=== PATIENT | female | born 1970 | race Caucasian/White ===

== ENCOUNTER 2016-03-29 16:42 | Inpatient (IN) | payer OTHER ==
[~2016-03-29] VITALS: Ht 162.6 cm; Wt 54.4 kg
[2016-03-29] VITALS (9 sets, daily range): BP systolic 96–125; BP diastolic 60–85; PULSE 116–122; RESP 16–22; O2SAT 97–100
--- NOTE | 2016-03-29 16:43 | ED.REPORT ---
HPI-Chest Pain 40 and Over Date of Service Mar 29, 2016 ED Provider: Nursing Notes Stated Complaint: INTUBATED General Time Seen by MD: 16:43 Discharge & Departure Referrals: Carlton Villarreal MD (PCP/Family) Des Munoz MD Mar 29, 2016 16:43
[2016-03-29] MEDS ORDERED: 0.9% Sodium Chloride 1,000 ML IV ONE ×2 (16:46→22:15)
[2016-03-29] MEDS ORDERED: Albuterol 0.5% (5mg/mL) 20 mL Inhalation Solution ONE (16:46)
--- NOTE | 2016-03-29 16:46 | ED.REPORT ---
HPI-General Illness Date of Service Mar 29, 2016 ED Provider: Bryn Wilson MD The patient is a 45 year old female who was brought to the emergency department by EMS for respiratory distress. The patient has been sick for the last few weeks with a cough and worsening shortness of breath. The patient also mentioned chest pain and diaphoresis. She has been trying to treat herself with albuterol, steroids, and Atrovent. There was also a mention of recently using cocaine, timeframe is unclear. When medics arrived the patient was tripoding, short of breath and very anxious. They attempted a DuoNeb and 1 mg Versed with no improvement. The patient continued to decline and was subsequently intubated. Medics have given a total of 5 mg Versed, 20 etomidate, 140 succinylcholine, and 400 ketamine. Nursing Notes Stated Complaint: INTUBATED Nursing Notes Reviewed: Yes Allergies: Coded Allergies: No Known Allergies (Unverified , 03/29/16) Unable to Obtain Active Prescriptions or Reported Meds General Time Seen by MD: 16:45 Chief Complaint Other (respiratory distress) Hx Obtained From: Other family..., EMS Unable to Obtain Hx: Patient condition Arrived By: Ambulance Sudden in Onset?: Yes Onset Occurred: 1 - 4 hours ago Symptom Duration: Since onset Recent Healthcare: No recent hospitalization Similar Sx Previous: No Past Medical History Smoking History Unknown if Ever Smoker Social History Other Social History: , Local resident Ambulatory Status Independent Unable to Obtain History Past medical history, Past surgical history Review of Systems Unable to Obtain ROS Patient condition, Intubated Full Review of Systems Respiratory: Reports: Non-productive cough, Shortness of breath Cardiovascular: Reports: Chest pain Skin: Reports Diaphoresis Physical Exam Vital Signs Vital Signs Date Time Temp Pulse Resp B/P Pulse Ox O2 Delivery O2 Flow Rate FiO2 03/29/16 17:17 125 03/29/16 16:49 118 19 96/64 100 ET Tube Initial VS: Reviewed Head / Eyes: Atraumatic, Normocephalic, PERRL Neck: Supple, Non-tender, Full range of motion Abdomen / GI: Soft, Non-tender, No guarding, No rebound, No distention Extremities: No swelling Skin: Warm, Dry Alertness: Positive: Sedated, Unresponsive Intubated Head / Eyes: Atraumatic, Normocephalic No sign of trauma. Pupils equal and reactive. ENT: Mucous membranes moist Respiratory / Chest: Breath sounds = bilat Resp Distress / Stridor: Positive: Intubated Diminished Breath Sounds: Positive: Decreased bilateral Wheezing / Retractions: Positive: Wheezing moderate Cardiovascular: Regular rhythm, Heart sounds NL Heart Rate / Rhythm: Positive: Tachycardia Upper Extremities Upper Extremity / MS: Neurologic intact, Vascular intact Injection site about her right AC fossa Mental Status: Positive: Pharmacologically sedated, Unresponsive PSYCHIATRIC: Unable due to the patient's condition Interpretation & Diagnostics Lab Results Interpretation Result Diagram: 03/29/16 1657 03/29/16 1657 Test 03/29/16 16:57 03/29/16 17:48 White Blood Count 10.7th/mm3 (3.8-10.1) Red Blood Count 5.43mil/mm3 (3.90-5.20) Hemoglobin 14.9g/dL (12.0-15.6) Hematocrit 45.2% (35.0-46.0) Mean Corpuscular Volume 83.2fL (81-100) Mean Corpuscular Hemoglobin 27.4pg (27.0-35.0) Mean Corpuscular Hemoglobin Concent 33.0% (32.0-37.0) Red Cell Distribution Width 14.8% (12.3-15.4) Platelet Count 316bil/L (150-400) Neutrophils (%) (Auto) 76.9% (40-74) Lymphocytes (%) (Auto) 11.7% (14-46) Monocytes (%) (Auto) 7.8% (4-12) Eosinophils (%) (Auto) 2.9% (0-5) Basophils (%) (Auto) 0.4% (0-3) Sodium Level 140mEq/L (134-144) Potassium Level 5.2mEq/L (3.5-5.2) Chloride Level 105mEq/L (97-108) Carbon Dioxide Level 18mmol/L (18-29) Blood Urea Nitrogen 6mg/dL (6-24) Creatinine 0.74mg/dL (0.57-1.00) Estimat Glomerular Filtration Rate 121mL/min (>59) Glucose Level 185mg/dL (60-99) Lactic Acid Level 2.6mmol/L (0.4-2.0) Calcium Level 7.9mg/dL (8.5-10.1) Magnesium Level 2.4mg/dL (1.6-2.6) Total Bilirubin 0.2mg/dL (0.0-1.2) Aspartate Amino Transf (AST/SGOT) 26U/L (0-50) Alanine Aminotransferase (ALT/SGPT) 13U/L (0-32) Alkaline Phosphatase 71U/L (25-150) Troponin T 0.053ug/L (0.0-0.011) Pro-B-Type Natriuretic Peptide 105.5pg/mL (0-249) Total Protein 7.9g/dL (6.4-8.4) Albumin 3.9g/dL (3.4-5.0) Procalcitonin < 0.05ng/mL (See Comment) Urine Color Yellow (YELLOW) Urine Appearance Clear (CLEAR,HAZY) Urine pH 6.0 (5.0-8.0) Urine Specific [place] 1.028 (1.003-1.035) Urine Protein 30mg/dL (NEG,TRACE) Urine Glucose (UA) Negativemg/dL (NEGATIVE) Urine Ketones Negativemg/dL (NEGATIVE) Urine Occult Blood Negative (NEGATIVE) Urine Nitrite Negative (NEGATIVE) Urine Bilirubin Negative (NEGATIVE) Urine Urobilinogen Normalmg/dL (NORMAL) Urine Leukocyte Esterase Negative (NEGATIVE) Urine RBC 0-2/hpf (0-2) Urine WBC 0-5/hpf (0-5) Urine Epithelial Cells Occasional/hpf (NONE-MOD) Urine Crystals None seen (NONE SEEN) Urine Bacteria Few/hpf (NONE-FEW) Urine Hyaline Casts None/lpf (NONE) Urine Granular Casts Rare (NONE SEEN) Urine Waxy Casts None seen (NONE SEEN) Urine Red Blood Cell Casts None seen (NONE SEEN) Urine White Blood Cell Casts None seen (NONE SEEN) Urine Mucus None seen (None Seen) Urine Trichomonas None seen (NONE SEEN) Urine Yeast None (NONE SEEN) Urinalysis Comment None Urine Culture Reflexed Not indicated ECG Interpretation ECG Interpretation: Sinus rhythm with a rate of 119 bpm Normal axis Normal intervals No ST segment changes Anterior Q waves No priors for comparison Time: 17:20 Interpreted by: ED physician X-Ray Chest Interpretation Chest Xray Interpretation: IMPRESSION: No acute process. Dictated by: Karan Ramsey M.D. on 03/29/2016 at 17:07 Interpretation / Wet Read by: Interpret - Radiologist Re-Eval/Medical Decision Med Decision/Clinical Course The patient is a 45 year old female who was brought to the emergency department by EMS for respiratory distress. The patient has been sick for the last few weeks with a cough and worsening shortness of breath. The patient also mentioned chest pain and diaphoresis. She has been trying to treat herself with albuterol, steroids, and Atrovent. There was also a mention of recently using cocaine, timeframe is unclear. When medics arrived the patient was tripoding, short of breath and very anxious. They attempted a DuoNeb and 1 mg Versed with no improvement. The patient continued to decline and was subsequently intubated. Medics have given a total of 5 mg Versed, 20 etomidate, 140 succinylcholine, and 400 ketamine. Upon arrival the patient was intubated and mechanically ventilated with very poor air movement throughout both lung galdamez and diffuse wheezing. She had good oxygen saturation and ventilator settings were appropriately modified in the setting of her obstructive pulmonary disease. Chest x-ray verified endotracheal tube placement and there was no focal pneumonia or pneumothorax. Given the severity of the patient's presentation I administered IV magnesium, terbutaline and methylprednisolone. She was placed on continuous albuterol through her endotracheal tube. She was initially borderline hypotensive and sedation was achieved with IV fentanyl and Versed. Her blood pressure improved with IV fluids and she remained hemodynamically stable. Laboratory studies were notable as below: CBC: leukocytosis of 10.7, hematocrit 45.2, CMP: BUN 6, creatinine 0.74, glucose 185, lactate 2.6, troponin 0.053, UDS Positive for benzodiazepines, methamphetamine, tricyclic antidepressants, ecstasy, and amphetamines negative I suspect that the patient's polysubstance abuse may be a continuing factor to her severe acute onset of respiratory distress though history is extremely limited because she is intubated. Of note she had a somewhat elevated troponin though her EKG was reassuring. I suspect that her elevated troponin may be stress induced and in the setting of multiple sympathomimetic drugs. We will trend her troponin. The patient was discussed with the admitting ICU physician accepted for further management. She remained in the emergency department for a prolonged period of time due to lack of immediate availability of ICU beds. Source of Hx: Old records, EMS, Family Time of Eval: 17:00 Re-Evaluation/Progress Note: Rechecked the patient. Time of Eval: 17:20 Re-Evaluation/Progress Note: The ET tube is in good placement. Time of Eval: 17:39 Re-Evaluation/Progress Note: Rechecked the patient. Her is at bedside. Discussed her current condition and plan for admission with her . Time of Eval: 18:04 Re-Evaluation/Progress Note: Rechecked the patient. Her vital signs are stable. Consultation : Referral / Consult Name: Kiran Whitman MD Consulted With: Hospitalist Call Returned at: 16:55 Education Consultant: Will see patient, Agrees with eval, Agrees with plan, Accepts admit Counseled Regarding: Diagnosis, Lab results, Need for admission Discharge & Departure Primary Impression: Acute respiratory failure Respiratory failure complication: hypoxia Qualified Code: J96.01 - Acute respiratory failure with hypoxia Additional Impressions: Polysubstance abuse Hypoxia Asthma Asthma severity: unspecified severity Asthma complication type: with status asthmaticus Qualified Code: J45.902 - Unspecified asthma with status asthmaticus Elevated troponin Leukocytosis Leukocytosis type: unspecified Qualified Code: D72.829 - Elevated white blood cell count, unspecified Dehydration Elevated lactic acid level Disposition: ADMITTED TO HOSPITAL Discharge Condition All VS Reviewed: Yes Condition: Stable Referrals: Carlton Villarreal MD (PCP/Family) Crit Care Except Billable Proc Time Spent: 165-194 minutes Services Performed: Patient management by me, Time spent at bedside, Reviewing test results, Reviewing imaging, Discussing patient care, Documentation in record, Time with fam/surrogate Scribe Attestation Portions of this note were transcribed by Monika Tomas. I, Dr. Wilson personally performed the history, physical exam and medical decision-making; I reviewed and confirmed the accuracy of the information in the transcribed note. Signed by: Jose Luis Cui, 03/29/2016 and 7235. copies to: Carlton Villarreal MD, Beck O MD Mar 29, 2016 16:46 Monika Tomas Mar 29, 2016 16:54
[2016-03-29] MEDS ORDERED: Magnesium Sulf 2 Gm/50mL Water 2 GM in IV Premix 1 EACH IV ONE (16:50)
[2016-03-29] MEDS ORDERED: Albuterol 2.5 mg/3 mL Inhalation Solution NEB ONE ×2 (16:50)
[2016-03-29] MEDS ORDERED: Albuterol-Ipratropium 3 mL Inhalation Solution NEB ONE ×2 (16:50)
[2016-03-29] MEDS ORDERED: MethylprednisoLONE Sodium Succinate 62.5 mg/mL 2 mL Inj IVPUSH ONE (16:50)
[2016-03-29] MEDS: Propofol Inj 1,000,000 MCG in IV Premix 1 EACH IV SCH (16:56)
[2016-03-29] MEDS ORDERED: Alum-Mag Hydrox-Simeth 30 mL Suspension PO PRN (17:00)
[2016-03-29] MEDS ORDERED: Midazolam 5 mg/mL 10 mL Inj IV PRN (17:00)
[2016-03-29] MEDS ORDERED: Ondansetron 2 mg/mL 2 mL Inj IVPUSH PRN (17:00)
[2016-03-29] MEDS ORDERED: Senna-Docusate 8.6-50 mg Tablet PO PRN (17:00)
[2016-03-29] MEDS ORDERED: fentaNYL 2,500 mCg/250 mL 2,500 MCG in IV Premix 1 EACH IV SCH (17:00)
[2016-03-29 17:06] LABS: BASOPHILS % (AUTO) 0.4 % (0-3); EOSINOPHILS % (AUTO) 2.9 % (0-5); MONOCYTES % (AUTO) 7.8 % (4-12); Mean Corpuscular Hemoglobin 27.4 pg (27.0-35.0); Mean Corpuscular Volume 83.2 fL (81-100); NEUTROPHILS % (AUTO) 76.9 % (40-74); Platelet Count 316 bil/L (150-400)
--- NOTE | 2016-03-29 17:11 | DRSVH ---
PROCEDURE: X-RAY CHEST ONE VIEW, PORTABLE ([id number]) INDICATIONS: intubated TECHNIQUE: One view of the chest was acquired. COMPARISON: None. FINDINGS: Surgical changes and devices: An ETT is present, tip of which is in expected location. Lungs and pleura: No pleural effusions or pneumothorax. Lungs are clear. Mediastinum: Mediastinal contours appear normal. Heart size is normal. Bones and chest wall: No suspicious bony lesions. Overlying soft tissues appear unremarkable. IMPRESSION: No acute process. Dictated by: Karan Ramsey M.D. on 03/29/2016 at 17:07 Approved by: Karan Ramsey M.D. on 03/29/2016 at 17:07
[2016-03-29 17:47] LABS: Magnesium 2.4 mg/dL (1.6-2.6)
[2016-03-29 17:48] LABS: TROPONIN T 0.053 ug/L (0.0-0.011)
[2016-03-29] MEDS: 0.9% Sodium Chloride 1,000 ML IV SCH (17:49)
[2016-03-29] MEDS: fentaNYL 2,500 mCg/250 mL 2,500 MCG in IV Premix 1 EACH IV PRN (17:50)
[2016-03-29 17:59] LABS: APPEARANCE,URINE CLEAR (CLEAR,HAZY); COLOR,URINE YELLOW (YELLOW)
[2016-03-29 18:00] LABS: OCCULT BLOOD,URINE NEGATIVE (NEGATIVE); UROBILINOGEN,URINE NORMAL (NORMAL)
[2016-03-29] MEDS: Vancomycin Dose per Pharmacist XX SCH (19:10)
--- NOTE | 2016-03-29 19:31 | ABG ---
DateTimeAnalyzed 19:27:00 -_ pH ____7.189 - 7.350 7.450 pCO2 ___53.6__ -mmHg 35.0 45.0 pO2 176 -mmHg 69.0 116 HCO3- ___19.6__ -mmol/L 22.0 26.0 ABE ___-8.7__ -mmol/L -2.0 2.0 tHb ___13.5__ -g/dL O2Hb ___97.6__ -% COHb ____0.1__ -% MetHb ____1.0__ -% sO2 ___98.7__ -% FIO2 ___50.0__ -% PEEP ____5.0__ -cmH2O Set_RR ___16.0__ -b/min Vt __460.0__ -L Drawn By MK - Date/Time Notified____ 19:31:00 -_ Oxygen Device 1 VENTILATOR - Notified By MK - B 767 -mmHg tO2 ___18.9__ -Vol% Jamir test _Positive -
[2016-03-29] MEDS ORDERED: Vancomycin Inj 1,750 MG in Dextrose 5% 500 ML IV ONE (19:45)
[2016-03-29] MEDS: Chlorhexidine 0.12% 15 mL Oral Solution MT SCH (20:23)
--- NOTE | 2016-03-29 22:26 | PCM.HPMED ---
Subjective Date of Service Mar 29, 2016 Primary Provider: Admitting Physician: Kiran Whitman MD Primary Care Physician: Carlton Villarreal MD Attending Physician: Kiran Whitman MD Admit Status: From the Emergency Department, Full Admit, Critical Care Chief Complaint: Acute Respiratory failure History of Present Illness: Leanna Samano is a 45 year old female who was brought to the emergency department by EMS for respiratory distress. History from as patient was intubated on arrival. Patient has been sick for the last few weeks with a cough and worsening shortness of breath. The patient also mentioned chest pain and diaphoresis. She has been trying to treat herself with albuterol, steroids, and Atrovent but without any relief. There was also a mention of recently using cocaine, timeframe is unclear. denies any new carpeting or pets. Patient is a smoker with prior history of Meth abuse but states she has been clean for years. No sick contacts or travels reported When medics arrived the patient was tripoding, short of breath and very anxious. They attempted a DuoNeb and 1 mg Versed with no improvement. The patient continued to decline and was subsequently intubated. Medics have given a total of 5 mg Versed, 20 etomidate, 140 succinylcholine, and 400 ketamine. Review of Systems: Unable to be obtained Allergies Coded Allergies: No Known Allergies (Unverified , 03/29/16) Home Medications Unclear of what patient takes ( thinks its just inhalers) PMH Asthma Surgical History Not known ( does not know) Family History Both parents are healthy Social History Hx Alcohol Use: No Hx Substance Use: Yes ( states she previously used Meth) Hx Tobacco Use: Yes Smoking Status: Current Every Day Smoker Living Arrangement: with Family (with her ) Exam Vital Signs Vital Sign - Last Date Time Temp Pulse Resp B/P Pulse Ox O2 Delivery O2 Flow Rate FiO2 03/29/16 18:01 120 19 121/85 98 ET Tube Exam General: Sedated on the Ventilator Eyes: PERRLA, Scleral Anicteric Mouth: Mouth Normal, Mucous Membranes Moist/[place] Neck: Supple, no Thyromegaly, trachea central. Chest & Lungs: diffuse wheeze with crackles Cardiovascular: Normal S1, Normal S2, No Murmurs/Rubs/Gallops, Regular Rate/ Rhythm, (No JVD, no peripheral edema) Pulses: Radial (present and equal), Dorsalis Pedi (present and equal) Abdomen: Soft, Non-tender, Non-distended, Normoactive bowel tones. Musculoskeletal: Unremarkable. Normal range of motion, no swollen or erythematous joints Extremities: No edema, no cyanosis, no clubbing. Skin: No rashes. Warm and dry, no erythematous areas Neurological: Moving all extremity Lymphatic: Lymph nodes Cervical and Axillary not palpable. Lab and Diagnostics Labs Laboratory Tests Test 03/29/16 16:57 03/29/16 17:48 White Blood Count 10.7th/mm3 (3.8-10.1) Red Blood Count 5.43mil/mm3 (3.90-5.20) Hemoglobin 14.9g/dL (12.0-15.6) Hematocrit 45.2% (35.0-46.0) Mean Corpuscular Volume 83.2fL (81-100) Mean Corpuscular Hemoglobin 27.4pg (27.0-35.0) Mean Corpuscular Hemoglobin Concent 33.0% (32.0-37.0) Red Cell Distribution Width 14.8% (12.3-15.4) Platelet Count 316bil/L (150-400) Neutrophils (%) (Auto) 76.9% (40-74) Lymphocytes (%) (Auto) 11.7% (14-46) Monocytes (%) (Auto) 7.8% (4-12) Eosinophils (%) (Auto) 2.9% (0-5) Basophils (%) (Auto) 0.4% (0-3) Sodium Level 140mEq/L (134-144) Potassium Level 5.2mEq/L (3.5-5.2) Chloride Level 105mEq/L (97-108) Carbon Dioxide Level 18mmol/L (18-29) Blood Urea Nitrogen 6mg/dL (6-24) Creatinine 0.74mg/dL (0.57-1.00) Estimat Glomerular Filtration Rate 121mL/min (>59) Glucose Level 185mg/dL (60-99) Lactic Acid Level 2.6mmol/L (0.4-2.0) Calcium Level 7.9mg/dL (8.5-10.1) Magnesium Level 2.4mg/dL (1.6-2.6) Total Bilirubin 0.2mg/dL (0.0-1.2) Aspartate Amino Transf (AST/SGOT) 26U/L (0-50) Alanine Aminotransferase (ALT/SGPT) 13U/L (0-32) Alkaline Phosphatase 71U/L (25-150) Troponin T 0.053ug/L (0.0-0.011) Pro-B-Type Natriuretic Peptide 105.5pg/mL (0-249) Total Protein 7.9g/dL (6.4-8.4) Albumin 3.9g/dL (3.4-5.0) Procalcitonin < 0.05ng/mL (See Comment) Urine Color Yellow (YELLOW) Urine Appearance Clear (CLEAR,HAZY) Urine pH 6.0 (5.0-8.0) Urine Specific [place] 1.028 (1.003-1.035) Urine Protein 30mg/dL (NEG,TRACE) Urine Glucose (UA) Negativemg/dL (NEGATIVE) Urine Ketones Negativemg/dL (NEGATIVE) Urine Occult Blood Negative (NEGATIVE) Urine Nitrite Negative (NEGATIVE) Urine Bilirubin Negative (NEGATIVE) Urine Urobilinogen Normalmg/dL (NORMAL) Urine Leukocyte Esterase Negative (NEGATIVE) Urine RBC 0-2/hpf (0-2) Urine WBC 0-5/hpf (0-5) Urine Epithelial Cells Occasional/hpf (NONE-MOD) Urine Crystals None seen (NONE SEEN) Urine Bacteria Few/hpf (NONE-FEW) Urine Hyaline Casts None/lpf (NONE) Urine Granular Casts Rare (NONE SEEN) Urine Waxy Casts None seen (NONE SEEN) Urine Red Blood Cell Casts None seen (NONE SEEN) Urine White Blood Cell Casts None seen (NONE SEEN) Urine Mucus None seen (None Seen) Urine Trichomonas None seen (NONE SEEN) Urine Yeast None (NONE SEEN) Urinalysis Comment None Urine Culture Reflexed Not indicated Microbiology 03/29/16 Blood Culture, Received Pending Result Diagram: 03/29/167 03/29/161656 X-Rays, CTs and MRIs X-RAY CHEST ONE VIEW, PORTABLE 03/29 IMPRESSION: No acute process. Dictated by: Karan Ramsey M.D. on 03/29/2016 at 17:07 Approved by: Karan Ramsey M.D. on 03/29/2016 at 17:07 Assessment & Plan Leanna Samano is a 45 year old female who was brought to the emergency department by EMS for respiratory distress 1. Acute Hypoxic Respiratory Failure due to Asthma exacerbation. Present on admission Possible Viral infection triggering Asthma exacerbation. Possible she patient may be taking illegal drugs that may be contributing to her current demise. - continue Ventilator support, currently stable with current setting - Bronchodilators ordered - systemic steroids: Solu-Medrol 80 mg IV q 8 hours - Propofol and Fentanyl drips - will consult Pulmonology in the morning for ventilator management 2. Lactic acidosis. Present on admission Due to tissue hypoxia - trending levels till normal 3. Elevated troponin due to demand ischemia. Present on admission NO prior history of Coronary disease. - trending Troponin overnight - consider echo in the morning if troponin continues to elevate 4. Polysubstance Abuse Urine drug screen positive for amphetamine and cannabinoids. May be at risk for endocarditis. Nurse reporting possible track phillip on arms - Blood cultures send. if positive then echo will be pursued - Vancomycin IV, empirically 5. Nicotine Dependence - will discuss cessation when patient is extubated - Acetaminophen as needed for mild pain/fever/headache - Bowel regimen as needed - Antiemetic as needed Patient admitted under inpatient status with expected length of stay > 2 midnights for severity of present symptoms, complexities of treatment plan and risk for adverse event . Resuscitation Status: CPR: Attempt Resuscitation Time spent 1 hour critical care time spend Kiran Whitman MD Mar 29, 2016 18:07
--- NOTE | 2016-03-29 22:35 | ABG ---
DateTimeAnalyzed 22:30:00 -_ pH ____7.208 - 7.350 7.450 pCO2 ___50.5__ -mmHg 35.0 45.0 pO2 222 -mmHg 69.0 116 HCO3- ___19.3__ -mmol/L 22.0 26.0 ABE ___-8.3__ -mmol/L -2.0 2.0 tHb ___12.5__ -g/dL O2Hb ___97.9__ -% COHb ____0.1__ -% MetHb ____1.1__ -% sO2 ___99.1__ -% FIO2 ___50.0__ -% PEEP ____5.0__ -cmH2O Set_RR ___22.0__ -b/min Vt __380.0__ -L Drawn By blf - Date/Time Notified____ 22:35:00 -_ Spontaneous_RR ___24.0__ -b/min Oxygen Device 1 VENTILATOR - Notified By blf - Not[facility] -_ B 765 -mmHg tO2 ___17.7__ -Vol% OrderingPhysicianInitials mf - Jamir test N/A -
[2016-03-29] MEDS: Albuterol 0.5% (5mg/mL) 20 mL Inhalation Solution NEB SCH (22:49)
[2016-03-29] MEDS ORDERED: Ipratropium 0.02% 0.5 mg/2.5 mL Inhalation Solution NEB PRN (23:10)
[2016-03-29] MEDS: Albuterol 0.5% (5mg/mL) 20 mL Inhalation Solution NEB PRN (23:41)
[2016-03-30] VITALS (11 sets, daily range): BP systolic 97–126; BP diastolic 45–63; PULSE 110–119; RESP 14–24; O2SAT 96–100
[2016-03-30] MEDS: Chlorhexidine 0.12% 15 mL Oral Solution MT SCH ×6 (00:08→20:19)
[2016-03-30] MEDS: Heparin 5,000 Unit/mL Inj SUBQ SCH ×3 (00:08→17:26)
[2016-03-30] MEDS: MethylprednisoLONE Sodium Succinate 62.5 mg/mL 2 mL Inj IVPUSH SCH ×3 (00:08→17:26)
[2016-03-30] MEDS: Albuterol 0.5% (5mg/mL) 20 mL Inhalation Solution NEB PRN ×3 (00:17→05:33)
[2016-03-30] MEDS: Ipratropium 0.02% 0.5 mg/2.5 mL Inhalation Solution NEB SCH ×6 (00:17→20:11)
[2016-03-30] MEDS: Albuterol 2.5 mg/3 mL Inhalation Solution NEB SCH (00:30)
[2016-03-30] MEDS: Albuterol 0.5% (5mg/mL) 20 mL Inhalation Solution NEB SCH ×11 (00:30→20:11)
--- NOTE | 2016-03-30 00:36 | ABG ---
DateTimeAnalyzed 00:31:38 -_ pH ____7.199 - 7.350 7.450 pCO2 ___51.4__ -mmHg 35.0 45.0 pO2 111 -mmHg 70.0 100 HCO3- ___20.0__ -mmol/L 22.0 26.0 ABE ___-7.6__ -mmol/L -2.0 2.0 tHb ___12.7__ -g/dL 12.0 18.0 O2Hb ___96.9__ -% 95.0 COHb ____0.4__ -% 1.5 MetHb ____0.4__ -% 0.4 1.5 sO2 ___97.7__ -% FIO2 ___21.0__ -% PEEP ____5.0__ -cmH2O Set_RR 24 -b/min Vt __330.0__ -L Drawn By MD - Date/Time Notified____ 00:36:00 -_ Spontaneous_RR 26 -b/min Oxygen Device 1 VENTILATOR - Notified By MD - Notified Whom RN K.HERLICKSON - B 763 -mmHg K+ ____3.8__ -mmol/L tO2 ___17.4__ -Vol% Jamir test N/A -
[2016-03-30] MEDS: 0.9% Sodium Chloride 1,000 ML IV SCH ×2 (01:21→05:44)
[2016-03-30] MEDS: Propofol Inj 1,000,000 MCG in IV Premix 1 EACH IV SCH ×5 (01:22→19:55)
--- NOTE | 2016-03-30 02:13 | ABG ---
DateTimeAnalyzed 02:09:07 -_ pH ____7.205 - 7.350 7.450 pCO2 ___50.1__ -mmHg 35.0 45.0 pO2 116 -mmHg 70.0 100 HCO3- ___19.8__ -mmol/L 22.0 26.0 ABE ___-7.8__ -mmol/L -2.0 2.0 tHb ___12.4__ -g/dL 12.0 18.0 O2Hb ___97.1__ -% 95.0 COHb ____0.5__ -% 1.5 MetHb ____0.5__ -% 0.4 1.5 sO2 ___98.1__ -% FIO2 ___21.0__ -% PEEP ___10.0__ -cmH2O Set_RR 14 -b/min Vt __500.0__ -L Drawn By MD - Date/Time Notified____ 02:13:00 -_ Spontaneous_RR 14 -b/min Oxygen Device 1 VENTILATOR - Notified By MD - Notified Whom RN K. HERLICKSON -____ B 762 -mmHg K+ ____3.9__ -mmol/L tO2 ___17.1__ -Vol% Jamir test N/A -
[2016-03-30] MEDS ORDERED: 0.9% Sodium Chloride 500 ML IV ONE (02:30)
[2016-03-30] MEDS: Insulin Human REGular 300 Unit/3 mL Inj - Low SUBQ SCH ×4 (02:54→20:30)
--- NOTE | 2016-03-30 03:28 | PCM.CONPHA ---
Subjective Date of Service: Mar 29, 2016 Requesting Provider: Kiran Whitman MD Acute Respiratory failure Reason for Pharmacy Consult: Vancomycin Dosing Objective Vital Signs Date Time Temp Pulse Resp B/P Pulse Ox O2 Delivery O2 Flow Rate FiO2 03/30/16 00:05 Ventilator 03/30/16 00:05 36.4 111 24 104/62 99 Mechanical Ventilator 40 03/29/16 23:40 40 03/29/16 22:50 100 40 03/29/16 22:00 100 40 03/29/16 21:30 40 03/29/16 21:00 100 40 03/29/16 20:30 100 40 03/29/16 20:15 36.5 122 22 120/66 99 Mechanical Ventilator 50 03/29/16 20:15 Ventilator 03/29/16 20:07 36.9 121 16 105/60 97 Mechanical Ventilator 03/29/16 18:24 116 16 125/74 100 ET Tube 03/29/16 18:01 120 19 121/85 98 ET Tube 03/29/16 17:17 125 03/29/16 16:49 118 19 96/64 100 ET Tube Intake and Output 03/28/16 03/29/16 03/30/16 00:00 00:00 00:00 Intake Total 1050 ml Balance 1050 ml Weight (Kilograms): 61.100 Height (Feet): 5 Height (Inches): 4.00 Test 03/29/16 16:57 03/29/16 17:48 03/29/16 23:42 03/30/16 02:30 White Blood Count 10.7th/mm3 (3.8-10.1) Red Blood Count 5.43mil/mm3 (3.90-5.20) Hemoglobin 14.9g/dL (12.0-15.6) Hematocrit 45.2% (35.0-46.0) Mean Corpuscular Volume 83.2fL (81-100) Mean Corpuscular Hemoglobin 27.4pg (27.0-35.0) Mean Corpuscular Hemoglobin Concent 33.0% (32.0-37.0) Red Cell Distribution Width 14.8% (12.3-15.4) Platelet Count 316bil/L (150-400) Neutrophils (%) (Auto) 76.9% (40-74) Lymphocytes (%) (Auto) 11.7% (14-46) Monocytes (%) (Auto) 7.8% (4-12) Eosinophils (%) (Auto) 2.9% (0-5) Basophils (%) (Auto) 0.4% (0-3) Sodium Level 140mEq/L (134-144) Potassium Level 5.2mEq/L (3.5-5.2) Chloride Level 105mEq/L (97-108) Carbon Dioxide Level 18mmol/L (18-29) Blood Urea Nitrogen 6mg/dL (6-24) Creatinine 0.74mg/dL (0.57-1.00) Estimat Glomerular Filtration Rate 121mL/min (>59) Glucose Level 185mg/dL (60-99) Calcium Level 7.9mg/dL (8.5-10.1) Magnesium Level 2.4mg/dL (1.6-2.6) Total Bilirubin 0.2mg/dL (0.0-1.2) Aspartate Amino Transf (AST/SGOT) 26U/L (0-50) Alanine Aminotransferase (ALT/SGPT) 13U/L (0-32) Alkaline Phosphatase 71U/L (25-150) Pro-B-Type Natriuretic Peptide 105.5pg/mL (0-249) Total Protein 7.9g/dL (6.4-8.4) Albumin 3.9g/dL (3.4-5.0) Procalcitonin < 0.05ng/mL (See Comment) Urine Color Yellow (YELLOW) Urine Appearance Clear (CLEAR,HAZY) Urine pH 6.0 (5.0-8.0) Urine Specific [place] 1.028 (1.003-1.035) Urine Protein 30mg/dL (NEG,TRACE) Urine Glucose (UA) Negativemg/dL (NEGATIVE) Urine Ketones Negativemg/dL (NEGATIVE) Urine Occult Blood Negative (NEGATIVE) Urine Nitrite Negative (NEGATIVE) Urine Bilirubin Negative (NEGATIVE) Urine Urobilinogen Normalmg/dL (NORMAL) Urine Leukocyte Esterase Negative (NEGATIVE) Urine RBC 0-2/hpf (0-2) Urine WBC 0-5/hpf (0-5) Urine Epithelial Cells Occasional/hpf (NONE-MOD) Urine Crystals None seen (NONE SEEN) Urine Bacteria Few/hpf (NONE-FEW) Urine Hyaline Casts None/lpf (NONE) Urine Granular Casts Rare (NONE SEEN) Urine Waxy Casts None seen (NONE SEEN) Urine Red Blood Cell Casts None seen (NONE SEEN) Urine White Blood Cell Casts None seen (NONE SEEN) Urine Mucus None seen (None Seen) Urine Trichomonas None seen (NONE SEEN) Urine Yeast None (NONE SEEN) Urinalysis Comment None Urine Culture Reflexed Not indicated Urine Opiates Screen Negative Urine Methadone Screen Negative Urine Barbiturates Screen Negative Urine Amphetamines Screen Positive Urine Benzodiazepines Screen Positive Urine Cocaine Metabolite Screen Negative Urine Cannabinoids Screen Positive Lactic Acid Level 4.0mmol/L (0.4-2.0) Assessment/Plan Assessment/Plan A/ - 45 y/o female patient brought in ED by EMS, intubated on route for acute respiratory distress. Vancomycin was ordered to empirically covered - WBC: 10.7, afebrile. Flu, MRSA, sputum, and blood cultures: pending - wt: 61.1 kg, ht: 162.6 cm, SCr: 0.74 mg/dL, estimated clearance (ABW) ~ 92 mls/min, t1/2 ~ 9hrs - Target trough: 15-20 - Received Vancomycin 1.75G iv loading dose. The dose was calculated based on wrong weight entered at that time 81.1kg (20kg difference) P/ - Give Vancomycin 1G iv q12h. Trough level ordered before 4th dose @0800 on 03/31. This regimen would yield a trough around 17-18 Pharmacy will continue to follow and make necessary adjustment according to patient's clinical status and labs results Thank you. Cali Delacruz, PharmD, [facility] Ulysses Delacruz Mar 30, 2016 03:28
--- NOTE | 2016-03-30 04:22 | ABG ---
DateTimeAnalyzed 04:17:42 -_ pH ____7.247 - 7.350 7.450 pCO2 ___47.9__ -mmHg 35.0 45.0 pO2 125 -mmHg 70.0 100 HCO3- ___20.8__ -mmol/L 22.0 26.0 ABE ___-6.1__ -mmol/L -2.0 2.0 tHb ___12.6__ -g/dL 12.0 18.0 O2Hb ___97.4__ -% 95.0 COHb ____0.5__ -% 1.5 MetHb ____0.8__ -% 0.4 1.5 sO2 ___98.7__ -% FIO2 ___21.0__ -% PEEP ___10.0__ -cmH2O Set_RR 14 -b/min Vt __500.0__ -L Drawn By MD - Date/Time Notified____ 04:21:00 -_ Spontaneous_RR 14 -b/min Oxygen Device 1 VENTILATOR - Notified By MD - Notified Whom RN K.HERLICKSON - B 761 -mmHg K+ ____4.0__ -mmol/L tO2 ___17.4__ -Vol% Jamir test N/A -
--- NOTE | 2016-03-30 05:10 | NUR ---
admit note/resp status admit info done per info given per pt's parents, pt intubated prior to coming to ccu per moises from er, pt sedated on propofol and fentanyl gtts, hob up, ls- decreased and insp and exp wheezes, q30min to q1hr nebs given per rt--see orders, pt ls still wheezy but sounds like lung sounds are less tight, sml amount of whitish thin sputum per ett, oral care done, hospitalist aware of abg results and vent changes made post abg results per rt, medical staff services manager called by hospitalist and involved in pt's resp care, vent changes done per medical staff services manager orders, abg's improving, cxr done and hospitalist spoke with radiologist about having cxr read during the night, md aware pt's parents stated pt had moved a while ago to get out of a living area that had mold, propofol up to 45mcg/kg/min and fentanyl gtt up to 200mcg/hr per md order to help pt work with vent, appears to be helpful, nimbex use discussed then place on hold per pulmonology, scd'd on , turn q2hrs, hospitalist aware of pt's lab results, especially troponin and lactic acid, ivf given per orders with boluses, priscilla uop per f/c, am lab results pending, ogt placement wnl, ogt to lis, bt present, no bm, abd snt, tele- st, hr 105-120, bp low normal, see ccu flow sheet, for vital signs and vent settings, plan:nebs, resp support,
[2016-03-30 05:12] LABS: Mean Corpuscular Hemoglobin 26.7 pg (27.0-35.0); Mean Corpuscular Volume 85.2 fL (81-100)
[2016-03-30 05:39] LABS: Magnesium 2.2 mg/dL (1.6-2.6); Phosphorus 2.5 mg/dL (2.5-4.9)
[2016-03-30] MEDS: fentaNYL 2,500 mCg/250 mL 2,500 MCG in IV Premix 1 EACH IV PRN ×2 (06:40→19:54)
[2016-03-30] MEDS ORDERED: Vancomycin Inj 1,000 MG in IV Premix 1 EACH IV SCH ×2 (08:30→22:00)
[2016-03-30] MEDS: Vancomycin Dose per Pharmacist XX SCH (09:22)
--- NOTE | 2016-03-30 09:33 | DRSVH ---
PROCEDURE: X-RAY CHEST ONE VIEW, PORTABLE ([id number]) INDICATIONS: intubated TECHNIQUE: One view of the chest was acquired. COMPARISON: [facility], CR, XR CHEST 1VW (PORTABLE), 03/29/2016, 16:40. FINDINGS: Surgical changes and devices: Stable position of ETT and nasogastric tubes. Lungs and pleura: No pleural effusions or pneumothorax. Lungs are clear. Mediastinum: Mediastinal contours appear normal. Heart size is normal. Bones and chest wall: No suspicious bony lesions. Overlying soft tissues appear unremarkable. IMPRESSION: No acute cardiopulmonary disease. Dictated by: Tristan Grimaldo RRA Interpreted: Valorie Torres MD on 03/30/2016 at 9:33 Transcribed by: USMAN on 03/30/2016 at 9:33 Approved by: Valorie Torres MD, PhD on 03/30/2016 at 16:43
--- NOTE | 2016-03-30 11:34 | NUR ---
NUTRITION ASSESSMENT: ASSESS: Pt is a 45yo F admitted to CCU for respiratory distress. She is currently intubated and NPO. PMHX: Asthma, polysubstance abuse LABS: Reviewed. Glu 183, Ca 7.4, Alb 3.4, A1C pending MEDS: Reviewed. Solu Medrol, fentanyl, propofol currently running at ~10ml/hr to provide 264kcal/day GI: 0 BM SKIN: chalo 10, wound consult pending CURRENT WTS: 61.1kg, BMI 23.1kg/m2 DIET: NPO EST. NEEDS: vent Kcals: 1225-1530kcal/day (20-25kcal/kg) Pro: 95-110g/day (1.5-1.8g/kg) Fluid: 1530-1835ml/day (25-30cc/kg) NUTRITION DIAGNOSIS: 1.) Inadequate oral intake related to decreased ability to consume sufficient energy as evidenced by current NPO status. NUTRITION INTERVENTION: 1.) Will continue to monitor NPO/vent status. If pt continues to be NPO, recommend start nutrition support 2.) Recommend start TF of Vital 1.5 @ 10ml/hr and monitor tolerance. Once tolerated, advance by 10ml q 4 hrs until reach goal rate of 40ml/hr to provide 1320kcal (1584kcal w/propofol) and 59g/day (100% kcal and 62% pro needs). Flush 40ml q 4 hrs. If IVF stopped, flush 130ml q 3 hrs. 3.) Once at goal rate, recommend add 1 packet prosource TID to better meet pro needs. 4.) Adjust goal rate based on proprofol rate MONITOR / EVAL: NPO/vent, TF?, labs, wt, GI, POC, nutrition status. Will continue to monitor per high nutrition risk guidelines.
[2016-03-30] MEDS: Lactated Ringer's 1,000 ML IV SCH (11:45)
--- NOTE | 2016-03-30 12:53 | DRSVH ---
[facility] [address] [place] [address] Echocardiogram Report Name: OSMANY MARSHALL JStudy Date: 03/30/2016 Height: 64 in Hospital Exam Location: [facility] Weight: 135 lb Gender: Female BSA: 1.7 m2 : 1970 Age: 45 yrs BP: 102/63 mmHg Reason For Study: Respiratory Arrest Ordering Physician: Performed By: Evelyn Genao Referring Physician: Dr. Lucero Villarreal Interpretation Summary Left ventricular systolic function is moderately reduced with the ejection fraction estimated to be 40-45% with moderate global hypokinesis with severe hypokinesis in the mid septal and mid inferior and inferoposterior segments. This could be an appearance consistent with an atypical stress related cardiomyopathy but clinical correlation is needed. Diastolic function could not be accurately assessed due to tachycardia. The right ventricle grossly appears normal in size with probable normal systolic function. Pulmonary artery pressures cannot be estimated because of the lack of a measurable TR jet velocity but the IVC suggests a high right atrial pressure of 15 mm Hg. Both atria are grossly normal in size. There is no obvious significant valvular heart disease. The patient was in sinus tachycardia with heart rates between 115-120 bpm during the exam. Procedure: A two-dimensional transthoracic echocardiogram with color flow and Doppler was performed. The study quality was technically good. There is no prior echocardiogram noted for this patient. The patient was in sinus tachycardia with heart rates between 115-120 bpm during the exam. Left Ventricle: The left ventricle is normal in size. There is normal left ventricular wall thickness. Left ventricular systolic function is moderately reduced. The ejection fraction is estimated to be 40-45%. There is moderate global hypokinesis of the left ventricle. This is worse in the mid septal and mid inferior and inferoposterior segments. Diastolic function could not be accurately assessed due to tachycardia. Right Ventricle: The right ventricle grossly appears normal in size with probable normal systolic function. Atria: Both atria are normal in size. The interatrial septum is intact with no evidence for an atrial septal defect. Mitral Valve: The mitral valve is grossly normal. There is no mitral regurgitation. Aortic Valve: The aortic valve is not well visualized. The aortic valve is grossly normal. The aortic valve opens well. There is no hemodynamically significant valvular aortic stenosis. No aortic regurgitation is present. Tricuspid Valve: The tricuspid valve is normal in structure and function. No tricuspid regurgitation. Pulmonary artery pressures cannot be estimated because of the lack of a measurable TR jet velocity. Pulmonic Valve: The pulmonic valve is not well visualized. There is no significant valvular heart disease. Great Vessels: The aortic root is normal size. The ascending aorta is normal in size. The IVC is dilated (diameter is greater than 2.1 cm) and it collapses less than 50% with a sniff. This suggests a high right atrial pressure of 15 mm Hg. Pericardium/ Pleura There is no pericardial effusion. There is no pleural effusion. MMode/2D Measurements & Calculations LVIDd: 4.6 cm LA dimension: 2.6 cm Aortic Jxn EDV(MOD-sp2) LVIDs: 3.4 cm IVC diam: 2.2 cm : 47.6 ml FS: 26.9 % asc Aorta IVSd: 0.73 cm Diam: 3.0 cm LVPWd: 0.77 cm LV allen. diameter/BSA LV sys. diameter/BSA (cm/m^2): 2.8 (cm/m^2): 2.0 Doppler Measurements & Calculations Ao V2 max MV E max constantin MV E/A: 0.59 MV dec time : 119.6 cm/sec : 52.9 cm/sec Med Peak E' Constantin : 0.10 sec Ao max P.7 mmHg MV A max constantin Ao mean P.3 mmHg : 89.0 cm/sec E/E' med: 10.1 MV P1/2t: 30.5 msecLat Peak E' Constantin E/E' lat: 5.8 MV P1/2t max constantin Ao V2 mean : 87.2 cm/sec Ao V2 VTI: 18.0 cm MVA(P1/2t): 7.2 cm2 Reading Physician:12:52 PM
--- NOTE | 2016-03-30 13:20 | NUR ---
Respiratory/Cardiac Pt LS diminished with inspiratory wheeze, and long expiratory phase with wheeze. Vent settings: FiO2 40%, PEEP 10, Vt 500, Rate 14; SpO2 high 90s. Solu-Medrol IVP scheduled. in to visit pt, pt became very aggitated, increased propofol from 45mcg/kg/min to 50mcg/kg/min, Fent at 200mcg/hr. RASS -[address] 1-teens, BPs 90s-100s/50s. Turned Q2H.
--- NOTE | 2016-03-30 14:04 | PCM.PNMED ---
Subjective Date of Service Mar 30, 2016 Subjective pt was vented, had possible autopeep, vent management discussed with overnight increased the rate, respiratory acidosis improved. AM Ppeak 40, Pplat20 40%, 14, 500, peep10 Exam Vital Signs Vital Sign - Last Date Time Temp Pulse Resp B/P Pulse Ox O2 Delivery O2 Flow Rate FiO2 03/30/16 11:30 Ventilator 03/30/16 11:30 37.0 115 14 101/56 98 40 Intake and Output 03/29/16 03/29/16 03/30/16 Cumulative From/Thru 15:00 23:00 07:00 03/29/16 16:49 - 03/30/16 06:15 Intake Total 1050 ml 3550 ml 4600 ml Output Total 750 ml 750 ml Balance 1050 ml 2800 ml 3850 ml Intake Oral 0 ml 0 ml IV Total 1050 ml 3550 ml 4600 ml Output Urine Total 700 ml 700 ml Gastric Drainage Total 50 ml 50 ml # Bowel Movements 0 0 Exam vented, sedated, no JVD, MMM, no LAD RRR, nl s1, s2 no mrg CTAB, no w,c S,ND,NT,normoactive BS+ warm, no edema, pulses 2/2 IVs and Medications Medications Reviewed: Medications were reviewed in detail Lab and Diagnostics Result Diagram: 03/30/16 0450 03/30/16 0450 X-Rays, CTs and MRIs X-RAY CHEST ONE VIEW, PORTABLE 03/29 IMPRESSION: No acute process. Dictated by: Karan Ramsey M.D. on 03/29/2016 at 17:07 Approved by: Karan Ramsey M.D. on 03/29/2016 at 17:07 Assessment & Plan Leanna Samano is a 45 year old female who was brought to the emergency department by EMS for respiratory distress 1. Acute Hypoxic Respiratory Failure due to Asthma exacerbation. Present on admission Possible Viral infection triggering Asthma exacerbation. Possible she patient may be taking illegal drugs that may be contributing to her current demise. -appreciate Pulmonology management - continue Ventilator support - continue Bronchodilators - systemic steroids: Solu-Medrol 80 mg IV q 8 hours - Propofol and Fentanyl drips 2. Lactic acidosis. Present on admission Due to tissue hypoxia - trending levels till normal 3. Elevated troponin due to demand ischemia. Present on admission, NO prior history of Coronary disease. - FU TTE 4. Polysubstance Abuse Urine drug screen positive for amphetamine and cannabinoids. May be at risk for endocarditis. Nurse reporting possible track phillip on arms - Blood cultures send. if positive then echo will be pursued - Vancomycin IV, empirically 5. Nicotine Dependence - will discuss cessation when patient is extubated - Acetaminophen as needed for mild pain/fever/headache - Bowel regimen as needed - Antiemetic as needed dispo: pending CCU course, vented tube feed dvt ppx HSQ FC . VTE Mechanical Devices: Intermittant Pneumatic CD Resuscitation Status: CPR: Attempt Resuscitation Time spent 35min Yo Chun MD Mar 30, 2016 14:04
--- NOTE | 2016-03-30 17:12 | NUR ---
Social Work: Screen D: Per EMR review, pt is a 45 year old female admitted for acute respiratory failure. Pt is Blake GRIFFITHS. PCP is Carlton Villarreal MD. NOK is Ney and Izaiah Montilla, snow. Readmit score is not entered at this time. Advanced directives not on file. Pt lives in [place] with her spouse. She has a history of meth and cocaine use. Spouse states there is recent cocaine use but not meth. Pt will require CD assessment when appropriate. Pt continues to be intubated and sedated. A: Pt who was previously I. P: FIELD ENGINEER to continue to follow and complete CD assessment when appropriate; DCP pending clinical course. HEBER Langford
[2016-03-30] MEDS ORDERED: LORazepam 100 mg/100 mL NS 100 MG in IV Premix 100 EACH IV SCH (18:22)
--- NOTE | 2016-03-30 19:16 | DRSVH ---
PROCEDURE: CT ANGIO CHEST PULMONARY EMBOLISM ([id number]) INDICATIONS: SOB, VENT TECHNIQUE: After the administration of intravenous contrast, 2 mm thick sections acquired from the pulmonary api bridgette to the posterior costophrenic angles. 3-dimensional maximum intensity projection (MIP) coronal a nd sagittal reformats were then acquired through the thorax. For radiation dose reduction, the follo wing was used: automated exposure control, adjustment of mA and/or kV according to patient size. COMPARISON: [facility], CR, XR CHEST 1VW (PORTABLE), 03/30/2016, 1:45. FINDINGS: Image quality: Excellent. Pulmonary arteries: Pulmonary arteries are normal in size, and demonstrate no intraluminal filling d efects to suggest central pulmonary embolism. Lungs and pleura: Lungs are clear. No pleural effusions or pneumothorax. Central and peripheral ai rways are patent. Mediastinum: There is an endotracheal tube above latasha. A nasogastric tube is noted with the tip in stomach. Heart size is normal, without pericardial effusion. No mediastinal or hilar adenopathy. T horacic aorta is normal in caliber and enhancement. Esophagus is normal in caliber, without hiatal h ernia. Bones and chest wall: No suspicious bony lesions. Ribs and thoracic spine appear intact throughout. Thyroid gland is normal. No axillary or supraclavicular adenopathy. Abdomen: Visualized upper abdominal solid organs appear normal in the early arterial phase of enhanc ement. IMPRESSION: No evidence for acute pulmonary embolism. Dictated by: Jerrell Lake M.D. on 03/30/2016 at 19:14 Approved by: Jerrell Lake M.D. on 03/30/2016 at 19:15
--- NOTE | 2016-03-30 19:45 | PCM.CHPMED ---
Subjective Date of Service: Mar 30, 2016 Primary Physician: Admitting Physician: Kiran Whitman MD Primary Care Physician: Carlton Villarreal MD Attending Physician: Kiran Whitman MD Chief Complaint: Chief Complaint: ICU/Pulmonary consult: This is a 45 year old female with history significant for asthma, tobacco abuse , and polysubstance abuse who presented to [facility] on 03/29/2016 via EMS in respiratory distress after being intubated in the field. Patient is unable to answer questions as she is currently intubated and sedated. The provided the history. The patient has had progressively worsening shortness of breath over the last month which acutely worsened 24 hours ago. Her states that the illness began 1 month ago when her daughter became ill with similar symptoms. The daughter recovered after several days of URI symptoms. The reports that his had increased congestion, cough that was nonproductive, and wheezing. She was treating herself with her husbands albuterol, Atrovent, and steroids (as he is also an asthmatic). He stated on the morning of 03/29 she began to feel better but then suddenly became very short of breath. There was some complaint of chest pain as well. The patient has a long history of methamphetamine, cocaine, and alcohol abuse and the patients states she has not used illegal substances in over two years. Her urine tox screen was positive for methamphetamine, benzodiazpines, and cannabinoids. The patient currently smokes one pack of cigarettes per day. She previously worked in a [employer] but no longer is employed. No recent travel reported by the . Today she is intubated and sedated and therefore ROS is not available. PMH Past Medical History Asthma Bedside Blood Glucose: 119 Surgical History Unknown Home Medications Atrovent, albuterol, steroids (unknown type) Allergies: Coded Allergies: No Known Allergies (Unverified , 03/29/16) Family History Family History Unknown Social History Hx Alcohol Use: NoAlcoholic Drinks Per Day: hard liquor historyHx Substance Use: Yes ( states she previously used Meth)Hx Tobacco Use: Yes Smoking Status: Current Every Day Smoker Living Arrangement: with Family (with her ) Exam Vital Signs Vital Sign - Last Date Time Temp Pulse Resp B/P Pulse Ox O2 Delivery O2 Flow Rate FiO2 03/30/16 07:39 37.6 117 14 107/56 99 Mechanical Ventilator 40 Intake and Output 12/28/16 12/28/16 12/29/16 Cumulative From/Thru 15:00 23:00 07:00 03/29/16 16:49 - 03/30/16 06:15 Intake Total 1050 ml 3550 ml 4600 ml Output Total 750 ml 750 ml Balance 1050 ml 2800 ml 3850 ml Intake Oral 0 ml 0 ml IV Total 1050 ml 3550 ml 4600 ml Output Urine Total 700 ml 700 ml Gastric Drainage Total 50 ml 50 ml # Bowel Movements 0 0 Additional Information: General: intubated and sedated HEENT: Normocephalic, atraumatic. External ears without defect. Neck: No lymphadenopathy or thyromegaly. Cardiovascular: Regular rate and rhythm with no murmurs, rubs, or gallops appreciated Pulmonary: Coarse breath sounds, wheezing bilaterally. Abdomen: Bowel tones present. Soft, nondistended. No hepatosplenomegaly or masses appreciated. Extremities: No clubbing, cyanosis, edema, or lymphadenopathy appreciated. Skin: Normal temperature, turgor, and texture; no rash or subcutaneous nodules appreciated. Minor wounds noted on lower extremities Neurological: Patient is sedated. She is not responding to commands currently. Psychiatric: Intubated and sedated. Lab and Diagnostics Result Diagram: 03/30/16 0450 03/30/16 0450 X-Rays, CTs and MRIs Chest x-ray 03/30/2016: IMPRESSION: No acute cardiopulmonary disease. Dictated by: Tristan FATIMA Interpreted: Valorie Torres MD on 03/30/2016 at 9:33 Assessment & Plan Assessment This is a 45 year old female with history of asthma and polysubstance abuse who presented in acute respiratory failure: Acute respiratory distress likely secondary to asthma exacerbation and rhinovirus infection: -Current vent stettings: FiO2 40, PEEP 10, RR 15, Vt 500. -Positive for rhinovirus. -Sedation with fentnayl and proprofol. -History of severe asthma and currently using husbands inhalers as she has no PCP. -Albuterol and ipratropium ordered. -Solu-medrol 125mg q8h. Lactic acidosis: -Currently lactic acid is 1.2. This is after 3.5 liters of NS. -Continue fluids with lactated ringers. Elevated troponin: -.Troponins: 053 --> .234 --> .122 -Echocardiogram ordered. -EKG ordered. Polysubstance abuse: -Tox screen positive for methamphetamine, benzodiazepines, and cannabinoids. -Continue to watch for signs of withdrawal. DVT prophylaxis with subq heparin Problems: VTE Mechanical Devices: Intermittant Pneumatic CD Resuscitation Status: CPR: Attempt Resuscitation Attending Statement The patient was seen and examined together with Dr. Lara on 03/30/2017 and I agree with the history, exam and plan as outlined in the note above. Yuri Lara DO Mar 30, 2016 12:10 Eh Mehta MD Apr 27, 2016 10:32
[2016-03-30] MEDS: LORazepam Inj 100 MG in 0.9% Sodium Chloride 100 ML IV SCH (19:54)
[2016-03-31] VITALS (11 sets, daily range): BP systolic 96–116; BP diastolic 54–64; PULSE 97–115; RESP 14; O2SAT 96–98
[2016-03-31] MEDS: MethylprednisoLONE Sodium Succinate 62.5 mg/mL 2 mL Inj IVPUSH SCH ×3 (00:53→17:22)
[2016-03-31] MEDS: Chlorhexidine 0.12% 15 mL Oral Solution MT SCH ×6 (00:53→20:17)
[2016-03-31] MEDS: Lactated Ringer's 1,000 ML IV SCH (00:53)
[2016-03-31] MEDS: Heparin 5,000 Unit/mL Inj SUBQ SCH ×3 (00:53→17:22)
[2016-03-31] MEDS ORDERED: 0.9% Sodium Chloride 500 ML IV ONE (01:10)
[2016-03-31] MEDS ORDERED: Heparin 25K Unit/500mL 0.45 NS 25,000 UNIT in IV Premix 1 EACH IV SCH (01:10)
[2016-03-31] MEDS ORDERED: Heparin Protocol Boluses IVPUSH PRN (01:15)
[2016-03-31] MEDS: Insulin Human REGular 300 Unit/3 mL Inj - Low SUBQ SCH ×4 (02:30→20:18)
[2016-03-31 04:05] LABS: BASOPHILS % (AUTO) 0 % (0-3); EOSINOPHILS % (AUTO) 0 % (0-5); MONOCYTES % (AUTO) 3.6 % (4-12); Mean Corpuscular Hemoglobin 26.9 pg (27.0-35.0); Mean Corpuscular Volume 86.7 fL (81-100); NEUTROPHILS % (AUTO) 94.1 % (40-74); Platelet Count 269 bil/L (150-400)
[2016-03-31 04:24] LABS: Magnesium 2.2 mg/dL (1.6-2.6); Phosphorus 2.8 mg/dL (2.5-4.9)
[2016-03-31] MEDS: Ipratropium 0.02% 0.5 mg/2.5 mL Inhalation Solution NEB SCH ×2 (05:00→07:46)
[2016-03-31] MEDS: Albuterol 2.5 mg/3 mL Inhalation Solution NEB SCH ×3 (05:00→11:10)
--- NOTE | 2016-03-31 05:47 | ABG ---
DateTimeAnalyzed 05:42:00 -_ pH ____7.365 - 7.350 7.450 pCO2 ___47.9__ -mmHg 35.0 45.0 pO2 125 -mmHg 69.0 116 HCO3- ___26.7__ -mmol/L 22.0 26.0 ABE ____1.4__ -mmol/L -2.0 2.0 tHb ___11.9__ -g/dL O2Hb ___97.0__ -% COHb ____0.5__ -% MetHb ____1.0__ -% sO2 ___98.5__ -% FIO2 ___40.0__ -% PEEP ___10.0__ -cmH2O Set_RR ___14.0__ -b/min Vt __500.0__ -L Drawn By MK - Date/Time Notified____ 05:47:00 -_ Oxygen Device 1 VENTILATOR - Notified By MK - B 763 -mmHg tO2 ___16.5__ -Vol% Jamir test _Positive -
[2016-03-31] MEDS: Albuterol 0.5% (5mg/mL) 20 mL Inhalation Solution NEB PRN (07:49)
[2016-03-31] MEDS ORDERED: Vancomycin Serum Trough XX ONE ×2 (08:00→09:30)
[2016-03-31] MEDS: Propofol Inj 1,000,000 MCG in IV Premix 1 EACH IV SCH (08:00)
[2016-03-31] MEDS ORDERED: Vancomycin Dose per Pharmacist XX SCH (08:30)
--- NOTE | 2016-03-31 10:13 | DRSVH ---
PROCEDURE: X-RAY CHEST ONE VIEW, PORTABLE ([id number]) INDICATIONS: Vent TECHNIQUE: One view of the chest was acquired. COMPARISON: None. FINDINGS: Surgical changes and devices: Stable position endotracheal and nasogastric tubes. Lungs and pleura: No pleural effusions or pneumothorax. Lungs are clear. Mediastinum: Mediastinal contours appear normal. Heart size is normal. Bones and chest wall: No suspicious bony lesions. Overlying soft tissues appear unremarkable. IMPRESSION: Stable chest. Dictated by: Tristan Grimaldo [facility] Interpreted: Valorie Torres MD on 03/31/2016 at 10:12 Transcribed by: USMAN on 03/31/2016 at 10:12 Approved by: Valorie Torres MD, PhD on 03/31/2016 at 16:12
[2016-03-31] MEDS ORDERED: Albuterol-Ipratropium 3 mL Inhalation Solution NEB PRN (11:15)
--- NOTE | 2016-03-31 13:51 | NUR ---
NUTRITION FOLLOW-UP: ASSESS: Pt is a 45 YO female admitted to CCU with respiratory distress, status post intubation in the field, likely secondary to asthma exacerbation and rhinovirus infection. She remains intubated in CCU. Orders received to initiate trophic enteral feeding. PMHX: Severe asthma, polysubstance abuse, smoking. LABS: Reviewed. Cr 0.51, Glu 131, A1c 5.7, Alb 3.3. MEDS: Reviewed. Solu-medrol, insulin, ativan, fentanyl. Propofol currently running at ~4 ml/hr to provide 106 kcal/day. GI: 0 BM SKIN: Alireza 10. Wound consult initiated; evaluation pending. WT: 61.1 kg, BMI 23.1kg/m2. Admit weight: 61.1 kg. DIET: NPO EST. NEEDS: vent Kcals: 1225-1530kcal/day (20-25kcal/kg) Pro: 95-110g/day (1.5-1.8g/kg) Fluid: 1530-1835ml/day (25-30cc/kg) NUTRITION DIAGNOSIS: 1) Inadequate oral intake related to decreased ability to consume sufficient energy as evidenced by current NPO status - PERSISTS. NUTRITION INTERVENTION: 1) Recommend Vital 1.5 @ 10ml/hr and monitor tolerance. Once tolerated, advance by 5 ml q 4 hrs until reach goal rate of 40ml/hr to provide 1320kcal (1426 kcal w/propofol) and 59 g protein/day (100% kcal and 62% pro needs). Flush 40ml q 4 hrs. If IVF stopped, flush 130ml q 3 hrs. 3) Once at goal rate, recommend add 1 packet prosource TID to better meet pro needs. 4) Adjust goal rate based on proprofol rate MONITOR / EVAL: NPO/vent status, enteral feeding tolerance, labs, wt, GI, POC, nutrition status. Will continue to monitor per high nutrition risk guidelines.
--- NOTE | 2016-03-31 15:43 | PCM.PNMED ---
Subjective Date of Service Mar 31, 2016 Subjective Patient is intubated and sedated. No subjective or ROS obtainable. Exam Vital Signs Vital Sign - Last Date Time Temp Pulse Resp B/P Pulse Ox O2 Delivery O2 Flow Rate FiO2 03/31/16 12:30 101 110/57 97 40 03/31/16 12:30 36.6 14 Mechanical Ventilator Intake and Output 03/30/16 03/30/16 03/31/16 Cumulative From/Thru 15:01 23:01 07:01 03/29/16 16:49 - 03/31/16 06:03 Intake Total 1585 ml 1286 ml 7471 ml Output Total 910 ml 810 ml 2470 ml Balance 675 ml 476 ml 5001 ml Intake Oral 0 ml IV Total 1585 ml 1286 ml 7471 ml Output Urine Total 720 ml 650 ml 2070 ml Gastric Drainage Total 190 ml 160 ml 400 ml # Bowel Movements 0 0 0 Exam Intubated. Sedated. Normal skull. Anicteric sclera, conjugate gaze. Lungs clear\ CV RRR, No murmur Abdomen soft, ND No edema. IVs and Medications Medications Reviewed: Medications were reviewed in detail Lab and Diagnostics Result Diagram: 03/31/16 0335 03/31/16 0335 X-Rays, CTs and MRIs X-RAY CHEST ONE VIEW, PORTABLE 03/29 IMPRESSION: No acute process. Dictated by: Karan Ramsey M.D. on 03/29/2016 at 17:07 Approved by: Karan Ramsey M.D. on 03/29/2016 at 17:07 Assessment & Plan Leanna Samano is a 45 year old female who was brought to the emergency department by EMS for respiratory distress 1. Acute Hypoxic Respiratory Failure due to Asthma exacerbation. Present on admission Possible Viral infection triggering Asthma exacerbation. Possible she patient may be taking illegal drugs that may be contributing to her current demise. -appreciate Pulmonology management - continue Ventilator support - continue Bronchodilators - systemic steroids: Solu-Medrol 80 mg IV q 8 hours - Propofol and Fentanyl drips. Will lighten up on sedation over next 24 hours and pursue BT. 2. Lactic acidosis. Present on admission, resolved. Due to tissue hypoxia - trending levels till normal 3. Elevated troponin due to demand ischemia. Present on admission, NO prior history of Coronary disease. No further work up. - FU Tele 4. Polysubstance Abuse, POA Urine drug screen positive for amphetamine and cannabinoids. May be at risk for endocarditis. Nurse reporting possible track phillip on arms - Blood cultures send. if positive then echo will be pursued - Vancomycin IV, empirically 5. Nicotine Dependence, POA - will discuss cessation when patient is extubated - Acetaminophen as needed for mild pain/fever/headache - Bowel regimen as needed - Antiemetic as needed dispo: pending CCU course, vented tube feed dvt ppx HSQ FC . Pain Evaluation: Adequate Pain Control VTE Mechanical Devices: Intermittant Pneumatic CD Resuscitation Status: CPR: Attempt Resuscitation Time spent 35 minutes Jamir Rodrigues MD Mar 31, 2016 15:43
[2016-03-31] MEDS ORDERED: 0.9% Sodium Chloride 250 ML ONE (15:46)
[2016-03-31] MEDS: Albuterol-Ipratropium 3 mL Inhalation Solution NEB SCH ×2 (15:52→20:26)
[2016-03-31] MEDS: Dextrose 5% 0.45% NaCl 1,000 ML IV SCH (17:20)
--- NOTE | 2016-03-31 17:58 | PCM.PNMED ---
Subjective Date of Service Mar 31, 2016 Subjective This is a 45 year old female with history of polysubstance abuse and asthma who presented to the hospital after being intubated in the field due to acute respiratory failure. She had initially developed URI symptoms for several weeks. She is positive for rhinovirus. Urine tox positive for methamphetamines , benzodiazepines, and cannabinoids. History of recent cocaine use and distant alcoholism. The patient remains intubated and sedated. No overnight events. ROS was not able to be obtained due to intubation and sedation. Exam Vital Signs Vital Sign - Last Date Time Temp Pulse Resp B/P Pulse Ox O2 Delivery O2 Flow Rate FiO2 03/31/16 08:43 Ventilator 03/31/16 08:43 36.4 105 14 98/56 98 40 Intake and Output 03/30/16 03/30/16 03/31/16 Cumulative From/Thru 15:00 23:00 07:00 03/29/16 16:49 - 03/31/16 06:03 Intake Total 1585 ml 1286 ml 7471 ml Output Total 910 ml 810 ml 2470 ml Balance 675 ml 476 ml 5001 ml Intake Oral 0 ml IV Total 1585 ml 1286 ml 7471 ml Output Urine Total 720 ml 650 ml 2070 ml Gastric Drainage Total 190 ml 160 ml 400 ml # Bowel Movements 0 0 0 Exam General: intubated and sedated HEENT: Normocephalic, atraumatic. External ears without defect. Neck: No lymphadenopathy or thyromegaly. Cardiovascular: Regular rate and rhythm with no murmurs, rubs, or gallops appreciated Pulmonary: Coarse breath sounds, wheezing bilaterally (this is improved since yesterday).. Abdomen: Bowel tones present. Soft, nondistended. No hepatosplenomegaly or masses appreciated. Extremities: No clubbing, cyanosis, edema, or lymphadenopathy appreciated. Skin: Normal temperature, turgor, and texture; no rash or subcutaneous nodules appreciated. Minor wounds noted on lower extremities Neurological: Patient is sedated. She is not responding to commands currently. Psychiatric: Intubated and sedated. Lab and Diagnostics Result Diagram: 03/31/1633403/31/16334 X-Rays, CTs and MRIs X-RAY CHEST ONE VIEW, PORTABLE 03/29 IMPRESSION: No acute process. Dictated by: Karan Ramsey M.D. on 03/29/2016 at 17:07 Approved by: Karan Ramsey M.D. on 03/29/2016 at 17:07 03/30/2016 CT chest PE protocol: IMPRESSION: No evidence for acute pulmonary embolism. Dictated by: Jerrell Lake M.D. on 03/30/2016 at 19:14 Assessment & Plan This is a 45 year old female with history of asthma and polysubstance abuse who presented in acute respiratory failure: Acute respiratory distress likely secondary to asthma exacerbation and rhinovirus infection: -Current vent stettings: FiO2 40, PEEP 10, RR 15, Vt 500. -Positive for rhinovirus. -Sedation with fentnayl and proprofol. -History of severe asthma and currently using husbands inhalers as she has no PCP. -Duonebs q4h scheduled. -Solu-medrol 60mg q8h. -Tube feeds started. Positive blood culture, probable coag negative staph: -Vancomycin has been discontinued. Lactic acidosis, resolved: -Lactic acid is 1.2. -Lactated ringers discontinued as patient is 5 liters up. Elevated troponin: -.Troponins: 053 --> .234 --> .122 -Echocardiogram showed EF of 40-45% and severe hypokinesis globally. Polysubstance abuse: -Tox screen positive for methamphetamine, benzodiazepines, and cannabinoids. -Continue to watch for signs of withdrawal. DVT prophylaxis with subq heparin GI prophylaxis with famotidine. VTE Mechanical Devices: Intermittant Pneumatic CD Resuscitation Status: CPR: Attempt Resuscitation Attending Statement The patient was seen and examined together with Dr. Lara on 03/31/2017 and I agree with the history, exam and plan as outlined in the note above. Yuri Lara DO Mar 31, 2016 10:46 Eh Mehta MD Apr 27, 2016 10:50
--- NOTE | 2016-03-31 18:19 | NUR ---
Wound Care Pt sen with RN no skin issues at this time.
--- NOTE | 2016-03-31 19:06 | NUR ---
Respiratory/Cardiac/Sedation Pt LS improved from yesterday, diminished with BUL squeek and, diffuse wheeze, but more audible air movement. Vent settings: FiO2 40%, PEEP 10, Vt 500, Rate 14; SpO2 high 90s. Solu-Medrol IVP scheduled. Tele SR 90s to ST low 100s. Pt RASS -2 to -3 with propofol 5mcg/kg/min, Ativan 2mg/hr, Fent 100mcg/hr. TF initiated at 10cc/h at 1615, no residual noted.
[2016-03-31] MEDS: fentaNYL 2,500 mCg/250 mL 2,500 MCG in IV Premix 1 EACH IV PRN (19:23)
[2016-03-31] MEDS: Famotidine Inj 20 MG in IV Premix 1 EACH IV SCH (20:17)
[2016-03-31] MEDS: LORazepam Inj 100 MG in 0.9% Sodium Chloride 100 ML IV SCH (20:17)
[2016-04-01] VITALS (15 sets, daily range): BP systolic 103–138; BP diastolic 6–78; PULSE 86–100; RESP 12–14; O2SAT 94–98
[2016-04-01] MEDS: Albuterol-Ipratropium 3 mL Inhalation Solution NEB SCH ×7 (00:40→23:43)
[2016-04-01] MEDS: Chlorhexidine 0.12% 15 mL Oral Solution MT SCH ×6 (01:06→20:08)
[2016-04-01] MEDS: MethylprednisoLONE Sodium Succinate 62.5 mg/mL 2 mL Inj IVPUSH SCH ×4 (01:06→16:40)
[2016-04-01] MEDS: Heparin 5,000 Unit/mL Inj SUBQ SCH ×3 (01:06→16:43)
[2016-04-01] MEDS: Propofol Inj 1,000,000 MCG in IV Premix 1 EACH IV SCH ×2 (02:21→16:56)
[2016-04-01] MEDS: Insulin Human REGular 300 Unit/3 mL Inj - Low SUBQ SCH ×4 (02:30→20:08)
[2016-04-01 04:03] LABS: BASOPHILS % (AUTO) 0 % (0-3); EOSINOPHILS % (AUTO) 0 % (0-5); MONOCYTES % (AUTO) 5.6 % (4-12); Mean Corpuscular Volume 85.4 fL (81-100); NEUTROPHILS % (AUTO) 90.4 % (40-74); Platelet Count 271 bil/L (150-400)
[2016-04-01 04:26] LABS: Magnesium 2.2 mg/dL (1.6-2.6); Phosphorus 3.3 mg/dL (2.5-4.9)
[2016-04-01] MEDS: Dextrose 5% 0.45% NaCl 1,000 ML IV SCH (04:30)
[2016-04-01] MEDS: Polyethylene Glycol (PEG) 17 Gm Powder PO PRN (08:08)
[2016-04-01] MEDS: Famotidine Inj 20 MG in IV Premix 1 EACH IV SCH ×2 (08:08→20:08)
--- NOTE | 2016-04-01 08:52 | DRSVH ---
PROCEDURE: X-RAY CHEST ONE VIEW, PORTABLE ([id number]) INDICATIONS: 45-year-old female on ventilator. TECHNIQUE: One view of the chest was acquired. COMPARISON: [facility], CR, XR CHEST 1VW (PORTABLE), 03/31/2016, 5:04. [facility], CR, XR CHEST 1VW (PORTABLE), 03/30/2016, 1:45. [facility], CR, XR CHEST 1VW (POR TABLE), 03/29/2016, 16:40. FINDINGS: Surgical changes and devices: Endotracheal tube and nasogastric tube remain in expected positions. Lungs and pleura: No pleural effusions or pneumothorax. Lungs are clear. Mediastinum: Mediastinal contours appear normal. Heart size is normal. Bones and chest wall: No suspicious bony lesions. Overlying soft tissues appear unremarkable. IMPRESSION: No acute cardiopulmonary disease. Endotracheal tube is in expected position. Dictated by: Kristopher Iglesias M.D. on 04/01/2016 at 8:51 Approved by: Kristopher Iglesias M.D. on 04/01/2016 at 8:51
--- NOTE | 2016-04-01 10:24 | NUR ---
NUTRITION FOLLOW-UP: ASSESS: 45 YO female admitted to CCU with respiratory distress, status post intubation in the field, likely secondary to asthma exacerbation and rhinovirus infection. She remains intubated in CCU. Trophic enteral feeding well tolerated with no residuals. Plan for today is to move toward extubation, per Yellow Team. PMHX: Severe asthma, polysubstance abuse, smoking. LABS: Reviewed. Cr 0.50, Glu 123, A1c 5.7, Ca 8.2, AST 51, PAB 20. MEDS: Reviewed. Solu-medrol, insulin, ativan, fentanyl. Propofol currently running at ~2 ml/hr to provide 53 kcal/day. GI: No BM reported since admit x 3 D. SKIN: Alireza 10. Per Master Carpenter, there are no wound issues at this time. WT: 61.1 kg, BMI 23.1kg/m2. Admit weight: 61.1 kg. DIET: NPO x 3 D. ENTERAL FEEDING: Vital 1.5 @ 10 ml/hr. EST. NEEDS: vent Kcals: 1225-1530kcal/day (20-25kcal/kg) Pro: 95-110g/day (1.5-1.8g/kg) Fluid: 1530-1835ml/day (25-30cc/kg) NUTRITION DIAGNOSIS: 1) Inadequate oral intake related to decreased ability to consume sufficient energy as evidenced by current NPO status - PERSISTS. NUTRITION INTERVENTION: 1) Unless patient extubated today, recommend advance enteral feeding 5 ml every 4 hr. to goal 40 ml/hr, which would provide 1320kcal (1373 kcal w/propofol) and 59 g protein/day (100% kcal and 62% pro needs). Flush 40ml q 4 hrs. If IVF stopped, flush 130ml q 3 hrs. 3) Once at goal rate, recommend add 1 packet prosource TID to better meet pro needs. 4) Adjust goal rate based on proprofol rate MONITOR / EVAL: NPO/vent status, enteral feeding advance / tolerance, labs, wt, GI, POC, nutrition status. Will continue to monitor per high nutrition risk guidelines.
--- NOTE | 2016-04-01 11:03 | ABG ---
DateTimeAnalyzed 04:29:00 -_ pH ____7.393 - 7.350 7.450 pCO2 ___48.0__ -mmHg 35.0 45.0 pO2 ___91.9__ -mmHg 69.0 116 HCO3- ___28.6__ -mmol/L 22.0 26.0 ABE ____3.5__ -mmol/L -2.0 2.0 tHb ___12.2__ -g/dL O2Hb ___95.8__ -% COHb ____0.5__ -% MetHb ____0.9__ -% sO2 ___97.2__ -% FIO2 ___40.0__ -% PEEP ____8.0__ -cmH2O Set_RR ___14.0__ -b/min Vt __500.0__ -L Drawn By blf - Spontaneous_RR ___14.0__ -b/min Oxygen Device 1 VENTILATOR - B 763 -mmHg tO2 ___16.5__ -Vol% Jamir test _Positive -
[2016-04-01] MEDS ORDERED: Methylnaltrexone 12 mg/0.6 mL Inj SUBQ ONE (11:55)
--- NOTE | 2016-04-01 13:34 | PROG NOTE ---
[address] [address] PROGRESS NOTE PATIENT: OSMANY MARSHALL : 1970 MR#: [id number] ADMIT: 03/29/2016 JOB ID: [id number] DATE: 04/01/2016 PROBLEM LIST: 1. Status asthmaticus. 2. Hypoxemic hypercarbic respiratory failure, acute. 3. Polysubstance abuse. 4. Rhinovirus respiratory tract infection. SUBJECTIVE: None. OBJECTIVE: Temperature 36.3, pulse 78-90, respiratory rate 14 with ventilator set at 14, blood pressure 119/64, O2 sat on FiO2 of 40%, PEEP of 8, is 97%. I and O shows 2.2 L in, 1.6 L out. General appearance: Sedated on the ventilator. Chest: Fair breath sounds bilaterally. There is expiratory wheezes continuous throughout the entire phase of exhalation. There are some low-pitched crackles on the left. A little more discontinuous crackles on the right with tidal volume of 500, rate of 14, PEEP of 8, FiO2 of 0.4, peak inspiratory pressure 44, plateau 25. PEEP is set at 8, measured at 17. Heart: Regular rhythm. Heart tones seem normal. Abdomen soft. Nondistended. Quiet. Extremities: SCD in place. LABORATORY DATA: Shows a white count of 21,400 which is stable. Differential shows marked neutrophilia. Hemoglobin stable at 12.2. Platelet count 271,000. Sodium 141, potassium 5.2, chloride 104, CO2 is 27, BUN 17, creatinine 0.5. Lactic acid is 1.3, calcium 8.2 with an albumin of 3.1. Phosphorus 3.3, magnesium 2.2. Total bilirubin 0.2. AST mildly elevated at 51. ALT normal at 17. Alkaline phos normal at 60. ASSESSMENT: 1. The patient auto peeping secondary to significant worsening of her bronchospasm. Yesterday we were able to decrease the frequency of the nebulized bronchodilators as well as steroids. Will need to push the albuterol back up, continue using the antimuscarinic medications. Will also need to raise the steroids. Ventilator changes made by Respiratory Therapy. Ultimately settled on FiO2 of 0.4, tidal volume of 410, rate of 12, PEEP set at 10 to allow the patient to trigger the ventilator. Will need to obtain arterial blood gases to assess our degree of hypoventilation which I am sure is present at this point. 2. Lessening urine output. Having some increased problems with secretions. Will increase the fluids to not only help with kidney perfusion but also help to thin secretions which are increasing today. Somewhat peguero in color. Will send samples to the lab to get a handle on any superinfection the patient may be developing. 3. Sedation. Currently on fentanyl, low-dose of propofol as well as Ativan. The Ativan has been increased somewhat. Concern is over benzodiazepine withdrawal. Suspect that she will need increased sedation as we drop her tidal volume as this may give her the sensation of air hunger but the auto PEEP options are limited to the current settings. PLAN: 1. Morning bloods to consist of a CBC with diff, CMP, magnesium, phosphorus, and a procalcitonin. 2. Check a potassium later today given that we will be administering increasing doses of beta agonists. 3. Discontinue D5 half normal saline. 4. D5 normal saline at 125 mL an hour. 5. Albuterol 5 mg vial alternating with DuoNeb 1 vial by nebulizer q.2 h. 6. Increase methylprednisolone to 125 mg slow IV push q.8. Discussed the current findings with the patient's . Explained the worsening of bronchospasm and effects on lung, heart function and requiring her to remain intubated for the next few days. Time spent on critical care is 1 hour 20 minutes.
--- NOTE | 2016-04-01 14:10 | PCM.PNMED ---
Subjective Date of Service Apr 01, 2016 Subjective The patient is intubated and sedated. ROS and subjective are not obtainable. Exam Vital Signs Vital Sign - Last Date Time Temp Pulse Resp B/P Pulse Ox O2 Delivery O2 Flow Rate FiO2 04/01/16 08:30 36.3 90 14 119/64 97 Mechanical Ventilator 40 Intake and Output 03/31/16 03/31/16 04/01/16 Cumulative From/Thru 14:59 22:59 06:59 03/29/16 16:49 - 04/01/16 05:38 Intake Total 942 ml 1230 ml 9643 ml Output Total 800 ml 825 ml 4095 ml Balance 142 ml 405 ml 5548 ml Intake Oral 0 ml IV Total 901 ml 1115 ml 9487 ml Tube Feeding 11 ml 115 ml 126 ml Tube Irrigant 30 ml 30 ml Output Urine Total 525 ml 550 ml 3145 ml Gastric Drainage Total 275 ml 275 ml 950 ml # Bowel Movements 0 0 0 Exam Patient is intubated and sedated. Normal skull. Anicteric sclera. Oropharynx notable for endotracheal tube in place Lungs normal for expiratory and inspiratory wheezing. She has a fairly prolonged expiratory phase. She has been auto peaking overnight. Heart is regular without murmur Abdomen is soft nondistended. Extremities are free of edema Good pedal and radial pulses. Skin is free of rash or lesions IVs and Medications Medications Reviewed: Medications were reviewed in detail Lab and Diagnostics Result Diagram: 04/01/1632604/01/16326 X-Rays, CTs and MRIs X-RAY CHEST ONE VIEW, PORTABLE 03/29 IMPRESSION: No acute process. Dictated by: Karan Ramsey M.D. on 03/29/2016 at 17:07 Approved by: Karan Ramsey M.D. on 03/29/2016 at 17:07 03/30/2016 CT chest PE protocol: IMPRESSION: No evidence for acute pulmonary embolism. Dictated by: Jerrell Lake M.D. on 03/30/2016 at 19:14 Assessment & Plan This is a 45 year old female with history of asthma and polysubstance abuse who presented in acute respiratory failure: 1. Acute toxic respiratory failure, POA. Patient remains on the ventilator. He still struggles with her ongoing asthma which would prohibit her from weaning in the next day or 2. Pulmonology is following. Ventilation changes have been made today. We will keep her sedated and try to minimize auto PEEP with a higher level of PEEP. 2. Status asthmaticus. POA. We will continue methylprednisolone as well as her bronchodilators and a more frequent basis today. 3. Rhinovirus, URI. POA. Supportive care. 4. Positive blood culture, probable coag negative staph: This is felt to be a contaminant. -Vancomycin has been discontinued. 5. Lactic acidosis, airway. Resolved: -Lactic acid is 1.2. -Lactated ringers discontinued as patient is 5 liters up. 6. Elevated troponin on the POA.: -.Troponins: 053 --> .234 --> .122 -Echocardiogram showed EF of 40-45% (possible chronic systolic heart failure) and severe hypokinesis globally. No further workup at this time until she stabilizes. 7. Polysubstance abuse on the POA: -Tox screen positive for methamphetamine, benzodiazepines, and cannabinoids. -Continue to watch for signs of withdrawal, the Ativan has been titrated up as a drip to cover for possible benzodiazepine withdrawal symptoms.. DVT prophylaxis with subq heparin GI prophylaxis with famotidine. Pain Evaluation: Adequate Pain Control VTE Mechanical Devices: Intermittant Pneumatic CD Resuscitation Status: CPR: Attempt Resuscitation Time spent 35 minutes Jamir Rodrigues MD Apr 01, 2016 14:10
[2016-04-01] MEDS ORDERED: Albuterol-Ipratropium 3 mL Inhalation Solution NEB SCH (14:30)
[2016-04-01] MEDS: Dextrose 5% 0.9% NaCl 1,000 ML IV SCH (16:40)
[2016-04-01] MEDS: fentaNYL 2,500 mCg/250 mL 2,500 MCG in IV Premix 1 EACH IV PRN (16:41)
[2016-04-01] MEDS: Albuterol 0.5% (5mg/mL) 20 mL Inhalation Solution NEB SCH ×2 (17:25→22:17)
--- NOTE | 2016-04-01 17:48 | ABG ---
DateTimeAnalyzed 17:42:00 -_ pH ____7.381 - 7.350 7.450 pCO2 ___50.2__ -mmHg 35.0 45.0 pO2 ___89.7__ -mmHg 69.0 116 HCO3- ___29.1__ -mmol/L 22.0 26.0 ABE ____3.7__ -mmol/L -2.0 2.0 tHb ___11.9__ -g/dL O2Hb ___95.1__ -% COHb ____0.7__ -% MetHb ____1.0__ -% sO2 ___96.7__ -% FIO2 ___40.0__ -% PEEP ___10.0__ -cmH2O Vt __410.0__ -L Drawn By NB - Date/Time Notified____ 17:47:00 -_ Spontaneous_RR ___12.0__ -b/min Oxygen Device 1 VENTILATOR - Notified By NB - Notified Whom kENDREGAN - B 752 -mmHg tO2 ___16.0__ -Vol% Jamir test N/A -
--- NOTE | 2016-04-01 18:20 | NUR ---
Resp/sedation/Cardiac/GI Pt LS significantly worse than yesterday, very wheezy and tight, coarse. Vent settings adjusted: FiO2 40%, PEEP 10, Vt 380, Rate 12. Continuous capnography initiated late this afternoon. See MAR for neb changes. Moderate creamy peguero/white secretions from ETT, increased in amount from yesterday. Dr. Talavera increased Solu-Medrol to 125mg Q8H. Pt requiring increased sedation with lower Vt. Current sedation: Fentanyl 125mcg/hr, Propofol 5mcg/kg/min, Lorazepam 4mg/hr. MIVF changed to D5N at 120cc/hr. BG WNL. Tele SR 90s to ST low 100s, occasional PVCs. BP stable. TF residuals >60cc; TF rate 10cc/h with no scheduled flushes. Per Dr. Mehta, TF stopped and OGT placed to continuous wall suction. 120cc out OGT from [id number]. BT absent. Started on Relistor SQ this afternoon, and miralax was given this morning.
[2016-04-01] MEDS: LORazepam Inj 100 MG in 0.9% Sodium Chloride 50 ML IV SCH (19:29)
[2016-04-02] VITALS (11 sets, daily range): BP systolic 117–145; BP diastolic 60–80; PULSE 95–114; RESP 12–14; O2SAT 93–97
[2016-04-02] MEDS: Chlorhexidine 0.12% 15 mL Oral Solution MT SCH ×6 (00:09→20:23)
[2016-04-02] MEDS: Heparin 5,000 Unit/mL Inj SUBQ SCH ×3 (00:09→16:35)
[2016-04-02] MEDS: MethylprednisoLONE Sodium Succinate 62.5 mg/mL 2 mL Inj IVPUSH SCH ×3 (00:09→16:35)
[2016-04-02] MEDS: Dextrose 5% 0.9% NaCl 1,000 ML IV SCH ×4 (01:09→19:38)
[2016-04-02] MEDS: Albuterol 0.5% (5mg/mL) 20 mL Inhalation Solution NEB SCH ×6 (01:36→20:30)
[2016-04-02] MEDS: Insulin Human REGular 300 Unit/3 mL Inj - Low SUBQ SCH ×4 (03:18→20:25)
[2016-04-02] MEDS: Propofol Inj 1,000,000 MCG in IV Premix 1 EACH IV SCH ×2 (03:41→16:35)
[2016-04-02 03:54] LABS: BASOPHILS % (AUTO) 0.1 % (0-3); EOSINOPHILS % (AUTO) 0.1 % (0-5); MONOCYTES % (AUTO) 4.2 % (4-12); Mean Corpuscular Hemoglobin 26.6 pg (27.0-35.0); Mean Corpuscular Volume 86.1 fL (81-100); NEUTROPHILS % (AUTO) 89.9 % (40-74); Platelet Count 256 bil/L (150-400)
[2016-04-02] MEDS: Albuterol-Ipratropium 3 mL Inhalation Solution NEB SCH ×5 (04:14→21:53)
[2016-04-02 04:32] LABS: Magnesium 2.1 mg/dL (1.6-2.6); Phosphorus 3.3 mg/dL (2.5-4.9)
[2016-04-02] MEDS: Famotidine Inj 20 MG in IV Premix 1 EACH IV SCH ×2 (07:44→20:23)
[2016-04-02] MEDS: Polyethylene Glycol (PEG) 17 Gm Powder PO PRN (07:47)
--- NOTE | 2016-04-02 09:14 | PCM.PNMED ---
Subjective Date of Service Apr 02, 2016 Subjective patient is intubated and sedated. Review of systems and subjective are not obtainable Exam Vital Signs Vital Sign - Last Date Time Temp Pulse Resp B/P Pulse Ox O2 Delivery O2 Flow Rate FiO2 04/02/16 08:34 104 125/62 97 40 04/02/16 08:25 36.5 14 Mechanical Ventilator Intake and Output 04/01/16 04/01/16 04/02/16 Cumulative From/Thru 14:59 22:59 06:59 03/29/16 16:49 - 04/02/16 06:20 Intake Total 1782 ml 69520 ml Output Total 780 ml 4875 ml Balance 1002 ml 6550 ml Intake Oral 0 ml IV Total 1782 ml 96166 ml Tube Feeding 126 ml Tube Irrigant 30 ml Output Urine Total 700 ml 3845 ml Gastric Drainage Total 80 ml 1030 ml # Bowel Movements 0 0 Exam Sedated. The patient is intubated. Endotracheal tube is in place. She has 2 peripheral lines in the right arm. An NG tube is in place to suction. Head is normal. Symmetric pupils. Neck is supple Lungs are clear patient does have expiratory greater than inspiratory wheezing. There is no evidence of stacking. No extra breathing is noted over the vent Heart is regular without murmur gallop or rub Abdomen soft nondistended. Extremities with 1+ edema. Good pedal and radial pulses. No skin rash or lesions. IVs and Medications Medications Reviewed: Medications were reviewed in detail Lab and Diagnostics Result Diagram: 04/02/16 0330 04/02/16 0330 X-Rays, CTs and MRIs Chest x-ray pending Assessment & Plan This is a 45 year old female with history of asthma and polysubstance abuse who presented in acute respiratory failure: 1. Acute hypoxic respiratory failure, POA. She was having problems with stacking yesterday. She has a smaller tidal volume and a sore respiratory rate. She appears to be doing better with this. She is still requiring deep sedation. No anticipated changes with her today. Vent settings. FiO2 of 40, PEEP of 10, rate 1212 I am 380. Pressures at 31 with mean pressures of 14. MAP is 86. 2. Status asthmaticus. POA. We will continue methylprednisolone as well as her bronchodilators and a more frequent basis today. She remains relatively bronchospastic. 3. Rhinovirus, URI. POA. Supportive care. 4. Positive blood culture, probable coag negative staph: This is felt to be a contaminant. -Vancomycin has been discontinued. 5. Lactic acidosis, airway. Resolved: -Lactic acid is 1.2. -Lactated ringers discontinued as patient is 5 liters up. 6. Elevated troponin on the POA.: -.Troponins: 053 --> .234 --> .122 -Echocardiogram showed EF of 40-45% (possible chronic systolic heart failure) and severe hypokinesis globally. No further workup at this time until she stabilizes. 7. Polysubstance abuse on the POA: -Tox screen positive for methamphetamine, benzodiazepines, and cannabinoids. -Continue to watch for signs of withdrawal, the Ativan has been titrated up as a drip to cover for possible benzodiazepine withdrawal symptoms.. DVT prophylaxis with subq heparin GI prophylaxis with famotidine. VTE Mechanical Devices: Intermittant Pneumatic CD Resuscitation Status: CPR: Attempt Resuscitation Time spent 30 minutes Jamir Rodrigues MD Apr 02, 2016 09:14
--- NOTE | 2016-04-02 09:17 | DRSVH ---
PROCEDURE: X-RAY CHEST ONE VIEW, PORTABLE ([id number]) INDICATIONS: status asthmaticus TECHNIQUE: One view of the chest was acquired. COMPARISON: [facility], CR, XR CHEST 1VW (PORTABLE), 04/01/2016, 4:06. FINDINGS: Surgical changes and devices: ET and NG tubes are stable in appearance. Lungs and pleura: No pleural effusions or pneumothorax. Lungs are clear. Mediastinum: Mediastinal contours appear normal. Heart size is normal. Bones and chest wall: No suspicious bony lesions. Overlying soft tissues appear unremarkable. IMPRESSION: No acute cardiopulmonary disease process. Dictated by: Valorie Torres MD, PhD on 04/02/2016 at 9:15 Approved by: Valorie Torres MD, PhD on 04/02/2016 at 9:15
[2016-04-02] MEDS ORDERED: LORazepam 100 mg/100 mL NS 100 MG in IV Premix 1 EACH IV SCH (11:25)
[2016-04-02] MEDS: fentaNYL 2,500 mCg/250 mL 2,500 MCG in IV Premix 1 EACH IV PRN (11:59)
--- NOTE | 2016-04-02 16:05 | PROG NOTE ---
[address] [address] PROGRESS NOTE PATIENT: OSMANY MARSHALL : 1970 MR#: [id number] ADMIT: 03/29/2016 JOB ID: [id number] DATE: 04/02/2016 PULMONARY CRITICAL CARE FOLLOWUP NOTE: PROBLEM LIST: 1. Status asthmaticus. 2. Hypoxemic hypercarbic respiratory failure, acute. 3. Polysubstance abuse. 4. Rhinovirus respiratory tract infection. SUBJECTIVE: None. OBJECTIVE: Temperature 36.5, pulse 100-110, respiratory rate 14 with ventilator set at 12, blood pressure 127/63. O2 sat on FiO2 of 40%, PEEP of 10, is 94% to 97%. I and O shows 1.2 L in, 0.8 liters out. The patient is about 4.5 L positive in the past three days. Sedated on the ventilator. Chest: Diffuse inspiratory and expiratory wheezes. Patient with stacking of her respirations. Peak inspiratory pressure 29, plateau 21, with a tidal volume of 380, at a rate of 12. PEEP is set at 10, measured at 12 to 13. Capnography shows no evidence of plateauing. Heart: Regular rhythm. Heart tones normal. Abdomen: Soft. Relatively quiet; 275 mL of hutchison bile in NG suction. Extremities: No pretibial edema. LABORATORY: Shows a white count of 17,300 down from a white count of 21,400 yesterday. Significant neutrophilia. Hemoglobin 11.7 and stable. Platelet count 256,000 and stable. Lytes are normal. Creatinine stable at 0.46. BUN stable at 12. Glucose mildly elevated at 164. Calcium is 8, with an albumin of 3.3. Phosphorus normal at 3.3. Magnesium normal at 2.1. Slight elevation of AST and ALT to 68 and 54, respectively. IMAGING: Chest x-ray shows clear lungs. ASSESSMENT: 1. Status asthmaticus. The patient remains quite bronchospastic. Has some mild auto-peeping with measured PEEP at 12-13 with a set PEEP at 10. In addition, capnography shows no plateauing of a tidal volume CO2 curve. Stacking some breaths. Waveforms suggest that she prefers a larger tidal volume, though we will be unable to do this because of the air trapping. Will have to continue with the relatively heavy sedation, though it actually is not too too bad at this point. Will need to continue the current regimen of bronchodilators with aggressive beta agonists, antimuscarinics, and steroids. 2. The patient is about 4.5 liters positive in fluid. Suspect she was relatively dry when she came in. No evidence of hypovolemia on admission. Even though she appear somewhat dry, would suspect that a trial of Lasix might be in order as she might have some fluid retention in the lung causing us some of our problems. Will discuss with primary. PLAN: 1. Continue aggressive bronchodilators. 2. Unfortunately we need to continue the IV sedation as we are ventilating her at a low tidal volume. 3. Consider furosemide IV 20 mg a day. TIME: Time spent on critical care 40 minutes.
--- NOTE | 2016-04-02 17:47 | NUR ---
Vent/Resp Vent settings remained the same today as yesterday, as well as medications. Pt LS slightly less wheezy and coarse then yesterday. Small to moderate amt thick, pale yellow secretions from ETT. Sedation unchanged from overnight houseperson: Ativan 5mg/hr, Fentanyl 150mcg/hr, Propofol 5mcg/kg/min. RASS -3.
[2016-04-02] MEDS: LORazepam Inj 100 MG in 0.9% Sodium Chloride 50 ML IV SCH (19:50)
[2016-04-03] VITALS (12 sets, daily range): BP systolic 133–159; BP diastolic 74–93; PULSE 92–103; RESP 12; O2SAT 93–97
[2016-04-03] MEDS: Chlorhexidine 0.12% 15 mL Oral Solution MT SCH ×6 (00:30→20:28)
[2016-04-03] MEDS: MethylprednisoLONE Sodium Succinate 62.5 mg/mL 2 mL Inj IVPUSH SCH ×3 (01:53→17:18)
[2016-04-03] MEDS: Heparin 5,000 Unit/mL Inj SUBQ SCH ×3 (01:53→17:18)
[2016-04-03] MEDS: Insulin Human REGular 300 Unit/3 mL Inj - Low SUBQ SCH ×4 (01:54→20:30)
[2016-04-03] MEDS: Albuterol-Ipratropium 3 mL Inhalation Solution NEB SCH ×5 (02:43→20:06)
[2016-04-03] MEDS: Propofol Inj 1,000,000 MCG in IV Premix 1 EACH IV SCH ×2 (03:25→17:37)
[2016-04-03] MEDS: fentaNYL 2,500 mCg/250 mL 2,500 MCG in IV Premix 1 EACH IV PRN ×2 (03:25→20:25)
[2016-04-03] MEDS: Dextrose 5% 0.9% NaCl 1,000 ML IV SCH ×3 (03:52→21:00)
[2016-04-03] MEDS: Albuterol 0.5% (5mg/mL) 20 mL Inhalation Solution NEB SCH ×5 (04:08→22:32)
--- NOTE | 2016-04-03 06:00 | NUR ---
Resp/activity: Pt not tolerating manual turns Spo2 drops and takes awhile to recover. Pt was placed in modified continuous rotation with 40% turn to Rt/5min,lt/5min,back/5min. pt has tolerated bed rotation spo2 has been stable.
[2016-04-03] MEDS: Famotidine Inj 20 MG in IV Premix 1 EACH IV SCH ×2 (08:45→21:00)
[2016-04-03 10:31] LABS: Mean Corpuscular Hemoglobin 26.4 pg (27.0-35.0); Mean Corpuscular Volume 87.5 fL (81-100)
[2016-04-03] MEDS ORDERED: NACL IV ONE (12:22)
[2016-04-03] MEDS ORDERED: DEXTROSE IV ONE (12:22)
--- NOTE | 2016-04-03 14:17 | PCM.PNMED ---
Subjective Date of Service Apr 03, 2016 Subjective The patient is sedated and intubated. Review of systems and subjective is not obtainable Exam Vital Signs Vital Sign - Last Date Time Temp Pulse Resp B/P Pulse Ox O2 Delivery O2 Flow Rate FiO2 04/03/16 12:30 37.0 97 12 154/88 94 Mechanical Ventilator 40 Intake and Output 04/02/16 04/02/16 04/03/16 Cumulative From/Thru 15:00 23:00 07:00 03/29/16 16:49 - 04/03/16 05:46 Intake Total 1535 ml 1804 ml 24323 ml Output Total 860 ml 750 ml 6485 ml Balance 675 ml 1054 ml 8279 ml Intake Oral 0 ml IV Total 1535 ml 1804 ml 43204 ml Tube Feeding 126 ml Tube Irrigant 30 ml Output Urine Total 585 ml 700 ml 5130 ml Gastric Drainage Total 275 ml 50 ml 1355 ml # Bowel Movements 0 0 Exam She is sedated and intubated. Normal head. Symmetric pupils. Oropharynx notable for endotracheal tube in place. Prograf lungs patient is inspiratory and expiratory wheezing. This seems to be slightly increased compared to yesterday. Heart is regular without murmur gallop or rub Abdomen is nondistended. Extremities are notable for 1+ edema. Good pedal pulses. IVs and Medications Medications Reviewed: Medications were reviewed in detail Lab and Diagnostics Result Diagram: 04/03/16 1005 04/03/16 1005 X-Rays, CTs and MRIs Chest x-ray pending Assessment & Plan This is a 45 year old female with history of asthma and polysubstance abuse who presented in acute respiratory failure: 1. Acute hypoxic respiratory failure, POA. She was having problems with stacking yesterday. She has a smaller tidal volume and a sore respiratory rate. She appears to be doing better with this. She is still requiring deep sedation. No anticipated changes with her today. With regard to vent settings and sedation. 2. Status asthmaticus. POA. We will continue methylprednisolone as well as her bronchodilators and a more frequent basis today. She remains relatively bronchospastic. She continues to be quite tight. There is a concern with the lock corner machine operator regarding volume overload. I will follow his suggestion of Lasix starting 40 IV once a day today to treat 5 Amaryl as a possible contributor to her wheezing and general pulmonary status. 3. Rhinovirus, URI. POA. Supportive care. 4. Positive blood culture, probable coag negative staph: This is felt to be a contaminant. -Vancomycin has been discontinued. 5. Lactic acidosis, airway. Resolved: -Lactic acid is 1.2. -Lactated ringers discontinued as patient is 5 liters up. 6. Elevated troponin on the POA.: -.Troponins: 053 --> .234 --> .122 -Echocardiogram showed EF of 40-45% (possible chronic systolic heart failure) and severe hypokinesis globally. No further workup at this time until she stabilizes. 7. Polysubstance abuse on the POA: -Tox screen positive for methamphetamine, benzodiazepines, and cannabinoids. -Continue to watch for signs of withdrawal, the Ativan has been titrated up as a drip to cover for possible benzodiazepine withdrawal symptoms.. DVT prophylaxis with subq heparin GI prophylaxis with famotidine. Pain Evaluation: Adequate Pain Control VTE Mechanical Devices: Intermittant Pneumatic CD Resuscitation Status: CPR: Attempt Resuscitation Time spent 40 minutes Jamir Rodrigues MD Apr 03, 2016 14:17
[2016-04-03] MEDS: LORazepam Inj 100 MG in 0.9% Sodium Chloride 50 ML IV SCH ×2 (15:00→17:38)
--- NOTE | 2016-04-03 17:48 | NUR ---
SECRETIONS/ACTIVITY TOLERANCE Respiratory status remains unchanged this shift, continue to suction PRN via ETT and orally. Returning creamy, greenish sputum w/ foul odor. MD notified in case sputum culture desired. Patient continues to not tolerate manual turns Q2H, becomes tachypneic w/ decreased SpO2 that requires nearly 5 minutes to recover. Bed remains on continuous lateral rotation therapy at 40% and 5 minutes at each setting: L/R/Sup. Will continue to monitor respiratory status and attempt manual turns.
--- NOTE | 2016-04-03 17:49 | NUR ---
Social Work Note: Continued Discharge Planning Data& Assessment: Pt is intubated and remains on tube feeds. SW to continue to follow for medical progression. SW to follow up with pt regarding CD assessment when appropriate. SW to continue to follow. Plan: SW to follow up with pt regarding CD assessment and discharge planning post extubation and when appropriate. SW to continue to follow. HEBER Dixon
[2016-04-04] VITALS (14 sets, daily range): BP systolic 136–148; BP diastolic 75–89; PULSE 95–108; RESP 11–15; O2SAT 92–97
--- NOTE | 2016-04-04 00:33 | NUR ---
nasal/oral drainage: Pt has thick greenish/yellow drainage from mouth and nares with foul odor. Sample was collected from bilateral nares with mucus trap and sterile suction catheter and sent to lab for culture.
[2016-04-04] MEDS: Chlorhexidine 0.12% 15 mL Oral Solution MT SCH ×7 (00:39→23:47)
[2016-04-04] MEDS: MethylprednisoLONE Sodium Succinate 62.5 mg/mL 2 mL Inj IVPUSH SCH ×4 (00:42→23:47)
[2016-04-04] MEDS: Heparin 5,000 Unit/mL Inj SUBQ SCH ×4 (00:43→23:48)
[2016-04-04] MEDS: Albuterol-Ipratropium 3 mL Inhalation Solution NEB SCH ×7 (01:01→22:57)
[2016-04-04] MEDS: Insulin Human REGular 300 Unit/3 mL Inj - Low SUBQ SCH ×4 (02:30→20:28)
[2016-04-04] MEDS: Albuterol 0.5% (5mg/mL) 20 mL Inhalation Solution NEB SCH ×5 (03:04→20:30)
[2016-04-04] MEDS: Propofol Inj 1,000,000 MCG in IV Premix 1 EACH IV SCH ×3 (04:30→22:16)
--- NOTE | 2016-04-04 07:48 | PCM.PNMED ---
Subjective Date of Service Apr 04, 2016 Subjective Patient is intubated and sedated. ROS subjective not obtainable Exam Vital Signs Vital Sign - Last Date Time Temp Pulse Resp B/P Pulse Ox O2 Delivery O2 Flow Rate FiO2 04/04/16 07:21 95 147/82 94 40 04/04/16 04:30 Ventilator 04/04/16 04:30 37.1 12 Intake and Output 04/03/16 04/03/16 04/04/16 Cumulative From/Thru 15:00 23:00 07:00 03/29/16 16:49 - 04/04/16 06:39 Intake Total 1661 ml 1240 ml 90536 ml Output Total 575 ml 1150 ml 8210 ml Balance 1086 ml 90 ml 9455 ml Intake Oral 0 ml IV Total 1661 ml 1240 ml 43090 ml Tube Feeding 126 ml Tube Irrigant 30 ml Output Urine Total 550 ml 1050 ml 6730 ml Gastric Drainage Total 25 ml 100 ml 1480 ml # Bowel Movements 0 0 Exam Intubated and sedated. Normal scalp. Endotracheal tube in place. Lungs with respiratory wheezes and a x-ray wheeze and outflow phase. Heart is regular without murmur Abdomen soft. Extremities are normal for 1+ edema Good radial and pedal pulses Skin is free of rash or lesions. IVs and Medications Medications Reviewed: Medications were reviewed in detail Lab and Diagnostics Result Diagram: 04/03/16 1005 04/03/16 1005 X-Rays, CTs and MRIs Chest x-ray pending Assessment & Plan This is a 45 year old female with history of asthma and polysubstance abuse who presented in acute respiratory failure: 1. Acute hypoxic respiratory failure, POA. She was having problems with stacking yesterday. She has a smaller tidal volume and a sore respiratory rate. She appears to be doing better with this. She is still requiring deep sedation. No anticipated changes with her today. With regard to vent settings and sedation. 2. Status asthmaticus. POA. We will continue methylprednisolone as well as her bronchodilators and a more frequent basis today. She remains relatively bronchospastic. She continues to be quite tight. Situation was revealed with sweat box attendant today. The patient continues to have a very poor flow curve with regards to her expiratory obstruction. He also notes that she is feeling to reach and tidal on her CO2 monitor. At this point she is maximized on all of the standard treatment. We will continue to support her on the current medical regimen and ventilator. 3. Rhinovirus, URI. POA. Supportive care. 4. Positive blood culture, probable coag negative staph: This is felt to be a contaminant. -Vancomycin has been discontinued. No further fevers. 5. Lactic acidosis, airway. Resolved: -Lactic acid is 1.2. -Lactated ringers discontinued as patient is 5 liters up. 6. Elevated troponin on the POA.: -.Troponins: 053 --> .234 --> .122 -Echocardiogram showed EF of 40-45% (possible chronic systolic heart failure) and severe hypokinesis globally. No further workup at this time until she stabilizes. 7. Polysubstance abuse on the POA: -Tox screen positive for methamphetamine, benzodiazepines, and cannabinoids. -Continue to watch for signs of withdrawal, the Ativan has been titrated up as a drip to cover for possible benzodiazepine withdrawal symptoms.. DVT prophylaxis with subq heparin GI prophylaxis with famotidine. Addendum. This afternoon the PICC team was placed in the right arm PICC. The PICC line became knotted inside the vein. The line was retrieved over the wire and snapped leaving the wire and the distal aspect of the PICC line intravenous. There is no clinical Decompensation. For fluoroscopy revealed that this is in the basilic vein. A sterile dressing was placed over the wire entry site of the arm. Gentle pressure was placed on it. The case was reviewed with interventional radiologist who did not feel that she would be able to retrieve this percutaneously. Cases and reviewed with general surgery who felt that they would build obtain this either with a direct approach toward the very worst case do a proximal basilic vein ligation and retrieval. The patient's family given consent for the PICC they were not able to be reached. I discussed the situation with Dr. Groves we felt that that consent would cover any associated issues such as the PICC line retrieval. We will proceed with a retrieval this afternoon. Pain Evaluation: Adequate Pain Control VTE Mechanical Devices: Intermittant Pneumatic CD Resuscitation Status: CPR: Attempt Resuscitation Time spent 40 minutes Jamir Rodrigues MD Apr 04, 2016 07:48
[2016-04-04 08:07] LABS: EOSINOPHILS % (AUTO) 0 % (0-5); Mean Corpuscular Hemoglobin 26.8 pg (27.0-35.0); Mean Corpuscular Volume 86.3 fL (81-100); Platelet Count 275 bil/L (150-400)
[2016-04-04 08:26] LABS: Magnesium 1.9 mg/dL (1.6-2.6); Phosphorus 3.8 mg/dL (2.5-4.9)
--- NOTE | 2016-04-04 08:49 | PROG NOTE ---
[address] [address] PROGRESS NOTE PATIENT: OSMANY MARSHALL : 1970 MR#: [id number] ADMIT: 03/29/2016 JOB ID: [id number] DATE: 04/04/2016 PULMONARY CRITICAL CARE FOLLOW UP NOTE: PROBLEMS: 1. Status asthmaticus. 2. Hypoxemic hypercarbic respiratory failure, acute. 3. Rhino virus respiratory tract infection. 4. Polysubstance abuse. SUBJECTIVE: None. OBJECTIVE: Temperature 37.1, pulse 91-108, though mostly in the mid 90s. Respiratory rate 12 with ventilator set at 12, blood pressure 148/83. O2 sat on FiO2 of 40%, PEEP of 10 is 94%. I and O shows 3.4 liters in, 1.3 liters out. I and O shows the patient to be about 8 L positive in the past five days. General appearance: Sedated on the ventilator. Chest: Moderately decreased breath sounds on inspiration. Expiration almost inaudible except for pulmonary adventitial sounds of wheezing. A few crackles on inspiration as well as wheezing on inspiration as well. With a tidal volume of 380, PEEP of 10, FiO2 of 40%, rate at 12, shows a peak inspiratory pressure of 32, a plateau which I believe is about 18 though hard to accurately measure. PEEP is set at 10. Seems to be measured at 10. Flow volume loop shows severe restriction of expiration with early inspiratory airway collapse. Capnography shows a measured tidal CO2 of 43 though there is no evidence of plateau indicating that this likely is a unreliable measurement. Heart: Somewhat distant tones. Heart tones seem normal. Abdomen is soft. Nondistended. Quiet. Extremities: No pretibial edema. Lab pending. ASSESSMENT: 1. Status asthmaticus. The patient continues to have a severe bronchospasm with marked narrowing of the airways. He has some early collapse of the airways. She continues to receive high doses of albuterol along with goodly doses of ipratropium and high doses of steroids. Only culture positivity is rhino virus. Recent pro calcitonin showed some rise and yesterday the patient was noted to have some rather foul smelling oral secretions. 2. Sedation. The patient currently on lorazepam, propofol and fentanyl. Will try to simplify the regimen preferring fentanyl and lorazepam due to her use of opiates and benzodiazepines to see if we can discontinue the propofol. Will see how that works out. 3. Malnutrition. Initial attempts at feeding were totally unsuccessful. Will need to reevaluate the situation and decide whether feeding can be started or whether we need to consider parental nutrition. PLAN: 1. Awaiting lab values. 2. Consider discontinuing capnography. Time spent in critical care 45 minutes.
[2016-04-04 09:09] LABS: BASOPHILS % (AUTO) 0 % (0-3); MONOCYTES % (AUTO) 4 % (4-12); NEUTROPHILS % (AUTO) 87 % (40-74)
[2016-04-04] MEDS ORDERED: Sodium Chloride LOK Flush 10 mL Syringe IVFLUSH PRN ×2 (09:30)
[2016-04-04] MEDS: Senna-Docusate 8.6-50 mg Tablet PO SCH ×2 (09:47→20:28)
[2016-04-04] MEDS ORDERED: Methylnaltrexone 12 mg/0.6 mL Inj SUBQ ONE (09:50)
--- NOTE | 2016-04-04 10:00 | DRSVH ---
PROCEDURE: X-RAY CHEST ONE VIEW, PORTABLE ([id number]) INDICATIONS: On vent TECHNIQUE: One view of the chest was acquired. COMPARISON: [facility], CR, XR CHEST 1VW (PORTABLE), 04/02/2016, 4:16. FINDINGS: Surgical changes and devices: The NG tube and endotracheal tube are unchanged. Lungs and pleura: No pleural effusions or pneumothorax. Lungs are clear. Mediastinum: Mediastinal contours appear normal. Heart size is normal. Bones and chest wall: No suspicious bony lesions. Overlying soft tissues appear unremarkable. IMPRESSION: No acute cardiopulmonary findings. Tubes and lines as above. Dictated by: Marisa Anguiano M.D. on 04/04/2016 at 9:58 Approved by: Marisa Anguiano M.D. on 04/04/2016 at 9:58
--- NOTE | 2016-04-04 10:32 | NUR ---
NUTRITION FOLLOW-UP: ASSESS: 45 YO female admitted to CCU with respiratory distress, status post intubation in the field, likely secondary to asthma exacerbation and rhinovirus infection. She remains intubated in CCU. TF stopped due to bile coming out of the pt's mouth per CCU rounds. PMHX: Severe asthma, polysubstance abuse, smoking. LABS: Reviewed. Cr 0.39, Glu 120, Ca 8.4, ALT 84, Alb 3.2 MEDS: Reviewed. Solu-medrol, Lasix, Fentanyl. Propofol currently running at ~14 ml/hr to provide 370 kcal/day. GI: No BM reported since admit SKIN: Alireza 10. Per Solvent Process Extractor Operator, there are no wound issues at this time. WT: 67.6 kg, BMI 25.6 kg/m2. Admit weight: 61.1 kg. DIET: NPO x 6 D. ENTERAL FEEDING: (ON HOLD) Vital 1.5 @ 10 ml/hr. ESTIMATED NEEDS: vent Calories: 6035-9040 kcal/day (20-25 kcal/kg BW) Protein: 95-110 g/day (1.5-1.8 g/kg BW) Fluid: 1605-1811 ml/day (25-30 cc/kg BW) NUTRITION DIAGNOSIS: 1) Inadequate oral intake related to decreased ability to consume sufficient energy as evidenced by current NPO status - PERSISTS. NUTRITION INTERVENTION: 1) If enteral feeding unable to be restarted, recommend initial TPN of 100 g Dex, 60 g AA, 10 g lipids providing 680 (TPN + Propofol = 1050 kcal), 60 g protein per day; meeting 86% calorie, 63% protein needs. Recommend starting at reduced rate due to prolonged NPO status with possible refeeding syndrome risk. 2) Once TPN tolerance established and propofol off, advance to goal TPN of 200 g Dex, 100 g AA, 35 g lipids providing 1430 kcal, 100 g protein; meeting 100% of calorie/protein needs. Adjust goal based on Propofol rate 3) Recommend TF of Vital 1.5 starting at 10 ml/hr, once tolerance established advance enteral feeding 5 ml every 4 hr. to goal 45 ml/hr, which would provide 1485 kcal and 67 g protein/day (100% kcal and 71% pro needs). Flush 40ml q 4 hrs. If IVF stopped, flush 130ml q 3 hrs. 4) Once at goal rate, recommend add 1 packet prosource TID to better meet protein needs. 5) Adjust goal rate based on propofol rate MONITOR/EVALUATE: NPO/vent status, TF vs TPN, labs, wt, GI, POC, nutrition status. Follow per high nutrition risk guidelines.
[2016-04-04] MEDS: Famotidine Inj 20 MG in IV Premix 1 EACH IV SCH ×2 (10:53→20:28)
[2016-04-04] MEDS: Furosemide 10 mg/mL 4 mL Inj IVPUSH SCH (10:54)
[2016-04-04] MEDS ORDERED: Senna Leaf Extract 528 mg/15 mL Syrup PO PRN (11:00)
[2016-04-04] MEDS ORDERED: fentaNYL-PF 50 mCg/mL 2 mL Inj ONE (11:18)
--- NOTE | 2016-04-04 13:54 | DRSVH ---
PROCEDURE: X-RAY PICC LINE PLACEMENT BY NURSE ([id number]) INDICATIONS: Resp failure. COMPARISON: None. FINDINGS: PICC was placed by the intravenous therapy team from the right side. A not is present wit hin the distal aspect of the catheter. Final image demonstrates fractured catheter fragment with wire in the upper arm. IMPRESSION: 1. Not within the distal aspect of the catheter. 2. Residual catheter/wire fragment within the medial aspect of the right upper arm. Dictated by: Karan Ramsey M.D. on 04/04/2016 at 13:52 Approved by: Karan Ramsey M.D. on 04/04/2016 at 13:52
--- NOTE | 2016-04-04 14:33 | NUR ---
Unsuccessful PICC Picc threaded easily looped into IJ when imaged pulled back to remove loop slight resistance met. Catheter broke off in pt arm. 11cm of catheter and wire remain in arm imaging show tied in knot at skin level Dr. Jamir Anguiano, Dr. Ireland and Dr. Murillo notifed and came to pts bedside
--- NOTE | 2016-04-04 14:54 | PCM.HPANE ---
Patient Data Surgeon Admitting Provider:Kiran Whitman MD Attending Provider:Kiran Whitman MD Primary Care Physician:Carlton Villarreal MD Other Provider: Reason for Visit Acute Respiratory Failure,Intubated Stuck picc line wire Ht/WT & BMI Height (Feet): 5 Height (Inches): 4.00 Weight (Kilograms): 67.600 Body Mass Index 23.00 Allergies Coded Allergies: No Known Allergies (Unverified , 03/29/16) Past Anesthesia History Anesthesia History: Denies:: Anesthesia Reactions Diabetes History Hx Diabetes?: No Current Bedside Blood Glucose: 108 MRSA MRSA: No Medications Unable to Obtain Active Prescriptions or Reported Meds History History of ENT Problems?: No Hx of Heart Problems?: No Hx of Respiratory Problem?: Yes (Patient intubated and sedated on vent.) Respiratory History: Positive for:: Asthma Dyspnea Denies:: Tuberculosis Hx Neurologic Problems?: Yes Neurological History: Positive for:: Headaches (2016) Hx of GI Problems?: Yes Other GI Pertinent History: hx colitis-info per pt's parents Hx of Problems?: Yes Genitourinary History: Positive for:: Urinary Tract Infection Denies:: HX of Hemodialysis Kidney Stones HX of Peritoneal Dialysis: No Female Hx: Denies:: Currently Endometriosis Pelvic Inflammatory Problems with Breasts? Hx Musculoskeletal Problems?: Yes Hx Surgeries?: No Hx Any Other Health Problems?: Yes Other History: Positive for:: Hospitalization Denies:: Cancer Thyroid Disease History Blood Transfusions: Positive for:: Accept Blood Products? Denies:: Blood Transfuse Reaction Blood Transfusions Hx Diabetes: NoBedside Blood Glucose: 108 Hx Alcohol Use: NoAlcoholic Drinks Per Day: hard liquor history Hx Substance Use: Yes ( states she previously used Meth) Smoking Status: Current Every Day Smoker Have You Smoked inLast 12 mo: YesApprox How Many Cigarettes/day: unknown Stop/Bang Treated for Sleep Apnea?: No Do You Have a CPAP Machine?: No S-Snoring: Do You Snore Loudly: No T-Tired: feel tired, fatigued: No O-Obsered: Observed not breath: No P-Blood Pressure: treated: No B- Body Mass Index > 35 kg/m2: No A- Age over 50: No N- Neck Large Circumference: No G- Gender Male: No MODESTA Total Score: 0 Risk Assessment Category Category 1A: Patient has history of documented sleep apnea, and HAS NOT received any narcotic, sedative or anesthesia administration during this stay. Category 1B: Patient has history of documented sleep apnea, and HAS received any narcotic , sedative or anesthesia administration during this stay Category 2: Patient has SUSPECTED Obstructive Sleep Apnea, and HAS received any narcotic , sedative or anesthesia administration during this stay. Category 3: Patient has SUSPECTED Obstructive Sleep Apnea and HAS NOT received narcotic, sedative or anesthesia administration during this stay. Category 4: Outpatient in Procedural Areas with known sleep apnea or who screen positive for High Risk via the STOP/BANG questionnaire. Exam Exam Vital Signs Vital Signs Date Time Temp Pulse Resp B/P Pulse Ox O2 Delivery O2 Flow Rate FiO2 04/04/16 11:00 98 147/82 94 40 04/04/16 09:28 95 142/82 04/04/16 08:13 Ventilator 04/04/16 08:13 36.9 100 15 148/88 95 Mechanical Ventilator 40 04/04/16 07:21 95 147/82 94 40 General Appearance: Other (intubated /sedated on vent) HEENT/AIRWAY: Other (intubated) Lungs: Normal Air Movement Heart: Exam Unremarkable Meds/Labs/Diagnostics Admission Meds Current Medications Furosemide (Lasix Inj) 40 mg DAILY IVPUSH Last administered on 04/04/16 10:54; Start 04/04/16 at 08:30 Methylnaltrexone [place] (Relistor Inj) 12 mg ONCE ONCE SUBQ Last administered on 04/04/16 10:56; Start 04/04/16 at 09:50; Stop 04/04/16 at 09:51; Status DC Bedside Blood Glucose: 108 Labs Test 03/29/16 16:57 03/29/16 17:48 03/30/16 04:50 03/30/16 08:20 Pro-B-Type Natriuretic Peptide 105.5pg/mL (0-249) Urine Color Yellow (YELLOW) Urine Appearance Clear (CLEAR,HAZY) Urine pH 6.0 (5.0-8.0) Urine Specific [place] 1.028 (1.003-1.035) Urine Protein 30mg/dL (NEG,TRACE) Urine Glucose (UA) Negativemg/dL (NEGATIVE) Urine Ketones Negativemg/dL (NEGATIVE) Urine Occult Blood Negative (NEGATIVE) Urine Nitrite Negative (NEGATIVE) Urine Bilirubin Negative (NEGATIVE) Urine Urobilinogen Normalmg/dL (NORMAL) Urine Leukocyte Esterase Negative (NEGATIVE) Urine RBC 0-2/hpf (0-2) Urine WBC 0-5/hpf (0-5) Urine Epithelial Cells Occasional/hpf (NONE-MOD) Urine Crystals None seen (NONE SEEN) Urine Bacteria Few/hpf (NONE-FEW) Urine Hyaline Casts None/lpf (NONE) Urine Granular Casts Rare (NONE SEEN) Urine Waxy Casts None seen (NONE SEEN) Urine Red Blood Cell Casts None seen (NONE SEEN) Urine White Blood Cell Casts None seen (NONE SEEN) Urine Mucus None seen (None Seen) Urine Trichomonas None seen (NONE SEEN) Urine Yeast None (NONE SEEN) Urinalysis Comment None Urine Culture Reflexed Not indicated Urine Opiates Screen Negative Urine Methadone Screen Negative Urine Barbiturates Screen Negative Urine Amphetamines Screen Positive Urine Benzodiazepines Screen Positive Urine Cocaine Metabolite Screen Negative Urine Cannabinoids Screen Positive Hemoglobin A1c 5.7% (4.8-5.6) Troponin T 0.122ug/L (0.0-0.011) Test 03/31/16 08:15 03/31/16 10:05 04/01/16 03:27 04/02/16 03:30 Lactic Acid Level 1.3mmol/L (0.4-2.0) Vancomycin Level Trough 3.8mcg/mL Prealbumin 20mg/dL (20-40) Procalcitonin 0.15ng/mL (See Comment) Test 04/04/16 07:35 04/04/16 07:45 White Blood Count 21.1th/mm3 (3.8-10.1) Red Blood Count 4.37mil/mm3 (3.90-5.20) Hemoglobin 11.7g/dL (12.0-15.6) Hematocrit 37.7% (35.0-46.0) Mean Corpuscular Volume 86.3fL (81-100) Mean Corpuscular Hemoglobin 26.8pg (27.0-35.0) Mean Corpuscular Hemoglobin Concent 31.0% (32.0-37.0) Red Cell Distribution Width 15.1% (12.3-15.4) Platelet Count 275bil/L (150-400) Neutrophils (%) (Auto) 87% (40-74) Lymphocytes (%) (Auto) 2% (14-46) Monocytes (%) (Auto) 4% (4-12) Eosinophils (%) (Auto) 0% (0-5) Basophils (%) (Auto) 0% (0-3) Band Neutrophils % 4% (1-5) Metamyelocytes % 2% (0-0) Myelocytes % 1% (0-0) Nucleated Red Blood Cells 1/100 WBC (0-24) Sodium Level 143mEq/L (134-144) Potassium Level 4.4mEq/L (3.5-5.2) Chloride Level 104mEq/L (97-108) Carbon Dioxide Level 30mmol/L (18-29) Blood Urea Nitrogen 13mg/dL (6-24) Creatinine 0.39mg/dL (0.57-1.00) Estimat Glomerular Filtration Rate 253mL/min (>59) Glucose Level 120mg/dL (60-99) Calcium Level 8.4mg/dL (8.5-10.1) Phosphorus Level 3.8mg/dL (2.5-4.9) Magnesium Level 1.9mg/dL (1.6-2.6) Total Bilirubin 0.2mg/dL (0.0-1.2) Aspartate Amino Transf (AST/SGOT) 33U/L (0-50) Alanine Aminotransferase (ALT/SGPT) 84U/L (0-32) Alkaline Phosphatase 63U/L (25-150) Total Protein 5.7g/dL (6.4-8.4) Albumin 3.2g/dL (3.4-5.0) Plan Impression Patient chart reviewed, patient interviewed and anesthestic plan with risks, benefits, and alternatives discussed, and informed consent obtained. ASA Physical Status: ASA3 Severe Disease Anesthetic Plan: GA Bene/Risks/Altern/Consents: No (patient intubated therefore consent not possible) HP Complete Prior to Induction: Yes Evans Gonzalez MD Apr 04, 2016 14:39
[2016-04-04] MEDS ORDERED: 0.9% Sodium Chloride 500 ML IV ONE (15:02)
[2016-04-04] MEDS: fentaNYL 2,500 mCg/250 mL 2,500 MCG in IV Premix 1 EACH IV PRN (15:02)
[2016-04-04] MEDS ORDERED: Bupivacaine-MPF 0.5% W/EPI 30 mL Inj INFILTRATE ONE (15:20)
--- NOTE | 2016-04-04 16:48 | CONS ---
[address] [address] CONSULTATION REPORT PATIENT: OSMANY MARSHALL : 1970 MR#: [id number] ADMIT: 03/29/2016 JOB ID: [id number] DATE OF SERVICE: 04/04/2016 CHIEF COMPLAINT/IDENTIFICATION: Dr. Malcolm has asked me to see this is 45-year-old female with intravascular foreign body. HISTORY OF PRESENT ILLNESS: The patient has been admitted in respiratory distress, is intubated in the ICU. A PICC line was being placed today and the tip was noted to have been tied into a knot. Upon noting this, an attempt was made to withdraw the catheter. However, after having withdrawn the tip of the catheter with its knot back into the vein of the extremity, it was noted that the wire was apparently attached to the knot. To make matters worse, the catheter broke off just below the skin and at this point fluoroscopy demonstrated that there remained what appears to be the distal tip of the catheter along with a wire in the proximal brachial and/or basilic vein of the right upper arm. This was secured and General Surgery consultation was obtained. PAST MEDICAL HISTORY: Per admission history and physical, the patient does have a history of asthma. ALLERGIES: There are no known allergies. SOCIAL HISTORY: She lives with her , though her mother is listed as her next of kin. Her mother has signed her consent for the PICC line, but the phone number that we have in the medical record for the mother is disconnected. We do not have any other phone numbers to contact next of kin in the medical record or otherwise available. FAMILY HISTORY/REVIEW OF SYSTEMS/REMAINING SOCIAL HISTORY: Per admission history and physical and the chart. PHYSICAL EXAMINATION: Patient is intubated, heavily sedated, unable to participate in the interview. She does have a wire extending from the left medial aspect of her right proximal arm with an attached catheter. Everything is secured with tape. LABORATORY DATA: Her white count remains elevated at 21,000. Her hematocrit is 37. Chemistries are more or less normal. Her albumin is 3.2. There are no recent coags. IMAGING: I reviewed the images from the PICC line placement and concur with the reading that there is residual catheter and wire fragment within the right upper arm. IMPRESSION AND PLAN: Intravascular foreign body that at this point is stable but needs to be removed. I think it is safest if we do this in the operating room. Ideally, we would obtain consent from next of kin but none is available. Given the risk for migration and catheter and/or wire embolus, and the fact that the mother did sign informed consent for the PICC line that does mention the risks including catheter embolus, I think we need to move ahead. Dr. Rodrigues and Dr. Mehta and Dr. Gonzalez all agree with me, and we will therefore take her to the operating room for cut down on the vein and removal of the foreign body.
--- NOTE | 2016-04-04 16:52 | PCM.ANEP1 ---
Post Anesthesia Phase 1 PACU Phase 1 Assessment Date of Service: Mar 30, 2016 Vital Signs Vital Signs Date Time Temp Pulse Resp B/P Pulse Ox O2 Delivery O2 Flow Rate FiO2 04/04/16 16:30 Ventilator 04/04/16 16:30 36.3 100 11 137/79 92 Mechanical Ventilator 40 04/04/16 14:52 98 147/82 94 40 04/04/16 13:00 36.7 98 11 148/85 92 04/04/16 12:00 Ventilator 04/04/16 11:00 98 147/82 94 40 04/04/16 09:28 95 142/82 Anesthetic Administered: GA BYRNE's with Equal Strength: No Pain: No Oxygen Delivery: Mechanical Ventilator Lungs: Normal Air Movement Evans Gonzalez MD Apr 04, 2016 16:52
--- NOTE | 2016-04-04 16:54 | PCM.ANEP2 ---
Post Anesthesia Evaluation ASA/CMS Post Anesthesia VS in Patient's Normal Range?: Yes Resp Stable; Airway Patent?: Yes CV Function & Hydration Stable: Yes Mental Status Recovered?: No Pain control Satisfactory?: Yes N/V Control Satisfactory?: No Additional Comments Patient remains intubated and sedated in ICU due to her underlying pulmonary insufficiency unrelated to her anesthetic procedure Evans Gonzalez MD Apr 04, 2016 16:53
[2016-04-04] MEDS: LORazepam Inj 100 MG in 0.9% Sodium Chloride 50 ML IV SCH (17:13)
[2016-04-04] MEDS: Dextrose 5% 0.9% NaCl 1,000 ML IV SCH (17:13)
--- NOTE | 2016-04-04 17:40 | ABG ---
DateTimeAnalyzed 17:35:00 -_ pH ____7.404 - 7.350 7.450 pCO2 ___56.9__ -mmHg 35.0 45.0 pO2 ___58.6__ -mmHg 69.0 116 HCO3- ___34.8__ -mmol/L 22.0 26.0 ABE ____8.8__ -mmol/L -2.0 2.0 tHb ___12.1__ -g/dL O2Hb ___88.2__ -% COHb ____1.0__ -% MetHb ____1.0__ -% sO2 ___90.0__ -% FIO2 ___40.0__ -% PRVC 380 - PEEP ___10.0__ -cmH2O Set_RR ___12.0__ -b/min Vt __380.0__ -L Drawn By NB - Date/Time Notified____ 17:40:00 -_ Oxygen Device 1 VENTILATOR - Notified By nb - Notified Whom _schwartz - B 765 -mmHg tO2 ___15.0__ -Vol% Jamir test N/A -
--- NOTE | 2016-04-04 18:08 | NUR ---
To OR at 1500.
--- NOTE | 2016-04-04 18:08 | NUR ---
Returned from OR Returned from OR at 1630. Patient well sedated. No change in drips. OGT back to LCS. Vent back to prior settings, 40, 10, 380, 12. Sats noted to be 91-92%. Sats did not recover to >92, so RT was notified. ABG done. ABG results phoned to Pulmonology team and they came to assess. Stat CXR ordered and pending. Pulmonology adjusted Vent settings to 60, 12, 350, 12. Sats are currently 95%. Lungs very coarse/wheezy/tight t/o. OVIDIO dressing CDI. Tele SR, 90s. Patient voided 4L today. Continuing with POC.
--- NOTE | 2016-04-04 18:29 | NUR ---
Received report and assumed care of patient at 1300 today.
--- NOTE | 2016-04-04 18:53 | DRSVH ---
PROCEDURE: X-RAY CHEST ONE VIEW, PORTABLE ([id number]) INDICATIONS: CHECK CENTRAL LINE PLACEMENT TECHNIQUE: One view of the chest was acquired. COMPARISON: [facility], CR, XR CHEST 1VW (PORTABLE), 04/02/2016, 4:16. [facility], CR, XR CHEST 1VW (PORTABLE), 04/04/2016, 8:49. FINDINGS: Surgical changes and devices: There is a right IJ central line with the tip in the area of SVC. Endot brennan tube and nasogastric tube are again noted, stable in position. Lungs and pleura: No pleural effusions or pneumothorax. Left basilar opacity may be infiltrate or at electasis. Mediastinum: Mediastinal contours appear normal. Heart size is normal. Bones and chest wall: No suspicious bony lesions. Overlying soft tissues appear unremarkable. IMPRESSION: Right IJ central line with tip in the care of SVC. Dictated by: Jerrell Lake M.D. on 04/04/2016 at 18:51 Approved by: Jerrell Lake M.D. on 04/04/2016 at 18:51
--- NOTE | 2016-04-04 23:25 | OP ---
[address] [address] OPERATIVE REPORT PATIENT: OSMANY MARSHALL : 1970 MR#: [id number] ADMIT: 03/29/2016 JOB ID: [id number] DATE OF SURGERY: 04/04/2016 PREOPERATIVE DIAGNOSIS(ES): Intravascular foreign body. POSTOPERATIVE DIAGNOSIS(ES): Intravascular foreign body. PROCEDURE: Right upper arm exploration with removal of intravascular foreign body. SURGEON: Kishan Murillo MD. CHILD DEVELOPMENT CONSULTANT: Meliton Stuart PA-C. INDICATIONS: The patient is a 45-year-old woman who has a fragment of distal PICC line with attached wire in the venous system of her upper extremity at risk for distal embolization. FINDINGS: 1. warehouse administrative assistant was medically necessary due to the potential risks of catheter dislodgement with cardiac embolization. 2. Catheter fragment and wire were removed in their entirety as described below. There were no complications. PROCEDURE: Patient was brought to the operating room directly from the ICU intubated. The procedure was performed on her hospital bed to minimize risks of exacerbating her underlying pulmonary disease with movement. The right arm was prepped and draped in sterile fashion up to the axilla and shoulder. The proximal catheter that was on the distal arm was prepped into the field as is the wire with care taken to minimize movement on the wire. I began by making a longitudinal incision from the wire entry site on the arm up toward the axilla. This was carried through subcutaneous tissues and we carefully followed the wire down to where we saw catheter external to the vein along with the wire. At this point, I used a mosquito to grasp the catheter and wire outside the vein. Having thus secured this portion to prevent distal embolization I then cut the wire. We were then able to bring the wire and catheter together as a solitary unit out until I could feel the knotted section bulging up against the venotomy. With just a little extra pressure everything came out in its entirety with the smooth cut end of the catheter evident and no distal fragments embolized. There was minimal backbleeding from the hole in the vein and this pretty much stopped with pressure, though we did suture some of the tissue over this with a single 4-0 Prolene after irrigating out the wound and obtaining hemostasis with pressure. I now inspected the catheter and the wire, and took it over for confirmation both by comparing it with x-ray and visual confirmation with IV therapy nurses that we do not have her concern regarding retained foreign body. We now irrigated out the wound, checked that hemostasis was good, closed the wound in layers. The patient tolerated the procedure well and was left in the OR with anesthesia to place a right internal jugular vein catheter for venous access.
[2016-04-05] VITALS (14 sets, daily range): BP systolic 94–133; BP diastolic 51–78; PULSE 98–114; RESP 14–18; O2SAT 96–100
[2016-04-05] MEDS: Albuterol 0.5% (5mg/mL) 20 mL Inhalation Solution NEB SCH ×6 (00:31→22:21)
[2016-04-05] MEDS: Insulin Human REGular 300 Unit/3 mL Inj - Low SUBQ SCH ×4 (02:24→20:30)
[2016-04-05] MEDS: Albuterol-Ipratropium 3 mL Inhalation Solution NEB SCH ×5 (02:45→20:11)
[2016-04-05] MEDS: Chlorhexidine 0.12% 15 mL Oral Solution MT SCH ×5 (04:29→20:35)
[2016-04-05] MEDS: Propofol Inj 1,000,000 MCG in IV Premix 1 EACH IV SCH (04:29)
--- NOTE | 2016-04-05 04:45 | ABG ---
DateTimeAnalyzed 04:40:00 -_ pH ____7.379 - 7.350 7.450 pCO2 ___60.4__ -mmHg 35.0 45.0 pO2 135 -mmHg 69.0 116 HCO3- ___34.8__ -mmol/L 22.0 26.0 ABE ____8.3__ -mmol/L -2.0 2.0 tHb ___11.4__ -g/dL O2Hb ___97.2__ -% COHb ____0.5__ -% MetHb ____1.1__ -% sO2 ___98.8__ -% FIO2 ___60.0__ -% PEEP ___12.0__ -cmH2O Set_RR ___12.0__ -b/min Vt __350.0__ -L Drawn By AF - Date/Time Notified____ 04:45:00 -_ Spontaneous_RR ___12.0__ -b/min Oxygen Device 1 VENTILATOR - Notified By AF - Notified Whom ____Nurse - B 764 -mmHg tO2 ___15.8__ -Vol% Jamir test _Positive -
[2016-04-05] MEDS: fentaNYL 2,500 mCg/250 mL 2,500 MCG in IV Premix 1 EACH IV PRN ×2 (05:10→20:36)
[2016-04-05 05:30] LABS: EOSINOPHILS % (AUTO) 0 % (0-5); Mean Corpuscular Hemoglobin 26.5 pg (27.0-35.0); Mean Corpuscular Volume 85.9 fL (81-100); Platelet Count 270 bil/L (150-400)
[2016-04-05 05:55] LABS: Phosphorus 4.1 mg/dL (2.5-4.9)
[2016-04-05 06:31] LABS: BASOPHILS % (AUTO) 0 % (0-3); MONOCYTES % (AUTO) 7 % (4-12); NEUTROPHILS % (AUTO) 79 % (40-74)
--- NOTE | 2016-04-05 06:40 | NUR ---
Respiratory Pt on vent support, fio2 0.60, peep 12, rate 12, vt 350, pt auto-peeping around 2100, RT made aware, increased propofol gtt, continued on fentanyl and ativan gtts, RASS -3. AM abg with pH 7.38, pc02 60, p02 135, hc03 34.8, no new changes to vent settings, vital signs stable.
--- NOTE | 2016-04-05 07:25 | PCM.PNMED ---
Subjective Date of Service Apr 05, 2016 Subjective Patient is intubated and sedated. ROS subjective not obtainable Exam Vital Signs Vital Sign - Last Date Time Temp Pulse Resp B/P Pulse Ox O2 Delivery O2 Flow Rate FiO2 04/05/16 04:49 94 133/78 96 60 04/05/16 03:52 36.9 14 Mechanical Ventilator Intake and Output 04/04/16 04/04/16 04/05/16 Cumulative From/Thru 15:00 23:00 07:00 03/29/16 16:49 - 04/05/16 05:45 Intake Total 990 ml 1009 ml 38162 ml Output Total 4150 ml 950 ml 61354 ml Balance -3160 ml 59 ml 6354 ml Intake Oral 0 ml 0 ml IV Total 990 ml 1009 ml 63186 ml Tube Feeding 126 ml Tube Irrigant 30 ml Output Urine Total 4000 ml 800 ml 27636 ml Gastric Drainage Total 150 ml 150 ml 1780 ml # Bowel Movements 0 Exam Intubated and sedated. Normal scalp. Endotracheal tube in place. Neck is supple Lungs are clear with prolonged expiratory phase and expiratory wheezing. Heart is regular. No murmur Abdomen is soft. Extremities with 1+ edema. Good pedal pulses. Skin is free of bruises. There is a right IJ line. IVs and Medications Medications Reviewed: Medications were reviewed in detail Lab and Diagnostics Result Diagram: 04/05/16 0510 04/05/16 0510 X-Rays, CTs and MRIs Chest x-ray pending Assessment & Plan This is a 45 year old female with history of asthma and polysubstance abuse who presented in acute respiratory failure: 1. Acute hypoxic respiratory failure, POA. She was having problems with stacking yesterday. She has a smaller tidal volume and a sore respiratory rate. She appears to be doing better with this. She is still requiring deep sedation. No anticipated changes with her today. With regard to vent settings and sedation. She continues to have very tight lungs with obstructive flow. Her FiO2 is 60% with a tidal via of 350 and a rate of 12. With these settings she appears not to be stacking. 2. Status asthmaticus. POA. We will continue methylprednisolone as well as her bronchodilators and a more frequent basis today. She remains relatively bronchospastic. She continues to be quite tight. Situation was revealed with supervisory clerk today. The patient continues to have a very poor flow curve with regards to her expiratory obstruction. He also notes that she is feeling to reach and tidal on her CO2 monitor. At this point she is maximized on all of the standard treatment. We will continue to support her on the current medical regimen and ventilator. As above 3. Rhinovirus, URI. POA. Supportive care. Improving. 4. Positive blood culture, probable coag negative staph: This is felt to be a contaminant. -Vancomycin has been discontinued. No further fevers. 5. Lactic acidosis, airway. Resolved: -Lactic acid is 1.2. -Lactated ringers discontinued as patient is 5 liters up. 6. Elevated troponin on the POA.: -.Troponins: 053 --> .234 --> .122 -Echocardiogram showed EF of 40-45% (possible chronic systolic heart failure) and severe hypokinesis globally. No further workup at this time until she stabilizes. 7. Polysubstance abuse on the POA: -Tox screen positive for methamphetamine, benzodiazepines, and cannabinoids. -Continue to watch for signs of withdrawal, the Ativan has been titrated up as a drip to cover for possible benzodiazepine withdrawal symptoms.. 8. Retrieval of PICC line from there are no postoperative competitions 9. FEN. We will consider instituting TPN today. DVT prophylaxis with subq heparin GI prophylaxis with famotidine. Pain Evaluation: Adequate Pain Control VTE Mechanical Devices: Intermittant Pneumatic CD Resuscitation Status: CPR: Attempt Resuscitation Time spent 20 minutes Jamir Rodrigues MD Apr 05, 2016 07:25
[2016-04-05] MEDS: MethylprednisoLONE Sodium Succinate 62.5 mg/mL 2 mL Inj IVPUSH SCH ×2 (08:30→16:30)
[2016-04-05] MEDS: Heparin 5,000 Unit/mL Inj SUBQ SCH ×2 (08:30→16:30)
[2016-04-05] MEDS: Famotidine Inj 20 MG in IV Premix 1 EACH IV SCH ×2 (08:30→20:36)
[2016-04-05] MEDS: Senna-Docusate 8.6-50 mg Tablet PO SCH ×2 (08:30→20:35)
[2016-04-05] MEDS: Furosemide 10 mg/mL 4 mL Inj IVPUSH SCH (08:30)
--- NOTE | 2016-04-05 08:38 | DRSVH ---
PROCEDURE: X-RAY CHEST ONE VIEW, PORTABLE ([id number]) INDICATIONS: 45-year-old female on ventilator. TECHNIQUE: One view of the chest was acquired. COMPARISON: [facility], CR, XR CHEST 1VW (PORTABLE), 04/04/2016, 18:10. [facility], CR, XR CHEST 1VW (PORTABLE), 04/04/2016, 8:49. [facility], CR, XR CHEST 1VW (PORT ABLE), 04/02/2016, 4:16. FINDINGS: Surgical changes and devices: Endotracheal tube and right internal jugular central venous catheter ar e again noted. Nasogastric tube also remains in expected position. Lungs and pleura: No pleural effusions or pneumothorax. Lungs are clear. Mediastinum: Mediastinal contours appear normal. Heart size is normal. Bones and chest wall: No suspicious bony lesions. Overlying soft tissues appear unremarkable. IMPRESSION: No acute cardiopulmonary disease. Endotracheal tube remains in expected position. Dictated by: Kristopher Iglesias M.D. on 04/05/2016 at 8:36 Approved by: Kristopher Iglesias M.D. on 04/05/2016 at 8:36
--- NOTE | 2016-04-05 10:31 | PCM.PNMED ---
Subjective Date of Service Apr 05, 2016 Subjective This is a 45 year old female with history of polysubstance abuse and asthma who presented to the hospital after being intubated in the field due to acute respiratory failure. She had initially developed URI symptoms for several weeks. She is positive for rhinovirus. Urine tox positive for methamphetamines , benzodiazepines, and cannabinoids. History of recent cocaine use and distant alcoholism. The patient remains intubated and sedated. PICC placed yesterday was surgically removed. After surgery patient's sats dropped and FiO2 increased with good response.. She continues to have airway resistance today which has been occurring throughout her hospital stay. ROS was not able to be obtained due to intubation and sedation. Exam Vital Signs Vital Sign - Last Date Time Temp Pulse Resp B/P Pulse Ox O2 Delivery O2 Flow Rate FiO2 04/05/16 09:15 110/58 04/05/16 07:20 94 96 60 04/05/16 03:52 36.9 14 Mechanical Ventilator Intake and Output 04/04/16 04/04/16 04/05/16 Cumulative From/Thru 14:59 22:59 06:59 03/29/16 16:49 - 04/05/16 05:45 Intake Total 990 ml 1009 ml 84697 ml Output Total 4150 ml 950 ml 25136 ml Balance -3160 ml 59 ml 6354 ml Intake Oral 0 ml 0 ml IV Total 990 ml 1009 ml 47896 ml Tube Feeding 126 ml Tube Irrigant 30 ml Output Urine Total 4000 ml 800 ml 21594 ml Gastric Drainage Total 150 ml 150 ml 1780 ml # Bowel Movements 0 Exam General: intubated and sedated HEENT: Normocephalic, atraumatic. External ears without defect. Neck: No lymphadenopathy or thyromegaly. Right IJ in place Cardiovascular: Regular rate and rhythm with no murmurs, rubs, or gallops appreciated Pulmonary: Coarse breath sounds, wheezing bilaterally with crackles. Abdomen: Bowel tones present. Soft, nondistended. No hepatosplenomegaly or masses appreciated. Extremities: No clubbing, cyanosis, edema, or lymphadenopathy appreciated. Skin: Normal temperature, turgor, and texture; no rash or subcutaneous nodules appreciated. Minor wounds noted on lower extremities Neurological: Patient is sedated. She is not responding to commands currently. Psychiatric: Intubated and sedated. Lab and Diagnostics Result Diagram: 04/05/16 0510 04/05/1610 X-Rays, CTs and MRIs Chest x-ray on 04/05/2016: IMPRESSION: No acute cardiopulmonary disease. Endotracheal tube remains in expected position. Dictated by: Kristopher Iglesias M.D. on 04/05/2016 at 8:36 Assessment & Plan This is a 45 year old female with history of asthma and polysubstance abuse who presented in acute respiratory failure: Status asthmaticus: -Continues to be bronchospastic. -Continue on duonebs q4h and albuterol q4h alternating. -Continue on solumedrol 125mg q8h. -Continue with sedation. We will continue to try to come down on propofol. Positive blood culture, probable coag negative staph: -Vancomycin has been discontinued. Lactic acidosis, resolved: -Lactic acid on 03/31/2016 1.3. Elevated troponin: -.Troponins: 053 --> .234 --> .122 -Echocardiogram showed EF of 40-45% and severe hypokinesis globally. Polysubstance abuse: -Tox screen positive for methamphetamine, benzodiazepines, and cannabinoids. -Continue to watch for signs of withdrawal. FEN: -Continue Lasix 40mg IV daily. -Will try enteral feeds again today. If she does not tolerate will start TPN. DVT prophylaxis with subq heparin GI prophylaxis with famotidine. VTE Mechanical Devices: Intermittant Pneumatic CD Resuscitation Status: CPR: Attempt Resuscitation Attending Statement The patient was seen and examined together with Dr. Lara on 04/05/2016 and I agree with the history, exam and plan as outlined in the note above. Yuri Lara DO Apr 05, 2016 10:30 Eh Mehta MD May 03, 2016 17:16 volume, though we will be unable to do this because of the air trapping. Will have to continue with the relatively heavy sedation, though it actually is not too too bad at this point. Will need to continue the current regimen of bronchodilators with aggressive beta agonists, antimuscarinics, and steroids. 2. The patient is about 4.5 liters positive in fluid. Suspect she was relatively dry when she came in. No evidence of hypovolemia on admission. Even though she appear somewhat dry, would suspect that a trial of Lasix might be in order as she might have some fluid retention in the lung causing us some of our problems. Will discuss with primary. PLAN: 1. Continue aggressive bronchodilators. 2. Unfortunately we need to continue the IV sedation as we are ventilating her at a low tidal volume. 3. Consider furosemide IV 20 mg a day. 1. Acute hypoxic respiratory failure, POA. She was having problems with stacking yesterday. She has a smaller tidal volume and a sore respiratory rate. She appears to be doing better with this. She is still requiring deep sedation. No anticipated changes with her today. With regard to vent settings and sedation. She continues to have very tight lungs with obstructive flow. Her FiO2 is 60% with a tidal via of 350 and a rate of 12. With these settings she appears not to be stacking. 2. Status asthmaticus. POA. We will continue methylprednisolone as well as her bronchodilators and a more frequent basis today. She remains relatively bronchospastic. She continues to be quite tight. Situation was revealed with tobacco dipper today. The patient continues to have a very poor flow curve with regards to her expiratory obstruction. He also notes that she is feeling to reach and tidal on her CO2 monitor. At this point she is maximized on all of the standard treatment. We will continue to support her on the current medical regimen and ventilator. As above 3. Rhinovirus, URI. POA. Supportive care. Improving. 4. Positive blood culture, probable coag negative staph: This is felt to be a contaminant. -Vancomycin has been discontinued. No further fevers. 5. Lactic acidosis, airway. Resolved: -Lactic acid is 1.2. -Lactated ringers discontinued as patient is 5 liters up. 6. Elevated troponin on the POA.: -.Troponins: 053 --> .234 --> .122 -Echocardiogram showed EF of 40-45% (possible chronic systolic heart failure) and severe hypokinesis globally. No further workup at this time until she stabilizes. 7. Polysubstance abuse on the POA: -Tox screen positive for methamphetamine, benzodiazepines, and cannabinoids. -Continue to watch for signs of withdrawal, the Ativan has been titrated up as a drip to cover for possible benzodiazepine withdrawal symptoms.. 8. Retrieval of PICC line from there are no postoperative competitions 9. FEN. We will consider instituting TPN today. DVT prophylaxis with subq heparin GI prophylaxis with famotidine. VTE Mechanical Devices: Intermittant Pneumatic CD Resuscitation Status: CPR: Attempt Resuscitation Yuri Lara DO Apr 05, 2016 10:30
--- NOTE | 2016-04-05 10:40 | PCM.PNSURG ---
Subjective Visit Information: Reason for Visit Acute Respiratory Failure,Intubated Surgery/Surgery Date Right upper arm exploration with removal of intravascular foreign body 04/04/2016 Post-Op Day # 1 Date of Admission: Mar 29, 2016 at 17:55 Subjective: Patient heavily sedated, on ventilator. Parents at bedside. Objective Vital Sign- Last 8 Hours Date Time Temp Pulse Resp B/P Pulse Ox O2 Delivery O2 Flow Rate FiO2 04/05/16 09:15 110/58 04/05/16 07:20 94 117/59 96 60 04/05/16 04:49 94 133/78 96 60 04/05/16 03:52 36.9 99 14 126/67 99 Mechanical Ventilator 60 04/05/16 03:52 Ventilator Intake and Output- Last 8 Hour 04/05/16 Cumulative From/Thru 07:00 03/29/16 16:49 - 04/05/16 05:45 Intake Total 1009 ml 29864 ml Output Total 950 ml 42603 ml Balance 59 ml 6354 ml Intake Oral 0 ml 0 ml IV Total 1009 ml 87230 ml Tube Feeding 126 ml Tube Irrigant 30 ml Output Urine Total 800 ml 26221 ml Gastric Drainage Total 150 ml 1780 ml # Bowel Movements 0 SURGICAL WOUND : Wound Location/Description Right upper arm with postop bandage intact with sanguinous discharge, no surrounding erythema or drainage onto overlying Kerlix. Distal arm with radial pulse present and appears well perfused. Result Diagram: 04/05/16 0510 04/05/16 0510 Assessment & Plan Impression Postop day 1 status post Right upper arm exploration with removal of intravascular foreign body. Problems: Plan Dressing change tomorrow. Resuscitation Status: CPR: Attempt Resuscitation Celestina Hernandez PA-C Apr 05, 2016 10:40
--- NOTE | 2016-04-05 13:09 | NUR ---
NUTRITION FOLLOW-UP: ASSESS: 45 YO female admitted to CCU with respiratory distress, status post intubation in the field, likely secondary to asthma exacerbation and rhinovirus infection. She remains intubated in CCU. TF to be re-started today to see if pt will better tolerate today. If pt does not tolerate TF, the plan is to start TPN as pt has been without adequate nutrition x7 days. PMHX: Severe asthma, polysubstance abuse, smoking. LABS: Reviewed. CO2 32, Pediatric Psychiatrist .37, Glu 131, Ca 8.1, ALT 64, alb 3.1 MEDS: Reviewed. Solu-medrol, Lasix, senna, Fentanyl. Propofol currently running at ~14 ml/hr to provide 370 kcal/day. GI: No BM reported since admit SKIN: Alireza 10. Per Teleprinter Installer, there are no wound issues at this time. WT: 67.6 kg, BMI 25.6 kg/m2. Admit weight: 61.1 kg. DIET: NPO x 6 D. ENTERAL FEEDING: Vital 1.5 @ 10 ml/hr to re-start today RE-ESTIMATED NEEDS: vent Calories: 1462-5904 kcal/day (25-30 kcal/kg BW) Protein: 80-100 g/day (1.2-1.5 g/kg BW) Fluid: 0174-9046 ml/day (25-30 cc/kg BW) NUTRITION DIAGNOSIS: 1) Inadequate oral intake related to decreased ability to consume sufficient energy as evidenced by current NPO status - PERSISTS. NUTRITION INTERVENTION: 1) Recommend re-start TF of Vital 1.5 starting at 10 ml/hr. Hold at 73lkg89 hrs. Once tolerance established advance enteral feeding 5 ml every 4 hr. to goal 50 ml/hr, which would provide 1650 kcal (2020kcal w/propofol) and 73 g protein/day (100% kcal and 92% pro needs). Flush 40ml q 4 hrs. If IVF stopped, flush 95ml q 3 hrs. 2) Once at goal rate, recommend add 1 packet prosource to better meet protein needs. 3) Adjust goal rate based on propofol rate 4) If enteral feeding unable to be restarted/not tolerated, recommend initial TPN of 100 g Dex, 60 g AA, 10 g lipids providing 680 (TPN + Propofol = 1050 kcal), 60 g protein per day; meeting 86% calorie, 63% protein needs. Recommend starting at reduced rate due to prolonged NPO status with possible refeeding syndrome risk. 5) Once TPN tolerance established and propofol off, advance to goal TPN of 250 g Dex, 100 g AA, 35 g lipids providing 1600 kcal, 100 g protein; meeting 100% of calorie/protein needs. Adjust goal based on Propofol rate MONITOR/EVALUATE: NPO/vent status, TF vs TPN, labs, wt, GI, POC, nutrition status. Follow per high nutrition risk guidelines. Addendum: 04/06/16 at [address] Pt tolerating trickle tube feeding. Will begin advancing 5 ml q 4 hrs to goal rate of Vital 1.5 @ 50 ml/hr.
[2016-04-05] MEDS: Budesonide 0.5 mg/2 mL Inhalation Solution NEB SCH ×2 (13:19→20:11)
--- NOTE | 2016-04-05 18:00 | NUR ---
Sedation titrated as mukund / Nutrition Fentanyl gtt titrated down to 100mcg/hr (from 175mcg this a.m.) Lorazepam down to 2mg/hr (from 4mg this a.m.) Propofol down to 30mcg/kg/min (was 40mcg this a.m.) Also tried down to 20mcg for total of 45min midday; pt began stacking resps again so increased to 30mcg/kg/min ->no further stacking noted. Plan to continue to reduce Propofol & Lorazepam as mukund. Trickle Tube feed started mid-afternoon: trickle rate of 10/hr Vital formula as ordered. Pt's Mother & Father @ bedside this morning; updated.
[2016-04-05] MEDS: Dextrose 5% 0.9% NaCl 1,000 ML IV SCH (20:36)
[2016-04-05] MEDS: LORazepam Inj 100 MG in 0.9% Sodium Chloride 50 ML IV SCH (21:57)
[2016-04-06] VITALS (16 sets, daily range): BP systolic 96–175; BP diastolic 51–98; PULSE 90–105; RESP 12–18; O2SAT 92–100
[2016-04-06] MEDS: Chlorhexidine 0.12% 15 mL Oral Solution MT SCH ×7 (00:04→23:24)
[2016-04-06] MEDS: Heparin 5,000 Unit/mL Inj SUBQ SCH ×3 (00:04→18:00)
[2016-04-06] MEDS: MethylprednisoLONE Sodium Succinate 62.5 mg/mL 2 mL Inj IVPUSH SCH ×3 (00:04→18:00)
[2016-04-06] MEDS: Propofol Inj 1,000,000 MCG in IV Premix 1 EACH IV SCH ×2 (00:06→18:00)
[2016-04-06] MEDS: Albuterol-Ipratropium 3 mL Inhalation Solution NEB SCH ×6 (00:37→21:34)
[2016-04-06] MEDS: Insulin Human REGular 300 Unit/3 mL Inj - Low SUBQ SCH ×4 (02:30→20:28)
[2016-04-06] MEDS: Albuterol 0.5% (5mg/mL) 20 mL Inhalation Solution NEB SCH ×7 (03:06→23:54)
[2016-04-06 04:06] LABS: EOSINOPHILS % (AUTO) 0 % (0-5); Mean Corpuscular Volume 85.8 fL (81-100); Platelet Count 258 bil/L (150-400)
[2016-04-06 04:34] LABS: BASOPHILS % (AUTO) 0 % (0-3); MONOCYTES % (AUTO) 4 % (4-12); Magnesium 2.1 mg/dL (1.6-2.6); NEUTROPHILS % (AUTO) 83 % (40-74); Phosphorus 4.3 mg/dL (2.5-4.9)
--- NOTE | 2016-04-06 05:09 | ABG ---
DateTimeAnalyzed 05:05:00 -_ pH ____7.413 - 7.350 7.450 pCO2 ___57.2__ -mmHg 35.0 45.0 pO2 113 -mmHg 69.0 116 HCO3- ___35.8__ -mmol/L 22.0 26.0 ABE ____9.7__ -mmol/L -2.0 2.0 tHb ___11.7__ -g/dL O2Hb ___96.4__ -% COHb ____0.7__ -% MetHb ____1.1__ -% sO2 ___98.2__ -% FIO2 ___60.0__ -% PEEP ___12.0__ -cmH2O Vt __350.0__ -L Drawn By AF - Spontaneous_RR ___12.0__ -b/min Oxygen Device 1 VENTILATOR - Notified By AF - Notified Whom ____nurse - B 766 -mmHg tO2 ___16.0__ -Vol% Jamir test _Positive -
--- NOTE | 2016-04-06 05:27 | NUR ---
Respiratory/Nutrition Pt intermittently breath stacks on vent, fio2 0.60/peep 12, sp02 >95%, etcon 44-46, decreased propofol gtt, continued on fentanyl and ativan gtts, RASS -2 to -3, vital signs stable, tolerating trickle tube feeds, no episodes of nausea/vomiting. bilateral soft wrist on. Addendum: 04/06/16 at 0705 by MICHELLE SYED RN addendum: Around 0600, pt desats to 87-88%, increased fio2 to 0.70, sp02 92-93%
[2016-04-06] MEDS: Budesonide 0.5 mg/2 mL Inhalation Solution NEB SCH ×2 (07:12→19:34)
[2016-04-06] MEDS: Senna-Docusate 8.6-50 mg Tablet PO SCH ×2 (08:30→20:27)
[2016-04-06] MEDS: Furosemide 10 mg/mL 4 mL Inj IVPUSH SCH (08:30)
--- NOTE | 2016-04-06 09:10 | DRSVH ---
PROCEDURE: X-RAY CHEST ONE VIEW, PORTABLE ([id number]) INDICATIONS: On vent TECHNIQUE: One view of the chest was acquired. COMPARISON: [facility], CR, XR CHEST 1VW (PORTABLE), 04/05/2016, 2:12. FINDINGS: Surgical changes and devices: Right-sided central venous catheter, endotracheal tube and nasogastric tubes are unchanged. Lungs and pleura: No pleural effusions or pneumothorax. Lungs are clear. Mediastinum: Mediastinal contours appear normal. Heart size is normal. Bones and chest wall: No suspicious bony lesions. Overlying soft tissues appear unremarkable. IMPRESSION: No acute pulmonary process. Stable interval exam compared to 04/05/16. Dictated by: Marina Long M.D. on 04/06/2016 at 9:08 Approved by: Marina Long M.D. on 04/06/2016 at 9:08
[2016-04-06] MEDS: Amoxicillin-Clav 875-125 mg Tablet PO SCH ×2 (09:45→20:27)
[2016-04-06] MEDS: Polyethylene Glycol (PEG) 17 Gm Powder PO SCH ×2 (09:54→20:28)
--- NOTE | 2016-04-06 10:03 | PROG NOTE ---
[address] [address] PROGRESS NOTE PATIENT: OSMANY MARSHALL : 1970 MR#: [id number] ADMIT: 03/29/2016 JOB ID: [id number] DATE: 04/06/2015 Followup for removal of intravascular foreign body. The patient remains intubated. Her dressing has been taken down. Her incision is healing well. There is no wound problem, no hematoma. General Surgery will sign out. Patient's sutures are absorbable, and she will need no general surgery followup.
--- NOTE | 2016-04-06 12:19 | PROG NOTE ---
[address] [address] PROGRESS NOTE PATIENT: OSMANY MARSHALL : 1970 MR#: [id number] ADMIT: 03/29/2016 JOB ID: [id number] DATE: 04/06/2016 PULMONARY CRITICAL CARE PROGRESS NOTE: The patient is a 45-year-old woman with history of polysubstance abuse presenting with asthma exacerbation and acute hypoxic respiratory failure. The patient was seen and evaluated with resident physician, Dr. Rommel Lara. Refer to his separate detailed note for additional information. The following is an addendum. INTERVAL HISTORY: The patient had to be taken to the operating room for an knot in her PICC line a couple of days ago and since then has had more difficulty with high peak pressures and difficulty ventilating. This seems to be settling down today. She has also had episodes of hypoxia with sats dropping into the 80s acutely for no obvious reason. REVIEW OF SYSTEMS: Unable to obtain since patient is intubated. PHYSICAL EXAMINATION: Vital signs reviewed. She is on 60% FiO2 currently and PEEP of 12 cm. I turned the FiO2 down to 40% since her sats were 100%. General: Intubated, sedated, not responding to me. Chest is clear to auscultation. I do not hear any wheezing. LABORATORIES: Reviewed. Notable for WBC 18. Chemistry also reviewed and within normal limits. Arterial blood gas shows pH of 7.41, pCO2 of 57, pO2 of 113 and bicarb of 35. CULTURE DATA: No growth on blood cultures. Respiratory viral PCR is positive only for rhinovirus. IMAGING: Chest x-ray shows hyperinflated lungs but no other acute process or infiltrates. ASSESSMENT AND RECOMMENDATIONS: 1. Acute hypoxic hypercarbic respiratory failure. 2. Acute asthma exacerbation. 3. Intravascular foreign body, status post removal on April 04 -- peripherally inserted central catheter line with knot. 4. History of polysubstance abuse including methamphetamines, cocaine, marijuana. This 45-year-old woman has compensated hypercarbic respiratory failure based on her blood gas and presented with an acute asthma exacerbation requiring mechanical ventilation in the setting of recent methamphetamine, cocaine and marijuana use. Respiratory issues continue to be her primary problem. She is getting aggressive therapy with IV steroids and bronchodilators. Today, she seems to be settling down somewhat. Her x-ray shows no evidence of mucous plugging or infiltrates. I made some changes to her vent -- namely increased her tidal volume since she was breath stacking quite a bit and her tidal volume was rather low for her. Her I:E time is appropriately set for her at 1:5. I decreased her respiratory rate a little bit to allow her to over breathe. Her PEEP is at 12 cm and her total measured PEEP is 14, so auto PEEP does not seem to be a significant issue at this time. We will continue current support. She is on appropriate DVT and GI prophylaxis. CRITICAL CARE TIME: 60 minutes.
--- NOTE | 2016-04-06 13:53 | PCM.PNMED ---
Subjective Date of Service Apr 06, 2016 Subjective Patient is intubated and sedated. ROS and subjective are not obtainable Skull is normal Symmetric pupils Oropharynx with endotracheal tube is in place. Neck is supple. Lungs still and number for diminished breaths and inspiratory and expiratory wheezing with poor air movement. She has a prolonged expiratory phase Heart is distant regular no murmur. Abdomen is distended but not tender. Extremities are notable for 2+ edema, good pedal pulses. She has a right IJ in place Exam Vital Signs Vital Sign - Last Date Time Temp Pulse Resp B/P Pulse Ox O2 Delivery O2 Flow Rate FiO2 04/06/16 13:25 99 137/78 100 40 04/06/16 04:00 37.0 16 Mechanical Ventilator Intake and Output 04/05/16 04/05/16 04/06/16 Cumulative From/Thru 15:00 23:00 07:00 03/29/16 16:49 - 04/06/16 05:07 Intake Total 1151 ml 1036 ml 40510 ml Output Total 3650 ml 900 ml 18815 ml Balance -2499 ml 136 ml 3991 ml Intake Oral 0 ml 0 ml 0 ml IV Total 1151 ml 787 ml 30810 ml Tube Feeding 129 ml 255 ml Tube Irrigant 120 ml 150 ml Output Urine Total 3600 ml 900 ml 19797 ml Gastric Drainage Total 50 ml 0 ml 1830 ml # Bowel Movements 0 IVs and Medications Medications Reviewed: Medications were reviewed in detail Lab and Diagnostics Result Diagram: 04/06/16 0400 04/06/16 0400 X-Rays, CTs and MRIs Chest x-ray on 04/05/2016: IMPRESSION: No acute cardiopulmonary disease. Endotracheal tube remains in expected position. Dictated by: Kristopher Iglesias M.D. on 04/05/2016 at 8:36 Assessment & Plan 1.Status asthmaticus: POA. The patient remains quite bronchospastic and showing minimal improvement despite maximal medical therapy. At this point we will continue maximal medical therapy. She did have purulent sputum which was culture negative and chest x-ray shows no infiltrates. Continue bronchodilators and steroids. 2. Acute hypoxic respiratory failure, POA. She continues to be ventilator dependent at this point due to her severe status asthmaticus. Her ventilator is currently so for low tidal volume and a low respiratory rate to allow her a prolonged time for expiration and to avoid stacking. Her FiO2 is relatively stable. 3. Nutrition. The patient continues on tube feeds. She has been on trickle feeds because of initially having difficulty with reflux in the tube feeds. We will follow this carefully and try to escalate her rate. She is currently dimension and doses of furosemide as she was fluid overloaded as well. 4. Critically ill. Continue DVT and PE prophylaxis. Pain Evaluation: Adequate Pain Control VTE Mechanical Devices: Intermittant Pneumatic CD Resuscitation Status: CPR: Attempt Resuscitation Time spent 35 minutes Jamir Rodrigues MD Apr 06, 2016 13:53
[2016-04-06] MEDS: Methylnaltrexone 12 mg/0.6 mL Inj SUBQ SCH (16:30)
--- NOTE | 2016-04-06 16:53 | PCM.PNMED ---
Subjective Date of Service Apr 06, 2016 Subjective This is a 45 year old female with history of polysubstance abuse and asthma who presented to the hospital after being intubated in the field due to acute respiratory failure. She had initially developed URI symptoms for several weeks. She is positive for rhinovirus. Nasal culture positive for staph. Urine tox positive for methamphetamines, benzodiazepines, and cannabinoids. History of recent cocaine use and distant alcoholism. The patient remains intubated and sedated. She continues to have airway resistance with expiratory collapse today which has been occurring throughout her hospital stay. ROS was not able to be obtained due to intubation and sedation. Exam Vital Signs Vital Sign - Last Date Time Temp Pulse Resp B/P Pulse Ox O2 Delivery O2 Flow Rate FiO2 04/06/16 07:00 101 126/70 100 60 04/06/16 04:00 37.0 16 Mechanical Ventilator Intake and Output 04/05/16 04/05/16 04/06/16 Cumulative From/Thru 15:00 23:00 07:00 03/29/16 16:49 - 04/06/16 05:07 Intake Total 1151 ml 1036 ml 69956 ml Output Total 3650 ml 900 ml 24274 ml Balance -2499 ml 136 ml 3991 ml Intake Oral 0 ml 0 ml 0 ml IV Total 1151 ml 787 ml 67107 ml Tube Feeding 129 ml 255 ml Tube Irrigant 120 ml 150 ml Output Urine Total 3600 ml 900 ml 89949 ml Gastric Drainage Total 50 ml 0 ml 1830 ml # Bowel Movements 0 Exam General: intubated and sedated HEENT: Normocephalic, atraumatic. External ears without defect. Neck: No lymphadenopathy or thyromegaly. Right IJ in place Cardiovascular: Regular rate and rhythm with no murmurs, rubs, or gallops appreciated Pulmonary: Coarse breath sounds, wheezing bilaterally with crackles. Abdomen: Bowel tones present. Soft, nondistended. No hepatosplenomegaly or masses appreciated. Extremities: No clubbing, cyanosis, edema, or lymphadenopathy appreciated. Skin: Normal temperature, turgor, and texture; no rash or subcutaneous nodules appreciated. Minor wounds noted on lower extremities Neurological: Patient is sedated. She is not responding to commands currently. Psychiatric: Intubated and sedated. Lab and Diagnostics Result Diagram: 04/06/16 0400 04/06/16 0400 X-Rays, CTs and MRIs Chest x-ray on 04/05/2016: IMPRESSION: No acute cardiopulmonary disease. Endotracheal tube remains in expected position. Dictated by: Kristopher Iglesias M.D. on 04/05/2016 at 8:36 Assessment & Plan This is a 45 year old female with history of asthma and polysubstance abuse who presented in acute respiratory failure: Status asthmaticus: -Continues to be bronchospastic. -Continue on duonebs q4h and albuterol q4h alternating. Budesonide q6h added. -Continue on solumedrol 125mg q8h. -Continue with sedation. Sinusitis: -Purulent green nasal discharge cultured and positive for staph. Negative MRSA screen. -Augmentin day 1. Lactic acidosis, resolved: -Lactic acid on 03/31/2016 1.3. Elevated troponin: -.Troponins: 053 --> .234 --> .122 -Echocardiogram showed EF of 40-45% and severe hypokinesis globally. Polysubstance abuse: -Tox screen positive for methamphetamine, benzodiazepines, and cannabinoids. -Continue to watch for signs of withdrawal. FEN: -Continue Lasix 40mg IV daily. -Tolerating feed tubing. Will advance. DVT prophylaxis with subq heparin GI prophylaxis with famotidine. VTE Mechanical Devices: Intermittant Pneumatic CD Resuscitation Status: CPR: Attempt Resuscitation Attending Statement I have seen and examined this patient with the resident physician. Vital signs , labs, imaging have been reviewed. I agree with the assessment and plan above. Please refer to my separately dictated progress note for any modifications to above. Carmen Terry M.D. Pulmonary and Critical Care medicine Pager [phone] Yuri Lara DO Apr 06, 2016 10:50 Carmen Terry MD Apr 07, 2016 14:44
[2016-04-06] MEDS ORDERED: MetoCLOpramide 5 mg/mL 2 mL Inj IVPUSH SCH (17:00)
[2016-04-06] MEDS: MetoCLOpramide 5 mg/mL 2 mL Inj IVPUSH SCH ×2 (17:50→23:22)
[2016-04-06] MEDS: Dextrose 5% 0.9% NaCl 1,000 ML IV SCH (18:00)
--- NOTE | 2016-04-06 19:00 | NUR ---
emesis x2/Reglan admin/TF on hold mid afternoon & @ 1800 pt with tube feeding of approx 50cc ea time suctioned from mouth. OGT placed immed to LCsx with 115cc residual suctioned out. No evidence of ET cuff leak or suctioning TF via ETT. Reglan administered after first emesis. Hypoactive BTs, abd soft. Miralax given via OGT today; no stool. For pt safety, Tube feed currently placed on hold. Continue to follow closely, aspiration precautions followed strictly.
[2016-04-06] MEDS: Polyethylene Glycol (PEG) 17 Gm Powder PO PRN (19:55)
[2016-04-06] MEDS: fentaNYL 2,500 mCg/250 mL 2,500 MCG in IV Premix 1 EACH IV PRN (19:55)
[2016-04-06] MEDS: LORazepam Inj 100 MG in 0.9% Sodium Chloride 50 ML IV SCH (23:21)
[2016-04-07] VITALS (14 sets, daily range): BP systolic 107–148; BP diastolic 51–95; PULSE 97–126; RESP 10–20; O2SAT 90–99
[2016-04-07] MEDS: Propofol Inj 1,000,000 MCG in IV Premix 1 EACH IV SCH ×3 (00:33→16:47)
[2016-04-07] MEDS: MethylprednisoLONE Sodium Succinate 62.5 mg/mL 2 mL Inj IVPUSH SCH ×4 (00:33→23:45)
[2016-04-07] MEDS: Heparin 5,000 Unit/mL Inj SUBQ SCH ×4 (01:52→23:52)
[2016-04-07] MEDS: Insulin Human REGular 300 Unit/3 mL Inj - Low SUBQ SCH ×5 (01:56→23:53)
[2016-04-07] MEDS: Albuterol-Ipratropium 3 mL Inhalation Solution NEB SCH ×6 (02:12→20:30)
[2016-04-07] MEDS: Albuterol 0.5% (5mg/mL) 20 mL Inhalation Solution NEB SCH ×5 (04:04→22:10)
--- NOTE | 2016-04-07 05:43 | ABG ---
DateTimeAnalyzed 05:38:00 -_ pH ____7.427 - 7.350 7.450 pCO2 ___52.5__ -mmHg 35.0 45.0 pO2 ___80.4__ -mmHg 69.0 116 HCO3- ___34.0__ -mmol/L 22.0 26.0 ABE ____8.5__ -mmol/L -2.0 2.0 tHb ___11.8__ -g/dL O2Hb ___94.1__ -% COHb ____0.9__ -% MetHb ____1.2__ -% sO2 ___96.1__ -% FIO2 ___40.0__ -% PRVC 10 - PEEP ___12.0__ -cmH2O Vt __470.0__ -L Drawn By blf - Date/Time Notified____ 05:43:00 -_ Spontaneous_RR ___13.0__ -b/min Oxygen Device 1 VENTILATOR - Notified By blf - Notified Whom MICHELLE SYED RN - B 759 -mmHg tO2 ___15.7__ -Vol% Jamir test N/A -
[2016-04-07] MEDS: MetoCLOpramide 5 mg/mL 2 mL Inj IVPUSH SCH ×4 (05:45→23:45)
[2016-04-07] MEDS: Chlorhexidine 0.12% 15 mL Oral Solution MT SCH ×6 (05:45→23:45)
[2016-04-07 06:16] LABS: EOSINOPHILS % (AUTO) 0 % (0-5); Mean Corpuscular Hemoglobin 26.9 pg (27.0-35.0); Mean Corpuscular Volume 85.6 fL (81-100); Platelet Count 235 bil/L (150-400)
--- NOTE | 2016-04-07 06:21 | NUR ---
Respiratory/Nutrition Pt on vent, fio2 0.40/peep 12, sp02 92-94%, etco2 44-46, tapered propofol and ativan gtts, continued on fentanyl gtt,RASS -2 to -3, vital signs stable. Am abg w/ ph 7.42, pco2 52.5, p02 80, hc03 34. Tolerating trickle tube feeds, no nausea/vomiting. Bilateral soft wrist on.
[2016-04-07 06:42] LABS: Phosphorus 4.4 mg/dL (2.5-4.9)
[2016-04-07] MEDS: Budesonide 0.5 mg/2 mL Inhalation Solution NEB SCH ×2 (07:30→19:29)
--- NOTE | 2016-04-07 07:47 | PCM.PNMED ---
Subjective Date of Service Apr 07, 2016 Subjective Patient is intubated and sedated. No ROS subjective or obtainable Exam Vital Signs Vital Sign - Last Date Time Temp Pulse Resp B/P Pulse Ox O2 Delivery O2 Flow Rate FiO2 04/07/16 07:34 96 125/78 98 40 04/07/16 04:29 36.9 13 Mechanical Ventilator Intake and Output 04/06/16 04/06/16 04/07/16 Cumulative From/Thru 15:00 23:00 07:00 03/29/16 16:49 - 04/07/16 05:15 Intake Total 919 ml 93334 ml Output Total 850 ml 68381 ml Balance 69 ml 4060 ml Intake Oral 0 ml IV Total 698 ml 37704 ml Tube Feeding 81 ml 336 ml Tube Irrigant 140 ml 290 ml Output Urine Total 850 ml 84892 ml Gastric Drainage Total 0 ml 1830 ml # Bowel Movements 1 1 Exam Intubated. No distress. Normal skeletal Neck is supple Lungs are clear with a prolonged expiratory phase and respiratory rate of 10. FiO2 40%. Total volume of 470. Peak pressures of 39 Heart is regular without murmur Abdomen is soft Extremities notable for 1+ edema Skin is free of rash or lesions IVs and Medications Medications Reviewed: Medications were reviewed in detail Lab and Diagnostics Result Diagram: 04/06/16 0400 04/07/16 0525 X-Rays, CTs and MRIs Chest x-ray on 04/05/2016: IMPRESSION: No acute cardiopulmonary disease. Endotracheal tube remains in expected position. Dictated by: Kristopher Iglesias M.D. on 04/05/2016 at 8:36 Assessment & Plan 1.Status asthmaticus: POA. The patient remains quite bronchospastic and showing minimal improvement despite maximal medical therapy. At this point we will continue maximal medical therapy. She did have purulent sputum which are now growing staph aureus with IDs pending. And chest x-ray shows no infiltrates. Continue bronchodilators and steroids. 2. Acute hypoxic respiratory failure, POA. She continues to be ventilator dependent at this point due to her severe status asthmaticus. Her ventilator is currently so for low tidal volume and a low respiratory rate to allow her a prolonged time for expiration and to avoid stacking. Her FiO2 is relatively stable. Her rate has been turned down to 10 with a tidal volume of 470 and a prolonged expiratory phase that continues to defer obstructive pulmonary disease. 3. Nutrition. The patient continues on tube feeds. She has been on trickle feeds because of initially having difficulty with reflux in the tube feeds. We will follow this carefully and try to escalate her rate. She is currently dimension and doses of furosemide as she was fluid overloaded as well. 4. Critically ill. Continue DVT and PE prophylaxis. Pain Evaluation: Adequate Pain Control VTE Mechanical Devices: Intermittant Pneumatic CD Resuscitation Status: CPR: Attempt Resuscitation Pain Evaluation: Adequate Pain Control VTE Mechanical Devices: Intermittant Pneumatic CD Resuscitation Status: CPR: Attempt Resuscitation Time spent 20 minutes Jamir Rodrigues MD Apr 07, 2016 07:47
[2016-04-07 07:54] LABS: BASOPHILS % (AUTO) 0 % (0-3); MONOCYTES % (AUTO) 5 % (4-12); NEUTROPHILS % (AUTO) 84 % (40-74)
[2016-04-07] MEDS: Pantoprazole 4 mg/mL 10 mL Inj IVPUSH SCH (08:00)
[2016-04-07] MEDS: Furosemide 10 mg/mL 4 mL Inj IVPUSH SCH ×2 (08:01→20:34)
[2016-04-07] MEDS: Senna-Docusate 8.6-50 mg Tablet PO SCH ×2 (08:02→20:35)
[2016-04-07] MEDS: Amoxicillin-Clav 875-125 mg Tablet PO SCH ×2 (08:02→20:35)
[2016-04-07] MEDS: Polyethylene Glycol (PEG) 17 Gm Powder PO SCH ×2 (08:04→20:35)
--- NOTE | 2016-04-07 08:54 | DRSVH ---
PROCEDURE: X-RAY CHEST ONE VIEW, PORTABLE ([id number]) INDICATIONS: On vent TECHNIQUE: One view of the chest was acquired. COMPARISON: 04/06/2016 FINDINGS: Surgical changes and devices: Endotracheal tube, nasogastric tube and right IJ central venous cathete r all appear unchanged. Lungs and pleura: No pleural effusions or pneumothorax. Lungs are clear. Mediastinum: Mediastinal contours appear normal. Heart size is normal. Bones and chest wall: No suspicious bony lesions. Overlying soft tissues appear unremarkable. IMPRESSION: No acute cardiopulmonary abnormality or interval change. Support lines in place. Dictated by: Wilman Morejon M.D. on 04/07/2016 at 8:52 Approved by: Wilman Morejon M.D. on 04/07/2016 at 8:52
--- NOTE | 2016-04-07 12:55 | PROG NOTE ---
[address] [address] PROGRESS NOTE PATIENT: OSMANY MARSHALL : 1970 MR#: [id number] ADMIT: 03/29/2016 JOB ID: [id number] DATE: 04/07/2016 SUBJECTIVE: The patient was seen and evaluated with resident physician, Yuri Lara DO. Refer to his separate detailed note for additional information. The following is an addendum. The patient is a 45-year-old woman with history of polysubstance abuse presenting with asthma exacerbation and acute respiratory failure. INTERVAL HISTORY: Respiratory status seems to be stabilizing overnight. She had an episode of emesis yesterday. REVIEW OF SYSTEMS: Unable to obtain. PHYSICAL EXAMINATION: Vital signs reviewed. She is on 40% FiO2 on the vent. PEEP of 12 cm. Tidal volume 470. General: Intubated, sedated. Not following commands. Chest: Clear to auscultation. No wheezing. LABORATORIES: Reviewed. Notable for WBC stable at 18. Chemistries stable. Cultures: Nasal swab growing Staph aureus. Chest x-ray: Clear pulmonary parenchyma. ET tube is high but was advanced previously by RT. ASSESSMENT: 1. Acute hypoxic hypercarbic respiratory failure. 2. Acute asthma exacerbation. 3. Intravascular foreign body status post removal on April 04-PICC line with knot. 4. History of polysubstance abuse including methamphetamine, cocaine, and marijuana. RECOMMENDATIONS: A 45-year-old woman with history of methamphetamine, cocaine, and marijuana use presenting with acute on chronic hypercarbic respiratory failure and asthma exacerbation. She has had a michael course as far as her respiratory issues and problems with auto PEEP and difficulty ventilating. She seems to be stabilizing over the last couple of days and I would like to decrease her high-dose steroids from 125 down to 60 mg IV q.8 h. Will continue the bronchodilator therapy. Her x-ray continues to look clear. She is getting Augmentin for suspected sinusitis with Staphylococcus aureus. From a vent standpoint today her auto PEEP seems to have resolved, so we are slowly trending down her PEEP as tolerated. Goal is to get down to 5 cm of PEEP if tolerated and try pressure support. She is on appropriate DVT and GI prophylaxis. Given the degree of hyperinflation I see on imaging and the preexisting chronic respiratory failure in a 45-year-old, I think we should rule out alpha one antitrypsin, so we will check that tomorrow morning. critical care time 50 minutes MTDD
[2016-04-07] MEDS: Dextrose 5% 0.9% NaCl 1,000 ML IV SCH (14:40)
--- NOTE | 2016-04-07 18:13 | PCM.PNMED ---
Subjective Date of Service Apr 07, 2016 Subjective This is a 45 year old female with history of polysubstance abuse and asthma who presented to the hospital after being intubated in the field due to acute respiratory failure. She had initially developed URI symptoms for several weeks. She is positive for rhinovirus. Nasal culture positive for staph. Urine tox positive for methamphetamines, benzodiazepines, and cannabinoids. History of recent cocaine use and distant alcoholism. The patient remains intubated and sedated. She continues to have airway resistance with expiratory collapse today which has been occurring throughout her hospital stay. One episode of emesis yesterday evening. Reglan started. ROS was not able to be obtained due to intubation and sedation. Exam Vital Signs Vital Sign - Last Date Time Temp Pulse Resp B/P Pulse Ox O2 Delivery O2 Flow Rate FiO2 04/07/16 07:48 36.8 97 10 125/78 97 Mechanical Ventilator 40 Intake and Output 04/06/16 04/06/16 04/07/16 Cumulative From/Thru 15:00 23:00 07:00 03/29/16 16:49 - 04/07/16 05:15 Intake Total 919 ml 22510 ml Output Total 850 ml 09707 ml Balance 69 ml 4060 ml Intake Oral 0 ml IV Total 698 ml 39886 ml Tube Feeding 81 ml 336 ml Tube Irrigant 140 ml 290 ml Output Urine Total 850 ml 44161 ml Gastric Drainage Total 0 ml 1830 ml # Bowel Movements 1 1 Exam General: intubated and sedated HEENT: Normocephalic, atraumatic. External ears without defect. Neck: No lymphadenopathy or thyromegaly. Right IJ in place Cardiovascular: Regular rate and rhythm with no murmurs, rubs, or gallops appreciated Pulmonary: Wheezing bilaterally but decreased from yesterday. Abdomen: Bowel tones present. Soft, nondistended. No hepatosplenomegaly or masses appreciated. Extremities: No clubbing, cyanosis, edema, or lymphadenopathy appreciated. Skin: Normal temperature, turgor, and texture; no rash or subcutaneous nodules appreciated. Minor wounds noted on lower extremities Neurological: Patient is sedated. She is not responding to commands currently. Psychiatric: Intubated and sedated. Lab and Diagnostics Result Diagram: 04/07/1625 04/07/16524 X-Rays, CTs and MRIs Chest x-ray on 04/05/2016: IMPRESSION: No acute cardiopulmonary disease. Endotracheal tube remains in expected position. Dictated by: Kristopher Iglesias M.D. on 04/05/2016 at 8:36 Assessment & Plan This is a 45 year old female with history of asthma and polysubstance abuse who presented in acute respiratory failure: Status asthmaticus: -Continues to be bronchospastic. -Continue on duonebs and albuterol. Budesonide q6h. -Continue on solumedrol 60 mg q8h. -Continue with sedation. Sinusitis: -Purulent green nasal discharge cultured and positive for staph. Negative MRSA screen on admit. -Augmentin day 2. Lactic acidosis, resolved: -Lactic acid on 03/31/2016 1.3. Elevated troponin: -.Troponins: 053 --> .234 --> .122 -Echocardiogram showed EF of 40-45% and severe hypokinesis globally. Polysubstance abuse: -Tox screen positive for methamphetamine, benzodiazepines, and cannabinoids. -Continue to watch for signs of withdrawal. FEN: -Increased Lasix to 40mg IV BID. She is +4liters during hospital stay. -Tolerating feed tubing. Will advance. DVT prophylaxis with subq heparin GI prophylaxis with Protonix. VTE Mechanical Devices: Intermittant Pneumatic CD Resuscitation Status: CPR: Attempt Resuscitation Attending Statement I have seen and examined this patient with the resident physician. Vital signs , labs, imaging have been reviewed. I agree with the assessment and plan above. Please refer to my separately dictated progress note for any modifications to above. Carmen Terry M.D. Pulmonary and Critical Care medicine Pager [phone] Yuri Lara DO Apr 07, 2016 09:54 Carmen Terry MD Apr 10, 2016 12:28
--- NOTE | 2016-04-07 18:23 | DRSVH ---
PROCEDURE: X-RAY CHEST ONE VIEW, PORTABLE ([id number]) INDICATIONS: DESATURATION/SHORTNESS OF BREATH TECHNIQUE: One view of the chest was acquired. COMPARISON: [facility], CR, XR CHEST 1VW (PORTABLE), 04/07/2016, 5:30. FINDINGS: Surgical changes and devices: site monitor leads are seen over the chest. There is an endotracheal tube is 5.7 cm above the latasha. There is a right internal jugular central catheter with the tip at the level of the right hilum. There is an NG tube into the stomach. Vascular clips suggest cholecyste ctomy. Lungs and pleura: No pleural effusions or pneumothorax. Lungs are clear. Mediastinum: Mediastinal contours appear normal. Heart size is normal. Bones and chest wall: No suspicious bony lesions. Overlying soft tissues appear unremarkable. IMPRESSION: No acute disease is seen in the upright portable chest. Tubes and lines are appropriate i n position. Dictated by: Vadim Cornell M.D. on 04/07/2016 at 18:21 Approved by: Vadim Cornell M.D. on 04/07/2016 at 18:21
--- NOTE | 2016-04-07 18:36 | NUR ---
Ventilator/tube feeding Vent pressure support trail this afternoon patient tolerated PS well- oxygen saturation remained 91-93% with RR 12-16. Consulted with RT and MD and oxygen saturation at 91-93% was acceptable per attending geothermal field technician. At around 1650 today oxygen saturation decreased to 85-86% without any changes in patient care/status- patient was suctioned on 100% FIO2 with no change in oxygen saturation and only scares clear thin recreations aspirated through ET tube- RT and attending MD were consulted- portable chest X-ray was obtained and ventilator changes were made by RT per MD instructions- PEEP increased to 14 and FIO2 to 45%- oxygen saturation increased to 91-93%. Increased gastric residuals throughout the shift at [phone]- MD aware- continue feeding at 10ml/h with 40ml Q4h H20 flush- HOB up at all times, continue assessment. Addendum: 04/07/16 at 1844 by JOVAN MOTA RN Correction: gastric residuals were 100-75-185 during the shift.
[2016-04-07] MEDS: fentaNYL 2,500 mCg/250 mL 2,500 MCG in IV Premix 1 EACH IV PRN (20:34)
[2016-04-07] MEDS: LORazepam Inj 100 MG in 0.9% Sodium Chloride 50 ML IV SCH (23:45)
[2016-04-08] VITALS (11 sets, daily range): BP systolic 96–164; BP diastolic 57–99; PULSE 83–112; RESP 11–22; O2SAT 93–96
[2016-04-08] MEDS: Albuterol-Ipratropium 3 mL Inhalation Solution NEB SCH ×5 (00:18→16:30)
[2016-04-08] MEDS: Albuterol 0.5% (5mg/mL) 20 mL Inhalation Solution NEB SCH ×4 (02:46→22:25)
[2016-04-08] MEDS: Propofol Inj 1,000,000 MCG in IV Premix 1 EACH IV SCH (02:48)
[2016-04-08] MEDS: Chlorhexidine 0.12% 15 mL Oral Solution MT SCH ×3 (04:08→11:27)
[2016-04-08 04:39] LABS: BASOPHILS % (AUTO) 0.1 % (0-3); EOSINOPHILS % (AUTO) 0 % (0-5); MONOCYTES % (AUTO) 5.3 % (4-12); Mean Corpuscular Hemoglobin 26.8 pg (27.0-35.0); NEUTROPHILS % (AUTO) 87.9 % (40-74); Platelet Count 246 bil/L (150-400)
[2016-04-08 04:50] LABS: Magnesium 1.9 mg/dL (1.6-2.6); Phosphorus 3.9 mg/dL (2.5-4.9)
[2016-04-08] MEDS: MetoCLOpramide 5 mg/mL 2 mL Inj IVPUSH SCH (06:03)
--- NOTE | 2016-04-08 08:20 | DRSVH ---
PROCEDURE: X-RAY CHEST ONE VIEW, PORTABLE ([id number]) INDICATIONS: On vent TECHNIQUE: One view of the chest was acquired. COMPARISON: [facility], CR, XR CHEST 1VW (PORTABLE), 04/07/2016, 17:36. FINDINGS: Surgical changes and devices: Endotracheal tube with the tip seen 6.5 cm above the latasha. There is a right internal jugular central venous catheter with the tip projecting in the lower SVC as before Lungs and pleura: No pleural effusions or pneumothorax. Lungs are clear. Mediastinum: Mediastinal contours appear normal. Heart size is normal. Bones and chest wall: No suspicious bony lesions. Overlying soft tissues appear unremarkable. IMPRESSION: No acute disease. Support equipment as detailed above Dictated by: Jeremiah Blair M.D. on 04/08/2016 at 8:18 Approved by: Jeremiah Blair M.D. on 04/08/2016 at 8:18
[2016-04-08] MEDS: Insulin Human REGular 300 Unit/3 mL Inj - Low SUBQ SCH ×3 (08:30→19:25)
[2016-04-08] MEDS: Pantoprazole 4 mg/mL 10 mL Inj IVPUSH SCH (08:43)
[2016-04-08] MEDS: Furosemide 10 mg/mL 4 mL Inj IVPUSH SCH ×2 (08:43→19:40)
[2016-04-08] MEDS: Methylnaltrexone 12 mg/0.6 mL Inj SUBQ SCH (08:43)
[2016-04-08] MEDS: Polyethylene Glycol (PEG) 17 Gm Powder PO SCH ×2 (08:44→19:25)
[2016-04-08] MEDS: Senna-Docusate 8.6-50 mg Tablet PO SCH ×2 (08:44→19:25)
[2016-04-08] MEDS: Heparin 5,000 Unit/mL Inj SUBQ SCH ×3 (08:44→23:34)
[2016-04-08] MEDS: MethylprednisoLONE Sodium Succinate 62.5 mg/mL 2 mL Inj IVPUSH SCH ×3 (08:44→23:35)
[2016-04-08] MEDS: Dextrose 5% 0.9% NaCl 1,000 ML IV SCH (08:45)
[2016-04-08] MEDS: Amoxicillin-Clav 875-125 mg Tablet PO SCH (09:40)
--- NOTE | 2016-04-08 10:22 | PROG NOTE ---
[address] [address] PROGRESS NOTE PATIENT: OSMANY MARSHALL : 1970 MR#: [id number] ADMIT: 03/29/2016 JOB ID: [id number] DATE: 04/08/2016 PULMONARY CRITICAL CARE PROGRESS NOTE: The patient is a 45-year-old woman with history of polysubstance abuse presenting with asthma exacerbation and acute respiratory failure. INTERVAL HISTORY: She had another episode of desaturation yesterday with significant problems with getting her oxygenation back to normal. She was up to 100% on 14 of PEEP for a little while yesterday afternoon but overnight has been weaned back down to 45% FiO2. She has also had her PEEP weaned down since. REVIEW OF SYSTEMS: Unable to obtain since the patient is intubated. PHYSICAL EXAMINATION: Vital signs reviewed. Afebrile. Pulse 98, respirations 11, BP 105/57, sats 95% on 45% FiO2 and PEEP of 5. General: Intubated, sedated. Eyes open but not tracking or following commands. Chest: Clear to auscultation. I do not hear any wheezes. LABORATORIES: Reviewed and notable for WBC continuing to rise up to 24 today from 18 yesterday. Hemoglobin 12, platelets 246. Chemistry shows sodium 143, potassium 3.9. Creatinine is 0.37. On intake and output, she is net almost 2 L negative for the last 24 hours. IMAGING: Chest x-ray is reviewed and shows normal pulmonary parenchyma. ET tube and lines are in appropriate position. Cultures: No new data. ASSESSMENT AND RECOMMENDATIONS: 1. Acute hypoxic hypercarbic respiratory failure. 2. Acute asthma exacerbation. 3. History of polysubstance abuse, methamphetamine, cocaine and marijuana. 4. Intravascular foreign body-PICC line with the knot removed on April 04. 5. Increasing leukocytosis. This 45-year-old woman has been here, intubated for asthma exacerbations since March 29. She continues to have episodic desaturation that is unexplained. There is no obvious evidence of mucous plugging. X-ray shows no infiltrates and she seems to be doing fine in the interim between these brief episodes. She is currently on a pressure support trial of 5/5. Doing extremely well with tidal volumes in the mid 600s. Her respiratory effort seems normal. She is, however, still on significant doses of sedative drips including propofol at 15, fentanyl at 65 and lorazepam at 0.5. We will turn off the lorazepam and wean down the fentanyl significantly. I would like to see if we can extubate her today and use high-flow or CPAP/BiPAP if needed post extubation for problems. I am also concerned about her rising white count. There is no obvious infiltrate on chest x-ray but I would like to get a sputum culture. She is only getting Augmentin for her presumed Staph sinusitis. Also will get blood and urine cultures as well as a fungal blood culture since she has been on significant dose steroids for more than a week. Her central line has also been in for just over a week so we should keep an eye on this as well. She is on appropriate DVT and GI prophylaxis. addendum: she did well on SBT and was extubated today CRITICAL CARE TIME: 45 minutes. CHELITA
--- NOTE | 2016-04-08 12:06 | PCM.PNMED ---
Subjective Date of Service Apr 08, 2016 Subjective Patient is intubated and sedated. ROS and subjective are not obtainable. Exam Vital Signs Vital Sign - Last Date Time Temp Pulse Resp B/P Pulse Ox O2 Delivery O2 Flow Rate FiO2 04/08/16 11:27 36.7 110 19 164/99 93 Simple Mask 8.00 04/08/16 08:56 45 Intake and Output 04/07/16 04/07/16 04/08/16 Cumulative From/Thru 15:00 23:00 07:00 03/29/16 16:49 - 04/08/16 06:31 Intake Total 1088 ml 1151 ml 38010 ml Output Total 3150 ml 2500 ml 87197 ml Balance -2062 ml -1349 ml 649 ml Intake Oral 0 ml IV Total 791 ml 898 ml 31822 ml Tube Feeding 117 ml 132 ml 585 ml Tube Irrigant 180 ml 121 ml 591 ml Output Urine Total 3150 ml 2500 ml 70962 ml Gastric Drainage Total 1830 ml # Bowel Movements 1 Exam She is sedated. Anicteric sclera Neck supple. Lungs with better air movement less wheezing. Heart is regular without murmur. Abdomen is soft nondistended Extremities are number for 1+ edema. Good pedal pulses. Skin is free of rash or lesions F right IJ line is in place IVs and Medications Medications Reviewed: Medications were reviewed in detail Lab and Diagnostics Result Diagram: 04/08/16 0400 04/08/16 0400 X-Rays, CTs and MRIs Chest x-ray on 04/05/2016: IMPRESSION: No acute cardiopulmonary disease. Endotracheal tube remains in expected position. Dictated by: Kristopher Iglesias M.D. on 04/05/2016 at 8:36 Assessment & Plan 1.Status asthmaticus: POA. The patient remains quite bronchospastic and showing minimal improvement despite maximal medical therapy. At this point we will continue maximal medical therapy. She did have purulent sputum which are now growing staph aureus with IDs pending. And chest x-ray shows no infiltrates. Continue bronchodilators and steroids. Pulmonary would like to put her on a breathing trial after her sedation is lowered to see if there is a possibility of extubation. No change to medical therapy. 2. Worsening leukocytosis. Repeat cultures of blood and sputum. Repeat chest x-ray still shows no infiltrate. She is being covered for possible MSSA sinusitis with Augmentin. Would consider converting this to IV. 3. Acute hypoxic respiratory failure, POA. The plan is as above to try to lighten sedation and procedure breathing trial for possible extubation 4. Nutrition. The patient continues on tube feeds. She has been on trickle feeds because of initially having difficulty with reflux in the tube feeds. We will follow this carefully and try to escalate her rate. She is currently dimension and doses of furosemide as she was fluid overloaded as well. 5. Critically ill. Continue DVT and PE prophylaxis. Pain Evaluation: Adequate Pain Control VTE Mechanical Devices: Intermittant Pneumatic CD Resuscitation Status: CPR: Attempt Resuscitation Time spent 30 minutes Jamir Rodrigues MD Apr 08, 2016 12:05
[2016-04-08] MEDS: Dexmedetomidine 400 mCg/100 mL 400 MCG in IV Premix 1 EACH IV SCH (14:59)
[2016-04-08] MEDS: Budesonide 0.5 mg/2 mL Inhalation Solution NEB SCH ×2 (15:07→20:30)
--- NOTE | 2016-04-08 16:44 | NUR ---
NUTRITION FOLLOW-UP: ASSESS: 45 YO female admitted to CCU with respiratory distress, status post intubation in the field, likely secondary to asthma exacerbation and rhinovirus infection. She was successfully extubated this afternoon, after ten days of minimal nutrition due to intolerance. Swallow evaluation ordered and is pending. She has worsening leukocytosis today. Repeat x-ray shows no infiltrates. PMHX: Severe asthma, polysubstance abuse, smoking. LABS: Reviewed. CO2 36, Cr 0.37, Glu 132, A1c 5.7, ALT 56, Alb 3.5. MEDS: Reviewed. Solu-medrol, reglan, lasix, miralax, relistor, senna, insulin. GI: BM x 1 yesterday. SKIN: Alireza 9. Per Automatic Coin Machine Mechanic, there are no wound issues at this time. WT: 62.0 kg, BMI 23.0 kg/m2. Admit weight: 61.1 kg. DIET: NPO x 10 D. ENTERAL FEEDING DISCONTINUED?: Vital 1.5 @ 10 ml/hr to re-start today RE-ESTIMATED NEEDS: Calories: 6773-6888 kcal/day (25-30 kcal/kg BW) Protein: 80-100 g/day (1.2-1.5 g/kg BW) Fluid: 7619-0046 ml/day (25-30 cc/kg BW) NUTRITION DIAGNOSIS: 1) Inadequate oral intake related to decreased ability to consume sufficient energy as evidenced by current NPO status - PERSISTS. NUTRITION INTERVENTION: 1) In the event diet unable to be advanced today, strongly recommend restarting enteral feeding tomorrow, as follows: Vital 1.5 starting at 10 ml/hr. Hold at 10ml x 24 hrs. Once tolerance established advance enteral feeding 5 ml every 4 hr. to goal 50 ml/hr, which would provide 1650 kcal (2020kcal w/propofol) and 73 g protein/day (100% kcal and 92% pro needs). Flush 40ml q 4 hrs. If IVF stopped, flush 95ml q 3 hrs. 2) Once at goal rate, recommend add 1 packet prosource to better meet protein needs. 3) If enteral feeding unable to be restarted/not tolerated, recommend initial TPN of 100 g Dex, 60 g AA, 10 g lipids providing 680 (TPN + Propofol = 1050 kcal), 60 g protein per day; meeting 86% calorie, 63% protein needs. Recommend starting at reduced rate due to prolonged NPO status with possible refeeding syndrome risk. 4) Once TPN tolerance established and propofol off, advance to goal TPN of 250 g Dex, 100 g AA, 35 g lipids providing 1600 kcal, 100 g protein; meeting 100% of calorie/protein needs. Adjust goal based on Propofol rate MONITOR/EVALUATE: NPO status, diet advance / tolerance, PO intake, TF vs TPN, labs, wt, GI, POC, nutrition status. Follow per high nutrition risk guidelines.
[2016-04-08] MEDS: Ampicillin-Sulbactam 3,000 mg/100 mL NS IV SCH ×4 (17:08→19:40)
--- NOTE | 2016-04-08 18:04 | NUR ---
Extubation/agitation/elevated BP Patient was extubated at 155 this morning. Prior to extubation sedation drips were weaned down to off. Initially patient was placed on 13L O2 per oxy-mask and O2 was decreased to 8L per oxy-mask with oxygen saturation ranging between 92-97%. Post extubation patient progressively became restless and agitated with elevated BP- consulted with MD-patient was placed on Precedex drip infusion. After about an hour patient relaxed but would become agitated with any stimulation- Precedex drip was increased gradually- please refer to CCU flow sheet for details- continue assessment.
[2016-04-09] VITALS (15 sets, daily range): BP systolic 138–148; BP diastolic 79–93; PULSE 83–114; RESP 15–22; O2SAT 90–98
[2016-04-09] MEDS: Albuterol 0.5% (5mg/mL) 20 mL Inhalation Solution NEB SCH ×3 (00:25→04:25)
[2016-04-09] MEDS: Albuterol-Ipratropium 3 mL Inhalation Solution NEB SCH ×7 (00:54→20:29)
[2016-04-09] MEDS: Dexmedetomidine 400 mCg/100 mL 400 MCG in IV Premix 1 EACH IV SCH (01:38)
[2016-04-09] MEDS: Insulin Human REGular 300 Unit/3 mL Inj - Low SUBQ SCH ×4 (02:30→20:30)
[2016-04-09] MEDS: Ampicillin-Sulbactam 3,000 mg/100 mL NS IV SCH ×8 (03:08→20:28)
[2016-04-09 03:22] LABS: BASOPHILS % (AUTO) 0.1 % (0-3); EOSINOPHILS % (AUTO) 0 % (0-5); MONOCYTES % (AUTO) 4.3 % (4-12); Mean Corpuscular Hemoglobin 26.9 pg (27.0-35.0); Mean Corpuscular Volume 81.4 fL (81-100); NEUTROPHILS % (AUTO) 89.2 % (40-74); Platelet Count 242 bil/L (150-400)
[2016-04-09 04:06] LABS: Magnesium 1.9 mg/dL (1.6-2.6); Phosphorus 3.9 mg/dL (2.5-4.9)
[2016-04-09] MEDS: Dextrose 5% 0.9% NaCl 1,000 ML IV SCH (04:09)
[2016-04-09] MEDS ORDERED: KCl 40 mEq/100 mL Premix (K 3 - 3.7 & Creat < 2) IV ONE (04:35)
--- NOTE | 2016-04-09 05:51 | NUR ---
Mentation Patient very drowsy initially in the shift, not following commands, speech is mumbled and not understandable. Precedex slowly titrated off. Patient remains drowsy but is able to state she is in the hospital and knows the month. Patient speech remains difficult to understand but I am able to sisal picker some of what she is saying. Patient is very weak. Patient seen at times talking to herself in the room.
[2016-04-09] MEDS: Budesonide 0.5 mg/2 mL Inhalation Solution NEB SCH ×3 (07:32→20:29)
--- NOTE | 2016-04-09 08:09 | PCM.PNMED ---
Subjective Date of Service Apr 09, 2016 Subjective She was extubated yesterday. She is feeling overall fairly good. No dyspnea. Minimal cough. No chest pain or abdominal pain. She is thirsty. Exam Vital Signs Vital Sign - Last Date Time Temp Pulse Resp B/P Pulse Ox O2 Delivery O2 Flow Rate FiO2 04/09/16 07:33 98 16 95 OxyMask 8.50 04/09/16 03:09 37.2 143/93 04/08/16 08:56 45 Intake and Output 04/08/16 04/08/16 04/09/16 Cumulative From/Thru 15:00 23:00 07:00 03/29/16 16:49 - 04/09/16 06:21 Intake Total 779 ml 990 ml 19987 ml Output Total 3500 ml 1575 ml 33715 ml Balance -2721 ml -585 ml -2657 ml Intake Oral 0 ml IV Total 714 ml 990 ml 23847 ml Tube Feeding 585 ml Tube Irrigant 65 ml 656 ml Output Urine Total 3200 ml 1575 ml 55255 ml Gastric Drainage Total 300 ml 2130 ml # Bowel Movements 1 2 Exam She is alert and oriented, calm. Fluent speech Anicteric sclera Neck is supple Lungs some expiratory wheezing but mostly clear with good air movement. Heart is regular without murmur Abdomen is soft nontender. Extremities with trace edema. Good pedal pulses IVs and Medications Medications Reviewed: Medications were reviewed in detail Lab and Diagnostics Result Diagram: 04/09/160 04/09/16 0310 X-Rays, CTs and MRIs Chest x-ray on 04/05/2016: IMPRESSION: No acute cardiopulmonary disease. Endotracheal tube remains in expected position. Dictated by: Kristopher Iglesias M.D. on 04/05/2016 at 8:36 Assessment & Plan 1. Acute hypoxic respiratory failure. POA. The patient was extubated yesterday and is doing quite well today. 2. Status asthmaticus. POA. Improved. At this point we will wean down the Pulmicort to 0.5 twice a day continue her bronchodilators and begin to taper her IV steroids to transition to oral. 3. Severe debilitation. POA. Physical therapy evaluation 4. FEN. Prolonged illness with intubation. Speech evaluation today to advance diet 5. Critically ill. Patient will be continued on GI and DVT prophylaxis. 6. Possible sinusitis. Continue empiric antibiotic VTE Mechanical Devices: Intermittant Pneumatic CD Resuscitation Status: CPR: Attempt Resuscitation Time spent 25 minutes Jamir Rodrigues MD Apr 09, 2016 08:09
[2016-04-09] MEDS ORDERED: Albuterol 0.5% (5mg/mL) 20 mL Inhalation Solution NEB PRN (08:25)
[2016-04-09] MEDS: Senna-Docusate 8.6-50 mg Tablet PO SCH ×2 (08:30→20:28)
[2016-04-09] MEDS: Polyethylene Glycol (PEG) 17 Gm Powder PO SCH ×2 (08:30→20:28)
[2016-04-09] MEDS: Pantoprazole 4 mg/mL 10 mL Inj IVPUSH SCH (09:14)
[2016-04-09] MEDS: MethylprednisoLONE Sodium Succinate 62.5 mg/mL 2 mL Inj IVPUSH SCH ×2 (09:15→17:05)
[2016-04-09] MEDS: Heparin 5,000 Unit/mL Inj SUBQ SCH ×2 (09:15→17:06)
--- NOTE | 2016-04-09 10:22 | NUR ---
Evaluation completed. Rec: Stim (pureed only) ice chips ok. Medication in pureed. WIND OPERATIONS MANAGER to follow Please go to "Notes" then click on "Assessments and Notes" (bottom left corner of screen). Then select appropriate discipline tab on top of screen.
--- NOTE | 2016-04-09 15:21 | NUR ---
Nuero/Diet/Activity Patient a/o x 3, forgetful at times. Patient denies pain, nausea or sob. Taking freq ice chips with 1:1 assist, mukund stim diet well, with occasional throat clearing. Patient with extreme weakness noted, ROM done q 1 hr on UE and LE bilat. Patient able to do minimal lifting of extremities independently for 1-2 sec at a time. Patient having freq liq stools this shift, a.m. stool softner held. Sonya patent priscilla uop. VSS, tele SR-ST 80-120's. O2 @ 6 L nc sat 92-96%. Report given to Chan SIMON.
--- NOTE | 2016-04-09 15:38 | NUR ---
Social Work Continued Discharge Planning-Late Entry D: EMR reviewed. Pt is on day 10 of hospitalization for Acute Respiratory Failure. Pt is on tube feeds and slow to improve after extubation. SW met with Pt's parents at bedside to offer support. No needs identified. Once appropriate, SW to complete CD assessment with Pt as their is reported recent cocaine use. Pt's parents reports she has been living in [place] with her daughter. ST completed evaluation. Pt on 1:1 feeds. Pt will likely need a PT evaluation when appropriate. SW will continue to follow for d/c planning. A: Pt with CD concerns P: Once appropriate, SW to complete CD assessment with Pt as their is reported recent cocaine use. Pt's parents reports she has been living in [place] with her daughter. ST completed evaluation. Pt on 1:1 feeds. Pt will likely need a PT evaluation when appropriate. SW will continue to follow for d/c planning. HEBER Tello
--- NOTE | 2016-04-09 18:47 | NUR ---
SPO2/Mobility/diarrhea/incontinent Cardiac: Pt denies CP. Tele SR 90-110 Resp: Pt denies SOB. NC titrated down, SPO2 94% on 4L NC. GI/: Pt given laxatives at end of NOC shift. Incontinent of liquid/loose stool x7 today. Hassan draining to gravity. Neuro: A&Ox3, pt is very weak, q2 turns, pt encouraged to do bed mobility exercise.
[2016-04-10] VITALS (17 sets, daily range): BP systolic 111–133; BP diastolic 65–83; PULSE 79–101; RESP 14–22; O2SAT 92–100
[2016-04-10] MEDS: Albuterol-Ipratropium 3 mL Inhalation Solution NEB SCH ×7 (00:32→23:47)
[2016-04-10] MEDS: Heparin 5,000 Unit/mL Inj SUBQ SCH ×3 (00:59→17:11)
[2016-04-10] MEDS: MethylprednisoLONE Sodium Succinate 62.5 mg/mL 2 mL Inj IVPUSH SCH ×2 (00:59→08:15)
[2016-04-10] MEDS: Dextrose 5% 0.9% NaCl 1,000 ML IV SCH ×2 (00:59→20:16)
[2016-04-10] MEDS: Insulin Human REGular 300 Unit/3 mL Inj - Low SUBQ SCH (02:30)
[2016-04-10] MEDS: Ampicillin-Sulbactam 3,000 mg/100 mL NS IV SCH ×8 (02:55→20:17)
--- NOTE | 2016-04-10 07:03 | NUR ---
GI/BGs/Respiratory Pt has been incontinent of stool x3. Laxative medications were withheld. Pt's Q6H BGs were within range and no insulin coverage was required. Pt SpO2 remained in the 90s and increases to the high 90s after respiratory treatments. Pt's lungs still sound course and loose and pt has a loose, moist cough that is strong and non-productive at this time.
[2016-04-10] MEDS: Budesonide 0.5 mg/2 mL Inhalation Solution NEB SCH ×2 (07:36→19:51)
[2016-04-10] MEDS: Polyethylene Glycol (PEG) 17 Gm Powder PO SCH ×2 (08:15→20:02)
[2016-04-10] MEDS: Pantoprazole 4 mg/mL 10 mL Inj IVPUSH SCH (08:15)
[2016-04-10] MEDS: Senna-Docusate 8.6-50 mg Tablet PO SCH ×2 (08:16→20:02)
[2016-04-10] MEDS: Methylnaltrexone 12 mg/0.6 mL Inj SUBQ SCH (08:16)
--- NOTE | 2016-04-10 10:29 | PCM.PNMED ---
Subjective Date of Service Apr 10, 2016 Subjective PULMONARY/CRITICAL CARE PROGRESS NOTE: Yesterday/overnight: Patient was successfully extubated. No acute events overnight. Today: Patient alert and conversant. Denies any fevers, chills, nausea, vomiting. Admits to being fatigued with any exertion. Admits to not being able to recall the events that led up to this admission. Is anxious to make self- improvements. Exam Vital Signs Vital Sign - Last Date Time Temp Pulse Resp B/P Pulse Ox O2 Delivery O2 Flow Rate FiO2 04/10/16 07:46 92 22 100 Nasal Cannula 4.00 04/10/16 07:30 36.8 126/83 04/08/16 08:56 45 Intake and Output 04/09/16 04/09/16 04/10/16 Cumulative From/Thru 15:00 23:00 07:00 03/29/16 16:49 - 04/10/16 06:00 Intake Total 2354 ml 1330 ml 02319 ml Output Total 800 ml 950 ml 75638 ml Balance 1554 ml 380 ml -723 ml Intake Oral 1500 ml 660 ml 2160 ml IV Total 854 ml 670 ml 97483 ml Tube Feeding 585 ml Tube Irrigant 656 ml Output Urine Total 800 ml 950 ml 92572 ml Gastric Drainage Total 2130 ml # Bowel Movements 5 7 Exam General: AAOx3, pleasant, cooperative; no acute distress HENT: Atraumatic; sclera anicteric; mucus membranes moist, moisturizing cream applied to nares for comfort Neck: Soft, no pain with movement; trachea midline Cardiac: Regular rate and rhythm at time of examination; no murmurs appreciated Respiratory: Bilateral wheeze all galdamez; faint coarse sounds bilateral bases; wheeze expiratory Abdomen: Soft, nondistended, nontender Extremities: No edema Pulses: Posterior tibialis equal and bilateral; radial equal and bilateral Skin: Warm and dry Neuro: CNII-XII grossly intact; speech normal; facial expressions symmetric Psych: Appropriate mood, affect, and responses to questioning; labile emotions when speaking of her recovery; expresses some concern about returning to her home in regard to work and family life Lab and Diagnostics Result Diagram: 04/09/16 0310 04/09/16 1041 X-Rays, CTs and MRIs Chest x-ray on 04/05/2016: IMPRESSION: No acute cardiopulmonary disease. Endotracheal tube remains in expected position. Dictated by: Kristopher Iglesias M.D. on 04/05/2016 at 8:36 Assessment & Plan Ms. Samano is a 45 year old female with history of polysubstance abuse and asthma , who presented to the hospital after being intubated in the field due to acute respiratory failure. Toxicology screen on admission 03/29 was positive for amphetamines, benzodiazepines, and cannabinoids. Studies have revealed she is positive for rhinovirus, and nasal culture revealed oxa-sensitive Staph aureus. She was successfully extubated 04/09/2016. - Hospital day 13 - Post-extubation 1 Acute hypoxemic respiratory failure, improving - Current: nasal cannula - Continue to wean O2 as tolerated - Treat underlying cause(s) Status asthmaticus; improved -Continues to be bronchospastic. -Continue on duonebs q4h sneha and albuterol q2h prn. Budesonide q12h. -Continue on solumedrol 60mg BID Sinusitis, under therapy -Purulent green nasal discharge cultured and positive for staph. Negative MRSA screen on admit. -Sensitivities: cefazolin, clindamycin, linezolid, oxacillin, rifampin, tetracycline, bactrim, vanco -Amoxicillin 3g q6h; start date 04/08/2016 Rhinovirus infection, improving - Likely contributed to acute respiratory failure - Supportive therapies Lactic acidosis, resolved: -Lactic acid on 03/31/2016 1.3. Elevated troponin -Likely secondary to demand ischemia -Troponins: 053 --> .234 --> .122 -Echocardiogram showed EF of 40-45% and severe hypokinesis globally. Polysubstance abuse: -Tox screen positive for methamphetamine, benzodiazepines, and cannabinoids. -Continue to watch for signs of withdrawal. FEN: -Speech therapy advancing diet as tolerated - DVT: Hep q8h - GI: PPI - Total time with case: 40 minutes Pain Evaluation: Adequate Pain Control GI Prophylaxis: Proton Pump Inhibitor VTE Prophylaxis: Sub-Q Heparin (Unfractionated) VTE Mechanical Devices: Intermittant Pneumatic CD Resuscitation Status: CPR: Attempt Resuscitation Attending Statement The patient was seen and examined together with Dr. Segundo on 04/10/2016 and I agree with the history, exam and plan as outlined in the note above. Minnie Segundo DO Apr 10, 2016 10:29 Eh Mehta MD May 03, 2016 17:20
[2016-04-10 11:01] LABS: Mean Corpuscular Hemoglobin 26.5 pg (27.0-35.0); Mean Corpuscular Volume 80.2 fL (81-100)
[2016-04-10] MEDS: Insulin Human REGular 300 Unit/3 mL Inj SUBQ SCH ×3 (11:30→22:00)
--- NOTE | 2016-04-10 11:51 | NUR ---
Evaluation completed. Please go to "Notes" then click on "Assessments and Notes" (bottom left corner of screen). Then select appropriate discipline tab on top of screen.
[2016-04-10] MEDS: Ondansetron 2 mg/mL 2 mL Inj IVPUSH PRN (15:40)
--- NOTE | 2016-04-10 16:44 | NUR ---
Activity/Bowels/Pain Patient a/o x 3, forgetful at times. Patient tearful throughout the shift, upset about time laps and her illness. Patient taking diet and ice chips fair with 1:1 feeding. Cont to have difficulty lifting or moving BUE and BLE, passive ROM done several times throughout the shift. Patient c/o abd pain and nausea this afternoon, incont large loose BM. Zofran x 1 given with good effect. Q 2 hr turns, skin intact. VSS, tele SR-ST. will cont poc.
--- NOTE | 2016-04-10 16:45 | NUR ---
spiritual care: pt request rec through nursing brief introductory visit. pt receiving care from and communicating with family members. requested a return visit. will plan to follow
--- NOTE | 2016-04-10 18:19 | NUR ---
spiritual care: follow up lengthy conversational visit. pt animated and expressive of her emotions including relief, surprise, shame, humility, determination and fear. She explored ways that fear has played out in her life and described important conversations she's had today as she comes to terms with recent medical events. Pt talked of her determination and desire to not smoke and otherwise strengthen her health, spirituality and relationships. Prayer. continuing to follow
[2016-04-10] MEDS: MethylprednisoLONE Sodium Succinate 40 mg/mL Inj IVPUSH SCH (22:20)
[2016-04-11] VITALS (15 sets, daily range): BP systolic 116–133; BP diastolic 62–84; PULSE 67–99; RESP 12–20; O2SAT 93–99
[2016-04-11] MEDS: Heparin 5,000 Unit/mL Inj SUBQ SCH ×3 (02:10→16:31)
[2016-04-11] MEDS: Ampicillin-Sulbactam 3,000 mg/100 mL NS IV SCH ×8 (02:10→19:57)
[2016-04-11] MEDS: Albuterol-Ipratropium 3 mL Inhalation Solution NEB SCH ×4 (04:14→16:12)
--- NOTE | 2016-04-11 04:32 | NUR ---
Activity/GI Pt's BLE strength has increased and pt was able to push self up to the top of the bed without assistance. Pt's BUE are still weak but pt is able to push call light. Pt is encouraged and continues to do strengthening exercises while in bed. Pt has tolerated all PO intake and has had no issue with taking small sips of thin fluids. If fluids are ice cold then pt has a slight cough after swallowing the ice cold fluids. Pt had c/o ABD cramping and heat was applied and relieved the pt's cramps.
[2016-04-11 05:15] LABS: BASOPHILS % (AUTO) 0.1 % (0-3); EOSINOPHILS % (AUTO) 0.1 % (0-5); MONOCYTES % (AUTO) 5.1 % (4-12); Mean Corpuscular Hemoglobin 26.6 pg (27.0-35.0); Mean Corpuscular Volume 80.1 fL (81-100); NEUTROPHILS % (AUTO) 80.6 % (40-74); Platelet Count 233 bil/L (150-400)
[2016-04-11 05:54] LABS: Magnesium 1.6 mg/dL (1.6-2.6); Phosphorus 3.4 mg/dL (2.5-4.9)
[2016-04-11] MEDS: Insulin Human REGular 300 Unit/3 mL Inj SUBQ SCH ×2 (07:30→11:30)
[2016-04-11] MEDS: Budesonide 0.5 mg/2 mL Inhalation Solution NEB SCH (08:19)
[2016-04-11] MEDS: MethylprednisoLONE Sodium Succinate 40 mg/mL Inj IVPUSH SCH (09:34)
[2016-04-11] MEDS: Pantoprazole 4 mg/mL 10 mL Inj IVPUSH SCH (09:34)
[2016-04-11] MEDS: Polyethylene Glycol (PEG) 17 Gm Powder PO SCH ×2 (09:34→19:44)
[2016-04-11] MEDS: Senna-Docusate 8.6-50 mg Tablet PO SCH ×2 (09:35→19:44)
--- NOTE | 2016-04-11 10:42 | PCM.PNMED ---
Subjective Date of Service Apr 11, 2016 Subjective Overnight: No acute events Today: Denies any pain, SOB, CP. States that she is feeling improved, and is eager to continue working with PT. Tolerating PT well. Working with ST to advance diet as appropriate. Reports less fatigue with activity today. Exam Vital Signs Vital Sign - Last Date Time Temp Pulse Resp B/P Pulse Ox O2 Delivery O2 Flow Rate FiO2 04/11/16 08:19 75 20 95 Nasal Cannula 1.00 04/11/16 07:35 36.8 117/77 04/08/16 08:56 45 Intake and Output 04/10/16 04/10/16 04/11/16 Cumulative From/Thru 15:00 23:00 07:00 03/29/16 16:49 - 04/11/16 05:19 Intake Total 1128 ml 1745 ml 37650 ml Output Total 450 ml 1375 ml 57214 ml Balance 678 ml 370 ml 325 ml Intake Oral 300 ml 1050 ml 3510 ml IV Total 828 ml 695 ml 60973 ml Tube Feeding 585 ml Tube Irrigant 656 ml Output Urine Total 450 ml 1375 ml 88080 ml Gastric Drainage Total 2130 ml # Bowel Movements 1 9 Exam General: AAOx3, pleasant, cooperative; no acute distress HENT: Atraumatic; sclera anicteric; mucus membranes moist, moisturizing cream applied to nares for comfort Neck: Soft, no pain with movement; trachea midline; R IJ in place, bandages clean, dry, intact Cardiac: Regular rate and rhythm at time of examination; no murmurs appreciated Respiratory: Improved aeration; air flow noted all galdamez; minimal wheeze; no conversational dyspnea or fatigue Abdomen: Soft, nondistended, nontender Extremities: No edema Pulses: Posterior tibialis equal and bilateral; radial equal and bilateral Skin: Warm and dry Neuro: CNII-XII grossly intact; speech normal; facial expressions symmetric Psych: Appropriate mood, affect, and responses to questioning Lab and Diagnostics Result Diagram: 04/11/16 0500 04/11/16 0500 X-Rays, CTs and MRIs Chest x-ray on 04/05/2016: IMPRESSION: No acute cardiopulmonary disease. Endotracheal tube remains in expected position. Dictated by: Kristopher Iglesias M.D. on 04/05/2016 at 8:36 Assessment & Plan Ms. Samano is a 45 year old female with history of polysubstance abuse and asthma , who presented to the hospital after being intubated in the field due to acute respiratory failure. Toxicology screen on admission 03/29 was positive for amphetamines, benzodiazepines, and cannabinoids. Studies have revealed she is positive for rhinovirus, and nasal culture revealed oxa-sensitive Staph aureus. She was successfully extubated 04/09/2016. - Hospital day 14 - Post-extubation 2 Acute hypoxemic respiratory failure, improving - Current: nasal cannula - Continue to wean O2 as tolerated - Treat underlying cause(s) Status asthmaticus; improved -Continue on duonebs q4h sneha and albuterol q2h prn. Budesonide q12h. -Decrease steroids to oral: Prednisone 40mg daily - Will need appropriate outpatient follow up - Patient has admitted to using husbands medications - Prior to DC, recommend - RT education on spacers, nebulizers, inhalers - RT to complete peak flows twice daily - Asthma action plan initiated - Outpatient FU appt Sinusitis, under therapy -Purulent green nasal discharge cultured and positive for staph. Negative MRSA screen on admit. -Sensitivities: cefazolin, clindamycin, linezolid, oxacillin, rifampin, tetracycline, bactrim, vanco -Amoxicillin 3g q6h; start date 04/08/2016 - Transition to oral when appropriate Rhinovirus infection, improving - Likely contributed to acute respiratory failure - Supportive therapies Lactic acidosis, resolved: -Lactic acid on 03/31/2016 1.3. Elevated troponin -Likely secondary to demand ischemia -Troponins: 053 --> .234 --> .122 -Echocardiogram showed EF of 40-45% and severe hypokinesis globally. Polysubstance abuse: -Tox screen positive for methamphetamine, benzodiazepines, and cannabinoids. -Continue to watch for signs of withdrawal. FEN: -Speech therapy advancing diet as tolerated - DVT: Hep q8h - GI: PPI - Encourage PT Thank you for this most interesting consult. At this time, pulmonary will sign off. We recommend outpatient follow up and education of asthma medications prior to discharge, as noted above. - Total time with case: 40 minutes Pain Evaluation: Adequate Pain Control GI Prophylaxis: Proton Pump Inhibitor VTE Prophylaxis: Sub-Q Heparin (Unfractionated) VTE Mechanical Devices: Intermittant Pneumatic CD Resuscitation Status: CPR: Attempt Resuscitation Attending Statement The patient was seen and examined together with Dr. Segundo on 04/11/2016 and I agree with the history, exam and plan as outlined in the note above. Minnie Segundo DO Apr 11, 2016 10:42 Eh Mehta MD May 03, 2016 17:24
--- NOTE | 2016-04-11 14:28 | NUR ---
NUTRITION FOLLOW-UP: ASSESS: 45 YO female admitted to CCU with respiratory distress, status post intubation in the field, likely secondary to asthma exacerbation and rhinovirus infection. She was successfully extubated 04/08. Pt's diet was able to be advanced to soft with thin liquids. She has been tolerated diet well at 50-100% of all meals and reported that she is very happy to have a more normal diet order. PMHX: Severe asthma, polysubstance abuse, smoking. LABS: Reviewed. Pr Internship .3, Glu 105, ALT 39 MEDS: Reviewed. GI: BM x 1 04/11 SKIN: Alireza 9. Per Obstetrical Tech, there are no wound issues at this time. WT: 56.2 kg, BMI 21.3 kg/m2. Admit weight: 61.1 kg. DIET: Soft, thin liquids, 1:1 feeding, PO 50-100% RE-ESTIMATED NEEDS: Calories: 4978-2031 kcal/day (25-30 kcal/kg BW) Protein: 65-85 g/day (1.2-1.5 g/kg BW) NUTRITION DIAGNOSIS: 1) Inadequate oral intake related to decreased ability to consume sufficient energy as evidenced by current NPO status - IMPROVED NUTRITION INTERVENTION: 1) Continue diet per ST. 2) Pt reported that she is allergic to all dietary supplements. 3) Encouraged pt to make sure she gets protein with all meals to help with recovery and to continue eating all meals. Pt vocalized that her appetite is much better and she is very happy to have a soft/thin liquid diet order MONITOR/EVALUATE: PO intake, ST, labs, wt, GI, POC, nutrition status. Follow per moderate nutrition risk guidelines.
--- NOTE | 2016-04-11 14:57 | PCM.PNMED ---
Subjective Date of Service Apr 11, 2016 Subjective She continues to improve. She is much less stiffness dyspneic. She denies any fevers or chills. Minimal cough. No rhinorrhea. She does have profound weakness which may relate to her steroids while critically ill. Her weakness is greater in the legs and she also has very poor poor fine motor skills of the hands. Exam Vital Signs Vital Sign - Last Date Time Temp Pulse Resp B/P Pulse Ox O2 Delivery O2 Flow Rate FiO2 04/11/16 13:27 73 20 95 04/11/16 11:58 37.0 122/73 Room Air 04/11/16 08:19 1.00 04/08/16 08:56 45 Intake and Output 04/10/16 04/10/16 04/11/16 Cumulative From/Thru 15:00 23:00 07:00 03/29/16 16:49 - 04/11/16 05:19 Intake Total 1128 ml 1745 ml 65401 ml Output Total 450 ml 1375 ml 40586 ml Balance 678 ml 370 ml 325 ml Intake Oral 300 ml 1050 ml 3510 ml IV Total 828 ml 695 ml 44934 ml Tube Feeding 585 ml Tube Irrigant 656 ml Output Urine Total 450 ml 1375 ml 34956 ml Gastric Drainage Total 2130 ml # Bowel Movements 1 1 9 Exam Alert oriented 3, fluent speech. Anicteric sclerae. Neck supple normal JVP. Lungs with 3/4 breath sounds and minimal expiratory wheezing, good air movement. Heart is regular without murmur gallop or rub. Abdomen soft nontender Extremities are free of edema, good pedal pulses skin is free of rash IVs and Medications Medications Reviewed: Medications were reviewed in detail Lab and Diagnostics Result Diagram: 04/11/16 0500 04/11/16 0500 X-Rays, CTs and MRIs Chest x-ray on 04/05/2016: IMPRESSION: No acute cardiopulmonary disease. Endotracheal tube remains in expected position. Dictated by: Kristopher Iglesias M.D. on 04/05/2016 at 8:36 Assessment & Plan Ms. Samano is a 45 year old female with history of polysubstance abuse and asthma , who presented to the hospital after being intubated in the field due to acute respiratory failure. Toxicology screen on admission 03/29 was positive for amphetamines, benzodiazepines, and cannabinoids. Studies have revealed she is positive for rhinovirus, and nasal culture revealed oxa-sensitive Staph aureus. She was successfully extubated 04/09/2016. - 1. Acute hypoxemic respiratory failure, improving - Current: nasal cannula - Continue to wean O2 as tolerated - Treat underlying cause(s) 2.Status asthmaticus; improved -This is much improved. Continue bronchodilators and we have diminished her prednisone down to 30 mg every 6 hours. We will like to transition her to oral prednisone the next day. 3. Sinusitis, under therapy. Clinically this is improved. Continue with oral antibiotics. 4. Rhinovirus infection, improved - Likely contributed to acute respiratory failure - Supportive therapies 5. Lactic acidosis, resolved: -Lactic acid on 03/31/2016 1.3. 6. Elevated troponin -Likely secondary to demand ischemia -Troponins: 053 --> .234 --> .122 -Echocardiogram showed EF of 40-45% and severe hypokinesis globally. 7. Polysubstance abuse: -Tox screen positive for methamphetamine, benzodiazepines, and cannabinoids. -Continue to watch for signs of withdrawal. 8. FEN: -Speech therapy advancing diet as tolerated - DVT: Hep q8h - GI: PPI - Encourage PT Discharge planning, is contingent on her clinical improvement. She currently does not have pain or resources for care home. We will continue to see how she does with physical therapy. Pain Evaluation: Adequate Pain Control GI Prophylaxis: Proton Pump Inhibitor VTE Prophylaxis: Sub-Q Heparin (Unfractionated) VTE Mechanical Devices: Intermittant Pneumatic CD Resuscitation Status: CPR: Attempt Resuscitation Time spent 25 minutes Jamir Rodrigues MD Apr 11, 2016 14:57
[2016-04-11] MEDS: Dextrose 5% 0.9% NaCl 1,000 ML IV SCH (16:31)
--- NOTE | 2016-04-11 18:27 | NUR ---
Activity/mentation Patient a/o x 3, but tearful and frustrated at times r/t health status and slow physical improvements. Patient using BLE more, able to bend knees and move legs but cont to have difficulty lifting BUE and fine motor skills like pressing buttons or holding things in hands. Patient encouraged to keep working on passive ROM and working with PT and staff. Patient taking diet well with 1:1 feeding. Hassan cath patent, no BM this shift. VSS, tele SR. Will cont poc.
[2016-04-11] MEDS ORDERED: MethylprednisoLONE Sodium Succinate 40 mg/mL Inj IVPUSH SCH (20:30)
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
[2016-04-11] MEDS: Ondansetron 2 mg/mL 2 mL Inj IVPUSH PRN (22:46)
[2016-04-12] VITALS (11 sets, daily range): BP systolic 103–134; BP diastolic 64–76; PULSE 75–113; RESP 14–20; O2SAT 93–98
[2016-04-12] MEDS: Heparin 5,000 Unit/mL Inj SUBQ SCH ×4 (00:34→23:01)
[2016-04-12] MEDS: Ampicillin-Sulbactam 3,000 mg/100 mL NS IV SCH ×8 (02:30→21:04)
[2016-04-12] MEDS: Albuterol-Ipratropium 3 mL Inhalation Solution NEB SCH ×4 (08:29→19:23)
[2016-04-12] MEDS: Senna-Docusate 8.6-50 mg Tablet PO SCH ×2 (08:30→20:30)
[2016-04-12] MEDS: Budesonide 0.5 mg/2 mL Inhalation Solution NEB SCH ×2 (08:30→19:23)
[2016-04-12] MEDS: Polyethylene Glycol (PEG) 17 Gm Powder PO SCH ×2 (08:30→20:30)
[2016-04-12] MEDS: Pantoprazole 4 mg/mL 10 mL Inj IVPUSH SCH (09:32)
[2016-04-12] MEDS: predniSONE 20 mg Tablet PO SCH (09:32)
[2016-04-12] MEDS: Methylnaltrexone 12 mg/0.6 mL Inj SUBQ SCH (09:46)
[2016-04-12] MEDS: Dextrose 5% 0.9% NaCl 1,000 ML IV SCH (12:48)
--- NOTE | 2016-04-12 13:53 | PCM.PNMED ---
Subjective Date of Service Apr 12, 2016 Subjective She feels much better. Her breathing is much improved. Minimal wheezing and minimal cough. Her legs is still weak but they feel better than yesterday. She has had a fairly profound proximal leg weakness which may relate to her steroid dosing while in the ICU. No nausea vomiting or diarrhea. She likes try to go home tomorrow. She does not have resources for chcf facility but does think that she can make it home with her family assisting her. She will be going her mother and father's house. There are no stairs into the house since 1 level living. Exam Vital Signs Vital Sign - Last Date Time Temp Pulse Resp B/P Pulse Ox O2 Delivery O2 Flow Rate FiO2 04/12/16 13:18 113 20 93 Room Air 04/12/16 09:25 36.7 134/76 04/11/16 08:19 1.00 04/08/16 08:56 45 Intake and Output 04/11/16 04/11/16 04/12/16 Cumulative From/Thru 15:00 23:00 07:00 03/29/16 16:49 - 04/12/16 06:29 Intake Total 1021 ml 779 ml 15979 ml Output Total 1400 ml 1400 ml 02464 ml Balance -379 ml -621 ml -675 ml Intake Oral 400 ml 0 ml 3910 ml IV Total 621 ml 779 ml 44002 ml Tube Feeding 585 ml Tube Irrigant 656 ml Output Urine Total 1400 ml 1400 ml 51201 ml Gastric Drainage Total 2130 ml # Bowel Movements 0 0 9 Exam Alert oriented 3, no distress Neck supple Anicteric sclerae. Lungs with good breath sounds, minimal expiratory or inspiratory wheezes. Heart is regular without murmur gallop or rub Abdomen soft or conjunctivae are free of edema. Good pedal pulses. Lab and Diagnostics Result Diagram: 04/11/16 0500 04/11/16 0500 X-Rays, CTs and MRIs Chest x-ray on 04/05/2016: IMPRESSION: No acute cardiopulmonary disease. Endotracheal tube remains in expected position. Dictated by: Kristopher Iglesias M.D. on 04/05/2016 at 8:36 Assessment & Plan Ms. Samano is a 45 year old female with history of polysubstance abuse and asthma , who presented to the hospital after being intubated in the field due to acute respiratory failure. Toxicology screen on admission 12/28 was positive for amphetamines, benzodiazepines, and cannabinoids. Studies have revealed she is positive for rhinovirus, and nasal culture revealed oxa-sensitive Staph aureus. She was successfully extubated 04/09/2016. - 1. Acute hypoxemic respiratory failure, Javad on. She was intubated for an extensive period time for her status asthmaticus. 2.Status asthmaticus; improved -This is much improved. Continue bronchodilators and we have diminished her prednisone down to 30 mg every 6 hours. We will like to transition her to oral prednisone the next day. 3. Sinusitis, under therapy. Clinically this is improved. Continue with oral antibiotics. Told course a 10-14 days. 4. Rhinovirus infection, resolved - Likely contributed to acute respiratory failure - Supportive therapies 5. Lactic acidosis, resolved: -Lactic acid on 03/31/2016 1.3. 6. Elevated troponin -Likely secondary to demand ischemia -Troponins: 053 --> .234 --> .122 -Echocardiogram showed EF of 40-45% and severe hypokinesis globally. 7. Polysubstance abuse: -Tox screen positive for methamphetamine, benzodiazepines, and cannabinoids. -Continue to watch for signs of withdrawal. 8. FEN: -Speech therapy advancing diet as tolerated 9. Proximal muscle weakness of legs, this may related to steroid myopathy after her prolonged ICU stay. This is rapidly improving. We are trying to taper her steroids as quickly as possible and she is improving with physical therapy. - DVT: Hep q8h - GI: PPI - Encourage PT Discharge planning, is contingent on her clinical improvement. She currently does not have pain or resources for chcf. We will continue to see how she does with physical therapy. She would like to try to return to her parent's home tomorrow, . Therapy is reassessing her seen if they think this is feasible today. Pain Evaluation: Adequate Pain Control GI Prophylaxis: Proton Pump Inhibitor VTE Prophylaxis: Sub-Q Heparin (Unfractionated) VTE Mechanical Devices: Intermittant Pneumatic CD Resuscitation Status: CPR: Attempt Resuscitation Time spent 30 minute Jamir Rodrigues MD Apr 12, 2016 13:53
--- NOTE | 2016-04-12 15:34 | NUR ---
spiritual care: follow up brief check in visit. pt reported "i'm doing great" and thanked me for continuing follow up care.
--- NOTE | 2016-04-12 16:04 | PCM.CHPCAR ---
Consult Subjective Date of service Apr 12, 2016 Date of admit Mar 29, 2016 at 17:55 Provider Requesting Consult Primary Care Physician Primary Care Provider: Carlton Villarreal MD Chief Complaint Mrs. Leanna Samano is a 45-year-old female with no prior cardiac history. The patient was admitted to [facility] on 03/29/2016 via EMS in respiratory distress. The patient had been intubated and sedated in the field by EMS. During the patients hospitalization CXR's did not reveal any acute pulmonary process, she tested positive for rhinovirus, and a nasal culture revealed oxa-sensitive Staph aureus. Since admission, her breathing has markedly improved and she was successfully extubated 04/09/2016. She continues to have marked weakness in her extremities following her immobility related to her illness. The patient's illness began 1 month ago when her daughter became ill with similar symptoms. The patient has had progressively worsening shortness of breath over the last month which acutely worsened on 03/29/2016. The patient states that her daughter also experienced several days of URI symptoms and she recovered spontaneously without treatment . The patient reports that she had increasing congestion, cough that was nonproductive, and wheezing. The Patient's patient has chronic history of asthma. The patient was once again treating herself with her husbands albuterol, Atrovent, and steroids without noting any improvement. On the morning of 03/29 the patient relates that she briefly began to feel better, but, she reports that she suddenly became very short of breath. In addition, the patient relates that she had experienced chest pain primarily associated with coughing.. The patient has an extensive history of polysubstance abuse including: methamphetamine, cocaine, and alcohol abuse. The patient's urine toxicology screen is positive for methamphetamine, benzodiazpines, and cannabinoids. The patient currently smokes one pack of cigarettes per day. She has previously worked in a [employer] but no longer is employed. No recent travel. 2-D echocardiogram: 03/30/2016 Left ventricular systolic function is moderately reduced with the ejection fraction estimated to be 40-45% with moderate global hypokinesis with severe hypokinesis in the mid septal and mid inferior and inferoposterior segments. This could be an appearance consistent with an atypical stress related cardiomyopathy but clinical correlation is needed. Diastolic function could not be accurately assessed due to tachycardia. The right ventricle grossly appears normal in size with probable normal systolic function. Pulmonary artery pressures cannot be estimated because of the lack of a measurable TR jet velocity but the IVC suggests a high right atrial pressure of 15 mm Hg. Both atria are grossly normal in size. There is no obvious significant valvular heart disease. The patient was in sinus tachycardia with heart rates between 115-120 bpm during the exam. Chest x-ray: No acute pulmonary process CTA: 03/30/2016 No evidence for acute pulmonary embolism. History of Present Illness BP: 103-134 / 67-76 mmHg HR: 80-113 bpm Twelve-lead EKG: Telemetry: Labs: 04/11/2016 1. CBC: W: 11.8, H/H: 12.7/38.2 2. CMP: Na: +139, K+: 3.9, BUN: 25, creatinine: Less than 0.30 3. Drug screen: Positive for amphetamines, benzodiazepines and cannabinoids Current cardiac medications Medications: 1. None PMH Bedside Blood Glucose: 105 Unable to Obtain Active Prescriptions or Reported Meds Current Inpatient Medications Current Medications Methylprednisolone Sodium Succinate 60 mg BID IVPUSH Last administered on 09:34; Admin Dose 60 MG; Start 04/10/16 at 20:30; Stop 04/11/16 at 10:39; Status DC Methylprednisolone Sodium Succinate 60 mg BID IVPUSH Last administered on 19:57; Admin Dose 60 MG; Start 04/11/16 at 20:30; Stop 04/11/16 at 22:00; Status DC Prednisone 40 mg DAILY PO Last administered on 04/12/16 09:32; Admin Dose 40 MG ; Start 04/12/16 at 08:30 Allergies: Coded Allergies: No Known Allergies (Unverified , 03/29/16) Social History Hx Alcohol Use: NoAlcoholic Drinks Per Day: hard liquor history Hx Substance Use: Yes ( states she previously used Meth)Hx Tobacco Use: Yes Smoking Status: Current Every Day Smoker Living Arrangement: with Family (with her ) Exam Vital Signs Vital Sign - Last Date Time Temp Pulse Resp B/P Pulse Ox O2 Delivery O2 Flow Rate FiO2 04/12/16 13:18 113 20 93 Room Air 04/12/16 12:30 36.7 103/67 04/11/16 08:19 1.00 04/08/16 08:56 45 Intake and Output 04/11/16 04/11/16 04/12/16 Cumulative From/Thru 15:00 23:00 07:00 03/29/16 16:49 - 04/12/16 06:29 Intake Total 1021 ml 779 ml 52466 ml Output Total 1400 ml 1400 ml 01892 ml Balance -379 ml -621 ml -675 ml Intake Oral 400 ml 0 ml 3910 ml IV Total 621 ml 779 ml 60922 ml Tube Feeding 585 ml Tube Irrigant 656 ml Output Urine Total 1400 ml 1400 ml 19018 ml Gastric Drainage Total 2130 ml # Bowel Movements 0 0 9 Objective Gen.: Patient is sitting up in bed, AAO and in NAD. She is very talkative Head: NC/AT Eyes: Anicteric sclerae Ears: External ears appear normal Neck: supple, no apparent jugular reflux, no jugular venous distention, carotids are 2+ over 4 without bruit Lungs: Good breath sounds, minimal expiratory or inspiratory wheezes Heart: RRR normal S1-S2 no S3 no S4, no murmurs, clicks or gallops Abdomen: Soft, flat, NT, no masses, LKS not palpable, positive NABS all 4 quadrants. Extremities: No edema. There is notable weakness and decreased range of motion in all 4 extremities Skin: Warm and dry, good turgor, there are no masses or rashes that are noted. There are multiple areas of ecchymosis related to needle sticks and IV therapy. Lab and Diagnostics Result Diagram: 04/11/16 0500 04/11/16 0500 Assessment & Plan Assessment # Cardiomyopathy of unclear mechanism: The patient's 2-D echocardiogram shows severe global hypokinesis and an EF of 40 -45%. The patient was noted to be tachycardic during her 2-D echocardiogram. The has a global cardiomyopathy that may be tachycardia mediated and stress related to her recent acute hypoxemic respiratory failure. There are no regional wall motion abnormalities that would be indicative of an ischemic mechanism. The patient does have risk factors including tobacco abuse and family medical history, therefore an ischemic mechanism cannot be totally ruled out. The patient has not had any type of anginal symptom since being extubated. The patient's elevated troponins are most likely secondary to demand ischemia related to her acute respiratory failure. I suspect that since the patients tachycardia has resolved and as the patient continues to recover from her severe respiratory illness her left ventricular function will improve. The patient is stable from a cardiac perspective with no anginal symptoms and no symptoms of fluid overload. Recommendation: 1. No specific cardiac treatment. 2. Follow up with PCP 3. Discussed with Dr. Ventura, Cardiology will sign off and see only if called. 4. Thank You for asking us to evaluate this patient. # Elevated troponin This patient's elevated troponins are likely secondary to demand ischemia related to her respiratory failure. The patient's troponins are trending down: 053 --> .234 --> .122. The patient's 2-D Echocardiogram showed EF of 40-45% and severe hypokinesis globally. The patient has not experienced any type of anginal symptom. She did have chest pain associated with her cough prior to admission to [facility]. Recommendation: 1. No specific cardiac treatment 2. Follow up with PCP. # Acute hypoxemic respiratory failure:. The patient's respiratory status as improved markedly and she has been extubated. She currently appears to be doing very well on room air. Recommendation: 1. Treatment plan per primary care team #Status asthmaticus; -This is much improved. Continue bronchodilators and we have diminished her prednisone down to 30 mg every 6 hours. We will like to transition her to oral prednisone the next day. # Sinusitis, Clinically improved Recommendations: Treatment plan / Primary Care Team. #. Rhinovirus infection: Resolved Recommendation: 1. Treatment plan / Primary Care Team # Lactic acidosis Resolved Recommendation: Treatment plan per primary care team # Polysubstance abuse: The patient's tox screen is positive for multiple substances including: methamphetamine, benzodiazepines, and cannabinoids. Recommendation: 1. Treatment plan per primary care team # Muscle weakness of extremities, Recommendation: Treatment plan per primary care team Pain Evaluation: Adequate Pain Control VTE Prophylaxis: Sub-Q Heparin (Unfractionated) VTE Mechanical Devices: Intermittant Pneumatic CD Resuscitation Status: CPR: Attempt Resuscitation Kurtis Baker PA-C Apr 12, 2016 16:04
--- NOTE | 2016-04-12 19:14 | NUR ---
Anxiety Pt. this morning was crying and saying that she did not want to go on because of what her daughter said on facebook and was refusing morning meds. Pt. did not want to kill herself when I asked if she wanted to commit suicide. I sat and talked with Pt. and Pt. cheered up, took her meds with no complaints. Pt. throughout shift showed minimal anxiety, mom and came to see her. is in the room with Pt as of now.
[2016-04-13] VITALS (14 sets, daily range): BP systolic 112–144; BP diastolic 65–88; PULSE 74–112; RESP 16–20; O2SAT 94–98
[2016-04-13] MEDS: Albuterol-Ipratropium 3 mL Inhalation Solution NEB SCH ×6 (00:18→19:46)
[2016-04-13] MEDS: Ampicillin-Sulbactam 3,000 mg/100 mL NS IV SCH ×4 (02:22→08:30)
--- NOTE | 2016-04-13 05:18 | NUR ---
Respiratory Pt denies dyspnea, RA at present with SpO2 of 96%. Pt AOx3, calm, resting throughout shift. No c/o pain. Independent in bed mobility. Pt states "I'm so ready to go home, I feel so much better." VSS. Tele SR 90s.
[2016-04-13] MEDS: Budesonide 0.5 mg/2 mL Inhalation Solution NEB SCH ×2 (07:57→19:46)
[2016-04-13] MEDS: predniSONE 20 mg Tablet PO SCH (08:29)
[2016-04-13] MEDS: Dextrose 5% 0.9% NaCl 1,000 ML IV SCH (08:29)
[2016-04-13] MEDS: Pantoprazole 4 mg/mL 10 mL Inj IVPUSH SCH (08:29)
[2016-04-13] MEDS: Heparin 5,000 Unit/mL Inj SUBQ SCH ×3 (08:29→20:31)
[2016-04-13] MEDS: Senna-Docusate 8.6-50 mg Tablet PO SCH ×2 (08:30→20:30)
[2016-04-13] MEDS: Polyethylene Glycol (PEG) 17 Gm Powder PO SCH ×2 (08:30→20:30)
--- NOTE | 2016-04-13 11:05 | NUR ---
Social Work: Continued Discharge Planning D: Pt discussed in morning rounds. Pt is not yet medically stable for discharge at this time but is anticipated to be ready in several days from a medical standpoint. Pt working with PT; current recommendation is for SNF as pt is max assist. Pt's [employer] insurance and recent substance use are barriers to SNF discharge. INDUSTRY SEGMENT SPECIALIST requested TRIMMER OPERATOR [employer]IFE provide referral to [facility] Swing Bed. INDUSTRY SEGMENT SPECIALIST to meet with pt today to discuss chemical dependency resources and dcp if pt is declined from [facility]. A: Pt who is currently max assist for ambulation. P: Evolving; TRIMMER OPERATOR [employer] KNIFE to provide referral to [facility] for Swing Bed; INDUSTRY SEGMENT SPECIALIST to meet with pt for CD assessment today. HEBER Langford Addendum: 04/13/16 at 1551 by QIANA MULLINS SS Per PT, pt was able to get up and ambulate in her room, SBA today. Current recommendation is still for skilled rehab. Barriers to skilled discharge reviewed with PT. If pt is unable to get a Swing Bed, pt will need a walker and Wheelchair. INDUSTRY SEGMENT SPECIALIST met with pt and father, Izaiah, at bedside. INDUSTRY SEGMENT SPECIALIST reviewed discharge options with the pt and father. Pt does not want to go to [facility] and believes that she will be able to go home to stay with her parents. Father states that they can provide supportive care and that he is working on getting her a walker and wheelchair. INDUSTRY SEGMENT SPECIALIST provided list of DME suppliers along with used DME locations. They declined to have equipment delivered to the hospital prior to d/c. INDUSTRY SEGMENT SPECIALIST reviewed possible home health option. Pt and father are agreeable to this. Pt will be staying in [facility]. HH Choice List Provided. Referral provided to [facility] based on geographic location. F2F in folder for MD to sign.
--- NOTE | 2016-04-13 13:24 | NUR ---
Faxed referral to [facility] looking for Swing bed for this patient to continue rehab per LOCOMOTIVE INSPECTOR
--- NOTE | 2016-04-13 15:11 | PCM.PNMED ---
Subjective Date of Service Apr 13, 2016 Subjective 45-year-old woman with substance abuse and history of asthma presents with acute respiratory failure requiring intubation. She states that her breathing is back to normal. She is very weak. She is highly motivated to regain strength and return to home. She is having a mild pruritic rash over her chest and shoulders. Exam Vital Signs Vital Sign - Last Date Time Temp Pulse Resp B/P Pulse Ox O2 Delivery O2 Flow Rate FiO2 04/13/16 12:49 37.0 74 18 128/74 96 Room Air 04/11/16 08:19 1.00 04/08/16 08:56 45 Intake and Output 04/12/16 04/12/16 04/13/16 Cumulative From/Thru 15:00 23:00 07:00 03/29/16 16:49 - 04/13/16 06:05 Intake Total 1903 ml 818 ml 04504 ml Output Total 350 ml 500 ml 22537 ml Balance 1553 ml 318 ml 1196 ml Intake Oral 1160 ml 120 ml 5190 ml IV Total 743 ml 698 ml 27099 ml Tube Feeding 585 ml Tube Irrigant 656 ml Output Urine Total 350 ml 500 ml 28749 ml Gastric Drainage Total 2130 ml # Bowel Movements 0 0 9 Exam General: Thin woman, mild anxiety slightly disordered thinking, no acute distress HEENT: sclerae anicteric, oral mucosa moist Neck: no JVD Chest: clear to auscultation; scattered papular erythematous lesions over her chest and shoulders Cardiac: S1S2, no murmur Abdomen: BS normal, non-tender Extremities: No edema Neuro: A&O, cranial nerves symmetric, motor strength 3-4/5, coordination normal IVs and Medications Medications Reviewed: Medications were reviewed in detail Lab and Diagnostics Result Diagram: 04/11/16 0500 04/11/16 0500 X-Rays, CTs and MRIs Chest x-ray on 04/05/2016: IMPRESSION: No acute cardiopulmonary disease. Endotracheal tube remains in expected position. Dictated by: Kristopher Iglesias M.D. on 04/05/2016 at 8:36 Assessment & Plan Ms. Samano is a 45 year old female with history of polysubstance abuse and asthma , who presented to the hospital after being intubated in the field due to acute respiratory failure. Toxicology screen on admission 03/29 was positive for amphetamines, benzodiazepines, and cannabinoids. Studies have revealed she is positive for rhinovirus, and nasal culture revealed oxa-sensitive Staph aureus. She was successfully extubated 04/09/2016. Active, and/or high-risk problems: #. Acute hypoxemic respiratory failure, Javad on. She was intubated for an extensive period time for her status asthmaticus. #.Status asthmaticus; improved - Continue bronchodilators - transition her to oral prednisone the next day. #. Sinusitis, under therapy. Clinically this is improved. Continue with oral antibiotics. - Change from Augmentin to doxycycline, course a 10-14 days. #. Elevated troponin -Likely secondary to demand ischemia -Troponins: 053 --> .234 --> .122 -Echocardiogram showed EF of 40-45% and severe hypokinesis globally. #. FEN: - advancing diet as tolerated #. Severe critical illness myopathy. Proximal muscle weakness of legs, this may related to steroid myopathy after her prolonged ICU stay. This is improving. - Continue steroid taper - physical therapy. - Plan discharge to home where she has 23/10 family care Resolved, stable or chronic problems: #. Rhinovirus infection, resolved - Supportive therapies #. Lactic acidosis, resolved: -Lactic acid on 03/31/2016 1.3. #. Polysubstance abuse: -Tox screen positive for methamphetamine, benzodiazepines, and cannabinoids. -Continue to watch for signs of withdrawal. - DVT: Hep q8h - GI: PPI - Encourage PT Discharge planning, is contingent on her clinical improvement. She currently does not have pain or resources for [place] [facility]. We will continue to see how she does with physical therapy. She would like to try to return to her parent's home tomorrow, . Therapy is reassessing her seen if they think this is feasible today. Pain Evaluation: Adequate Pain Control GI Prophylaxis: Proton Pump Inhibitor VTE Prophylaxis: Sub-Q Heparin (Unfractionated) VTE Mechanical Devices: Intermittant Pneumatic CD Resuscitation Status: CPR: Attempt Resuscitation Time spent 35 minutes Angel Ruth MD Apr 13, 2016 15:11
--- NOTE | 2016-04-13 19:22 | NUR ---
Small red bumps Pt. has small red bumps on chest and on her posterior lateral back, close to the shoulder blade. Pt. states they came on sudden when she started to "itch" around noon. made aware. Pt. states no longer feeling "itchy" shortly after 1300. Pt. at this time is in bed comfortably and still states no "itchiness" at this time.
--- NOTE | 2016-04-13 22:54 | NUR ---
BOWEL MEDS/RASH Pt denied pain at this time, vitals stable. Pt in good spirits and hopeful of her recovery after discharge. Pt denied all bowel meds and stated she doesn't need them and will be discharging soon. Pt states that her bowel patterns are normal. Pt has a visible rash on her chest and her upper back. Pt denies any pain or itchiness. No other issues noted at this time.
[2016-04-14] MEDS: Albuterol-Ipratropium 3 mL Inhalation Solution NEB SCH ×3 (00:17→08:30)
[2016-04-14 03:30] VITALS: BP 122/70; PULSE 90; RESP 18; O2SAT 97
[2016-04-14 04:28] VITALS: PULSE 95; RESP 18; O2SAT 97
[2016-04-14 05:09] VITALS: PULSE 84
[2016-04-14 08:00] VITALS: BP 110/73; PULSE 103; PULSE 106; RESP 18; O2SAT 97
[2016-04-14] MEDS: Polyethylene Glycol (PEG) 17 Gm Powder PO SCH (08:30)
[2016-04-14] MEDS ORDERED: predniSONE 20 mg Tablet PO SCH (08:30)
[2016-04-14] MEDS: Senna-Docusate 8.6-50 mg Tablet PO SCH (08:30)
[2016-04-14] MEDS: Heparin 5,000 Unit/mL Inj SUBQ SCH (09:09)
[2016-04-14 12:00] VITALS: BP 110/77; PULSE 103; RESP 18; O2SAT 95
[2016-04-14] MEDS ORDERED: DOXY100T2 PO (13:53)
[2016-04-14] MEDS ORDERED: BUDE90AE IH (13:53)
[2016-04-14] MEDS ORDERED: ALBU18HF INH (13:53)
--- NOTE | 2016-04-14 13:59 | PCM.DIMED ---
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 You should follow-up with your primary doctor for these to be refilled. You should continue to take doxycycline for sinus infection for 2 more days Diet No restrictions Activity Home Health Phyical Therapy Patient Instructions Home health ordered for physical therapy due to severe muscular deconditioning Follow-up plan Contact her primary care provider for an appointment within 1 week. Follow-up Provider: Carlton Villarreal MD Follow-up with PCP in: 1 week Angel Ruth MD Apr 14, 2016 13:59
--- NOTE | 2016-04-14 15:14 | NUR ---
Discharge Patient maintaining SpO2 in the mid 90s on RA. VSS. Denies SOB/dyspnea. Denies pain/discomfort. Patient is still weak but has family willing to help care for her at home. Discharge instructions printed and reviewed verbally with patient and family. Rx faxed to patients pharmacy. LUNA DC'd by IV therapy RN. Patient left unit via WC with all personal belongings, accompanied by her parents and transported home via personal vehicle.
--- NOTE | 2016-04-14 18:51 | PCM.DC.MED ---
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 The patient was noted to be tachycardic during her 2-D echocardiogram. The has a global cardiomyopathy that may be tachycardia mediated and stress related to her recent acute hypoxemic respiratory failure. There are no regional wall motion abnormalities that would be indicative of an ischemic mechanism. The patient does have risk factors including tobacco abuse and family medical history, therefore an ischemic mechanism cannot be totally ruled out. The patient has not had any type of anginal symptom since being extubated. The patient's elevated troponins are most likely secondary to demand ischemia related to her acute respiratory failure. I suspect that since the patients tachycardia has resolved and as the patient continues to recover from her severe respiratory illness her left ventricular function will improve. The patient is stable from a cardiac perspective with no anginal symptoms and no symptoms of fluid overload. Recommendation: 1. No specific cardiac treatment. 2. Follow up with PCP 3. Discussed with Dr. Ventura, Cardiology will sign off and see only if called. 4. Thank You for asking us to evaluate this patient. Kurtis Baker [facility] General surgery PATIENT: OSMANY SAMANO : 1970 MR#: [id number] ADMIT: 03/29/2016 JOB ID: [id number] DATE OF SURGERY: 04/04/2016 PREOPERATIVE DIAGNOSIS(ES): Intravascular foreign body. POSTOPERATIVE DIAGNOSIS(ES): Intravascular foreign body. PROCEDURE: Right upper arm exploration with removal of intravascular foreign body. SURGEON: Kishan Murillo MD. MASONRY CONTRACTOR ADMINISTRATOR: Meliton Stuart PA-C. INDICATIONS: The patient is a 45-year-old woman who has a fragment of distal PICC line with attached wire in the venous system of her upper extremity at risk for distal embolization. FINDINGS: 1. legal administrative assistant was medically necessary due to the potential risks of catheter dislodgement with cardiac embolization. 2. Catheter fragment and wire were removed in their entirety as described below. There were no complications. . Procedures XRay, CTs & MRIs Chest x-ray on 04/05/2016: IMPRESSION: No acute cardiopulmonary disease. Endotracheal tube remains in expected position. Dictated by: Kristopher Iglesias M.D. on 04/05/2016 at 8:36 Cardiac Echo Impression Echocardiogram Report Name: OSMANY SAMANO JStudy Date: 03/30/2016 Height: 64 in Hospital Exam Location: [facility] Weight: 135 lb Gender: Female BSA: 1.7 m2 : 1970 Age: 45 yrs BP: 102/63 mmHg Reason For Study: Respiratory Arrest Ordering Physician: Performed By: Evelyn Genao Referring Physician: Dr. Lucero Villarreal Interpretation Summary Left ventricular systolic function is moderately reduced with the ejection fraction estimated to be 40-45% with moderate global hypokinesis with severe hypokinesis in the mid septal and mid inferior and inferoposterior segments. This could be an appearance consistent with an atypical stress related cardiomyopathy but clinical correlation is needed. Diastolic function could not be accurately assessed due to tachycardia. The right ventricle grossly appears normal in size with probable normal systolic function. Pulmonary artery pressures cannot be estimated because of the lack of a measurable TR jet velocity but the IVC suggests a high right atrial pressure of 15 mm Hg. Both atria are grossly normal in size. There is no obvious significant valvular heart disease. The patient was in sinus tachycardia with heart rates between 115-120 bpm during the exam. . Brief History BP: 103-134 / 67-76 mmHg HR: 80-113 bpm Twelve-lead EKG: Telemetry: Labs: 04/11/2016 1. CBC: W: 11.8, H/H: 12.7/38.2 2. CMP: Na: +139, K+: 3.9, BUN: 25, creatinine: Less than 0.30 3. Drug screen: Positive for amphetamines, benzodiazepines and cannabinoids Current cardiac medications Medications: 1. None Hospital Course Ms. Samano is a 45 year old female with history of polysubstance abuse and asthma , who presented to the hospital after being intubated in the field due to acute respiratory failure. Toxicology screen on admission 03/29 was positive for amphetamines, benzodiazepines, and cannabinoids. Studies have revealed she is positive for rhinovirus, and nasal culture revealed oxa-sensitive Staph aureus. She was successfully extubated 04/09/2016. #. Acute hypoxemic respiratory failure, Javad on. She was intubated for an extensive period time for her status asthmaticus. #.Status asthmaticus; improved. Treated glucocorticoids which were tapered to off. - Continue bronchodilators and inhaled glucocorticoid as needed #. Sinusitis, under therapy. Clinically this is improved. Continue with oral antibiotics. - Change from Augmentin to doxycycline, course a 10-14 days. To finish in 2 days #. Elevated troponin -Likely secondary to atypical stress cardiomyopathy related to amphetamine use and possibly acute asthmatic crisis. No further follow-up recommended by cardiology consult. -Troponins: 053 --> .234 --> .122 -Echocardiogram showed EF of 40-45% and severe hypokinesis globally. #. FEN: -Normal diet at time of discharge #. Severe critical illness myopathy. Proximal muscle weakness of legs, this may related to steroid myopathy after her prolonged ICU stay. This is improving. - Steroids were tapered to inhaled only - Home health physical therapy, as patient is unable to transfer without assistance at this time. - Plan discharge to home where she has 23/10 family care #. Rhinovirus infection, resolved - Supportive therapies #. Lactic acidosis, resolved: -Lactic acid on 03/31/2016 1.3. #. Polysubstance abuse: -Tox screen positive for methamphetamine, benzodiazepines, and cannabinoids. Exam Vital Signs (Last) Date Time Temp Pulse Resp B/P Pulse Ox O2 Delivery O2 Flow Rate FiO2 04/14/16 12:00 36.7 103 18 110/77 95 Room Air 04/11/16 08:19 1.00 04/08/16 08:56 45 Exam General: Thin woman, mild anxiety slightly disordered thinking, no acute distress HEENT: sclerae anicteric, oral mucosa moist Neck: no JVD Chest: clear to auscultation; scattered papular erythematous lesions over her chest and shoulders Cardiac: S1S2, no murmur Abdomen: BS normal, non-tender Extremities: No edema; arm wound healing Neuro: A&O, cranial nerves symmetric, motor strength 3-4/5, marked foot drop, coordination normal Test 03/29/16 16:57 03/29/16 17:48 03/30/16 04:50 03/30/16 08:20 Pro-B-Type Natriuretic Peptide 105.5pg/mL (0-249) Urine Color Yellow (YELLOW) Urine Appearance Clear (CLEAR,HAZY) Urine pH 6.0 (5.0-8.0) Urine Specific [place] 1.028 (1.003-1.035) Urine Protein 30mg/dL (NEG,TRACE) Urine Glucose (UA) Negativemg/dL (NEGATIVE) Urine Ketones Negativemg/dL (NEGATIVE) Urine Occult Blood Negative (NEGATIVE) Urine Nitrite Negative (NEGATIVE) Urine Bilirubin Negative (NEGATIVE) Urine Urobilinogen Normalmg/dL (NORMAL) Urine Leukocyte Esterase Negative (NEGATIVE) Urine RBC 0-2/hpf (0-2) Urine WBC 0-5/hpf (0-5) Urine Epithelial Cells Occasional/hpf (NONE-MOD) Urine Crystals None seen (NONE SEEN) Urine Bacteria Few/hpf (NONE-FEW) Urine Hyaline Casts None/lpf (NONE) Urine Granular Casts Rare (NONE SEEN) Urine Waxy Casts None seen (NONE SEEN) Urine Red Blood Cell Casts None seen (NONE SEEN) Urine White Blood Cell Casts None seen (NONE SEEN) Urine Mucus None seen (None Seen) Urine Trichomonas None seen (NONE SEEN) Urine Yeast None (NONE SEEN) Urinalysis Comment None Urine Culture Reflexed Not indicated Urine Opiates Screen Negative Urine Methadone Screen Negative Urine Barbiturates Screen Negative Urine Amphetamines Screen Positive Urine Benzodiazepines Screen Positive Urine Cocaine Metabolite Screen Negative Urine Cannabinoids Screen Positive Hemoglobin A1c 5.7% (4.8-5.6) Troponin T 0.122ug/L (0.0-0.011) Test 03/31/16 08:15 03/31/16 10:05 04/01/16 03:27 04/04/16 07:35 Lactic Acid Level 1.3mmol/L (0.4-2.0) Vancomycin Level Trough 3.8mcg/mL Prealbumin 20mg/dL (20-40) Fungal Antibodies <31pg/mL (.) Test 04/04/16 07:45 04/06/16 04:00 04/07/16 05:25 04/08/16 04:00 Nucleated Red Blood Cells 1/100 WBC (0-24) Metamyelocytes % 1% (0-0) Band Neutrophils % 6% (1-5) Myelocytes % 1% (0-0) Mtyju-0-Wsfizsizgon 160mg/dL (90-200) Procalcitonin 0.06ng/mL (See Comment) Test 04/10/16 14:35 04/11/16 05:00 Hold Blue Top Tube Received (Received) Hold [place] Top Tube Received (Received) White Blood Count 11.8th/mm3 (3.8-10.1) Red Blood Count 4.77mil/mm3 (3.90-5.20) Hemoglobin 12.7g/dL (12.0-15.6) Hematocrit 38.2% (35.0-46.0) Mean Corpuscular Volume 80.1fL (81-100) Mean Corpuscular Hemoglobin 26.6pg (27.0-35.0) Mean Corpuscular Hemoglobin Concent 33.2% (32.0-37.0) Red Cell Distribution Width 14.3% (12.3-15.4) Platelet Count 233bil/L (150-400) Neutrophils (%) (Auto) 80.6% (40-74) Lymphocytes (%) (Auto) 12.3% (14-46) Monocytes (%) (Auto) 5.1% (4-12) Eosinophils (%) (Auto) 0.1% (0-5) Basophils (%) (Auto) 0.1% (0-3) Sodium Level 139mEq/L (134-144) Potassium Level 3.9mEq/L (3.5-5.2) Chloride Level 101mEq/L (97-108) Carbon Dioxide Level 25mmol/L (18-29) Blood Urea Nitrogen 11mg/dL (6-24) Creatinine < 0.30mg/dL (0.57-1.00) Estimat Glomerular Filtration Rate 343mL/min (>59) Glucose Level 105mg/dL (60-99) Calcium Level 8.6mg/dL (8.5-10.1) Phosphorus Level 3.4mg/dL (2.5-4.9) Magnesium Level 1.6mg/dL (1.6-2.6) Total Bilirubin 0.7mg/dL (0.0-1.2) Aspartate Amino Transf (AST/SGOT) 16U/L (0-50) Alanine Aminotransferase (ALT/SGPT) 39U/L (0-32) Alkaline Phosphatase 68U/L (25-150) Total Protein 5.9g/dL (6.4-8.4) Albumin 3.4g/dL (3.4-5.0) Discharge Medications Discharge Medications Budesonide (Pulmicort Flexhaler) 1 Puff/90 Mcg Aerp 1 PUFF IH BID Prescribed by: JES FRAGOSO MD Doxycycline Hyclate (Doxycycline Hyclate) 100 Mg Tablet 100 MG PO BID Prescribed by: JES FRAGOSO MD As needed Albuterol Sulfate (Ventolin HFA Inhaler) 200 Puff/18 Gm Inhaler 1 PUFF INH Q4 PRN PRN For Wheezing Prescribed by: JES FRAGOSO MD Additional med instructions Prescriptions for budesonide inhaler and day as needed albuterol have been provided for your asthma condition. You should follow-up with your primary doctor for these to be refilled. You should continue to take doxycycline for sinus infection for 2 more days Followup Plan Follow-up plan Contact her primary care provider for an appointment within 1 week. Discharge Diet: No restrictions Discharge Activity: Home Health Phyical Therapy Patient Instructions Home health ordered for physical therapy due to severe muscular deconditioning Follow-up Provider: Carlton Villarreal MD Follow-up with PCP in: 1 week Time spent 40 minutes copies to: Carlton Villarreal MD, Jeffrey W MD Apr 14, 2016 14:00
== END 2016-04-14 15:04 | disposition home health service (06) | DRG 951 ==
LOC: SED 16:42 → PCC 17:55 → CCU 19:23 → PCC 04-09 11:07
PROVIDERS: ADMIT Hospitalist; ATTEND Hospitalist
PROC: 5A1955Z Respiratory Ventilation, Greater than 96 Consecutive Hours (ICD-10-PCS; principal; 2016-03-29)
PROC: 4A033R1 Measurement of Arterial Saturation, Peripheral, Percutaneous Approach (ICD-10-PCS; 2016-03-29)
PROC: 05PY0DZ Removal of Intraluminal Device from Upper Vein, Open Approach (ICD-10-PCS; 2016-04-04)
DX: J96.01 Acute respiratory failure with hypoxia (principal); E87.2 Acidosis; I24.8 Other forms of acute ischemic heart disease; T82.518A Breakdown (mechanical) of other cardiac and vascular devices and implants, initial encounter; J45.902 Unspecified asthma with status asthmaticus; I51.81 Takotsubo syndrome; J96.02 Acute respiratory failure with hypercapnia; J00 Acute nasopharyngitis [common cold]; F17.210 Nicotine dependence, cigarettes, uncomplicated; F15.10 Other stimulant abuse, uncomplicated; F12.10 Cannabis abuse, uncomplicated; B97.89 Other viral agents as the cause of diseases classified elsewhere